=== PATIENT | female | born 1935 | race Caucasian/White ===

== ENCOUNTER 2020-07-04 12:52 | Outpatient (CLI) | payer MEDICARE, OTHER, SELFPAY ==
[2020-07-04] MEDS: iohexol 300 mg/mL 50 mL Btl PO (13:56)
--- NOTE | 2020-07-04 14:30 | CT_ITS ---
WS: [id number] CT scan of the chest With IV contrast, CT scan of the abdomen and pelvis with IV contrast and oral contrast. Additional two-dimensional coronal and sagittal reconstruction was performed. 07/04/2020 Clinical Data: MALIGNANT NEOPLASM OF UNSPECIFIED SITE, GASTROINTESTINAL HEMO Comparison: None. DLP: 1685.[address] scans at [facility] use at least one of these dose optimization techniques: automat ed exposure control; mA and/or kV adjustment per patient size (includes targeted exams where dose is matched to clinical indication); or iterative reconstruction. Findings: Chest: No nodules, masses or effusions are seen. The patient's had a right mastectomy. The heart size is at the upper limits of normal with no pericardial effusion. No pneumonia or pneumot horax is seen. There are coronary artery calcifications. The pulmonary arterial system and thoracic aorta demonstrate no dilatations. The thoracic aorta shows calcification in the wall. There is a small hiatal hernia. There is no axillary or significant mediastinal adenopathy. The bones of the thorax show only moderat e osteoarthritis of the thoracic vertebral bodies. Abdomen/pelvis: . The liver, gallbladder, spleen, adrenal glands and pancreas are normal. The right kidney show excellent contrast excretion with no masses or hydronephrosis. There is a sma ll right renal cortical cyst. The left kidney is atrophic but still functions. No left renal masses o r hydronephrosis is seen. The abdominal aorta is normal in size with calcification in the wall. No appendicitis or diverticulitis is seen. Oral contrast is in the stomach and small bowel and there is no bowel dilatation. There is fecal material throughout the colon. No abscess, adenopathy, ascites , mass, obstruction or free air is seen. The bladder is unremarkable. The uterus has scattered calcifications within. No inguinal hernia is se en. There is moderate osteoarthritis of the lumbar vertebral bodies with a 0.4 cm subluxation of L4 on L5 and degenerative disc disease at L5-S1. CT/CT chest abd pel w con* Impression: 1. Negative for acute cardiopulmonary disease. 2. Negative for acute intra-abdominal or pelvic abnormalities. 3. Cardiomegaly and coronary artery calcification. 4. Small left kidney.
[2020-07-04] MEDS: iodixanol 320 mg/mL 100mL Btl IV (14:44)
== END 2020-07-04 12:53 | disposition home or self-care (01) ==
PROVIDERS: PCP Family Medicine; Visit Provider Family Medicine
DX: C50.919 Malignant neoplasm of unspecified site of unspecified female breast (principal); D64.9 Anemia, unspecified; K92.2 Gastrointestinal hemorrhage, unspecified; I51.7 Cardiomegaly; I25.10 Atherosclerotic heart disease of native coronary artery without angina pectoris
CPT/HCPCS: 71260; 74177; Q9967

== ENCOUNTER → 2020-07-21 13:13 | Day surgery (SDC) | payer MEDICARE, OTHER, SELFPAY ==
[2020-07-21 13:30] VITALS: BP 160/67; PULSE 59; RESP 16; TEMP 37.3; O2SAT 99
[2020-07-21 13:31] VITALS: BMI 23.7
[2020-07-21 13:51] LABS: Hematocrit 30.1 % (37.0-47.0); Hemoglobin 8.9 g/dL (11.5-15.3)
[2020-07-21] MEDS: ferric carboxy (IVPB) 750 MG in sodium chloride 0.9% (100 ml) 100 ML 345 MG IV (14:15)
[2020-07-21 14:58] VITALS: BP 192/66; PULSE 63; RESP 18; TEMP 36.6; O2SAT 100
== END ==
PROVIDERS: Internal Medicine Cardiovascular Disease; PCP Family Medicine; Visit Provider Family Medicine
DX: Z78.9 Other specified health status (principal); D50.9 Iron deficiency anemia, unspecified; D64.9 Anemia, unspecified; C18.9 Malignant neoplasm of colon, unspecified
CPT/HCPCS: 85014; 85018; 96365; J1439

== ENCOUNTER → 2020-07-28 13:43 | Day surgery (SDC) | payer MEDICARE, OTHER, SELFPAY ==
[2020-07-28 14:16] LABS: Hematocrit 32.2 % (37.0-47.0); Hemoglobin 9.6 g/dL (11.5-15.3)
[2020-07-28] MEDS: ferric carboxy (IVPB) 750 MG in sodium chloride 0.9% (100 ml) 100 ML 345 MG IV (14:29)
[2020-07-28 14:35] VITALS: BP 160/67; PULSE 61; RESP 18; TEMP 36.7; O2SAT 98
== END ==
PROVIDERS: PCP Family Medicine; Visit Provider Family Medicine
DX: D50.9 Iron deficiency anemia, unspecified (principal); C18.9 Malignant neoplasm of colon, unspecified
CPT/HCPCS: 85014; 85018; 96365; J1439

== ENCOUNTER 2020-08-12 14:43 | Inpatient (IN) | payer MEDICARE, OTHER, SELFPAY ==
[2020-08-12] VITALS (17 sets, daily range): BP systolic 114–189; BP diastolic 57–94; PULSE 54–77; RESP 16–21; TEMP 36.6–37.4; O2SAT 92–96; BMI 23.0
--- NOTE | 2020-08-12 14:56 | ECG_ITS ---
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: : 1935 Requested By: Danny Jones Order Number: [id number] Reading MD: SEVERO LEVIN Measurements Intervals [place] Rate: 64 P: 62 FL: 211 QRS: -38 QRSD: 158 T: 117 QT: 468 QTc: 486 Interpretive Statements SINUS RHYTHM WITH FIRST DEGREE AV BLOCK LEFT AXIS DEVIATION [QRS AXIS < -30] LEFT BUNDLE BRANCH BLOCK [120+ ms QRS DURATION, 80+ ms Q/S IN V1/V2, 85+ ms R IN I/aVL/V5/V6] Compared to ECG 12/10/2018 09:21:00 First degree AV block now present Left-axis deviation now present Left bundle-branch block now present Atrial fibrillation no longer present Myocardial infarct finding no longer present T-wave abnormality no longer present Possible ischemia no longer present Electronically Signed On 08-12-2020 19:18:34 CDT by SEVERO LEVIN [id number]
--- NOTE | 2020-08-12 14:56 | XRR_ITS ---
PROCEDURE INFORMATION: Exam: XR Chest Exam date and time: 08/12/2020 2:58 PM Age: 85 years old Clinical indication: Cough and dyspnea; Additional info: Dyspnea/cough TECHNIQUE: Imaging protocol: XR of the chest. Views: 1 view. COMPARISON: CT chest abd pel w con* 07/04/2020 2:40 PM FINDINGS: Lungs: Hyperinflation. No CHF or focal consolidation. Pleural spaces: Unremarkable. No pleural effusion. No pneumothorax. Heart/Mediastinum: Unremarkable. No cardiomegaly. Bones/joints: No acute findings. XR/XR chest 1V portable [id number] IMPRESSION: No acute findings.
--- NOTE | 2020-08-12 15:09 | W.ED.CHESTPA ---
HPI - Chest Pain General: Chief Complaint: Chest Pain Stated Complaint: SOB Time Seen by Provider: 08/12/20 14:45 History of Present Illness: HPI narrative: 85-year-old female with a known history of coronary disease and atrial fibrillation. She presents to the emergency room with complaints of increasing shortness of breath decreasing exercise tolerance she states she has had this for several days but it got particularly noticeable and worse since yesterday. She has a accompanying chest heaviness/discomfort with it as well. She recently has been transitioning come from carvedilol to amiodarone by mouth under the supervision of her occasional babysitter. Additionally she recently had a colonoscopy and an EGD. On a colonoscopy there is a large polyp removed there planning to rebiopsy this area. It was evidently found to be cancerous but because of her overall medical condition resection has not been pursued at this point. Prior to the colonoscopy she was on Xarelto but that was stopped. She also had previously been on digoxin that was stopped as well we have been monitoring her hemoglobin. It actually been increasing in 4 to was [id number] it was 9 6. She is not had any bright red blood per rectum. Her son is a physician and noted that she had increased crackles and there is a concern of congestive heart failure. She had a coronary angiogram done approximately a year ago in [place] there were some complications it was dissected and they had to do a procedure to bypass the damaged vessel. Per the son previous echocardiogram showed an EF of 35%. MD complaint: chest heaviness and chest discomfort Pertinent past history: coronary artery disease and other (Atrial fibrillation) Onset (ago): day(s) (1) Timing of current episode: episodic Onset: during exertion Pain radiation: none Severity: mild Quality: heaviness Relieving factors: rest Exacerbating factors: exertion Context: recent surgery and new medications Associated symptoms: Reports dyspnea, leg edema and nausea; Deny abdominal pain, diaphoresis, fever(s), palpitations, sense of impending doom, syncope or vomiting Treatment prior to arrival: none Review of Systems Const: Denies: fever(s) or diaphoresis ENMT: Denies: throat pain, ear or mastoid pain, nasal discharge or nasal congestion Card: Denies: palpitations or syncope Resp: Reports: dyspnea GI: Reports: nausea; Denies: abdominal pain or vomiting : Denies: flank pain, difficulty voiding, dysuria, urinary frequency or urinary urgency Skin/Breast: Denies: rash or pruritus PFSH ED PFSH: Medical History (Updated 08/14/20 @ 11:17 by Danny Bennett DO) Atrial flutter Breast cancer CAD (coronary artery disease) Dissection of coronary artery HTN (hypertension) Hyperlipidemia Ischemic cardiomyopathy Surgical History (Updated 08/12/20 @ 17:46 by Nicolas Murphy MD) H/O mastectomy Hx of colonoscopy with polypectomy S/P right coronary artery (RCA) stent placement Status post insertion of drug-eluting stent into left anterior descending (LAD) artery for coronary artery disease Family History Mother Alzheimer disease Father Stroke Atrial fibrillation Other CAD (coronary artery disease) Hyperlipidemia Hypertension Social History Smoking and tobacco status: never smoked Alcohol intake: never Physical Exam Const: COMMON NORMALS: no acute distress GENERAL APPEARANCE: cooperative and comfortable ORIENTATION/CONSCIOUSNESS: Yes awake, Yes oriented to person, Yes oriented to place and Yes oriented to time HENMT: COMMON NORMALS: normocephalic, atraumatic and hearing grossly normal bilaterally HEAD & SCALP: normocephalic and atraumatic Resp: AUSCULTATION: crackles Cardio: COMMON NORMALS: No murmurs present (Cardio) RATE: bradycardic RHYTHM: abnormal rhythm irregularly irregular GI: COMMON NORMALS: Soft to palpation and No hepatosplenomegaly present AUSCULTATION: Yes normoactive bowel sounds PALPATION: Yes Soft to palpation, No Tenderness to palpation present (GI), No Guarding due to palpation present (GI) and Yes No hepatosplenomegaly present Extremity: COMMON NORMALS: normal to inspection, capillary refill normal, no clubbing, cyanosis or edema, no calf tenderness and no pedal edema Neuro: SENSORIUM/ORIENTATION: Yes oriented to person, Yes oriented to place and Yes oriented to time Skin: COMMON NORMALS: no rashes or lesions noted GENERAL SKIN EXAM: no rashes or lesions noted Course Vital Signs: Vital signs: Vital Signs Temperature 98.3 F 08/14/20 10:45 Pulse Rate 66 08/14/20 10:45 Respiratory Rate 19 H 08/14/20 10:45 Blood Pressure 136/69 04/26/21 10:45 Pulse Oximetry 96 08/14/20 10:45 MDM - Chest Pain MDM Narrative: Medical decision making narrative: Admit. She has a new left bundle branch block CPK is not significantly elevated does appear she is in congestive heart failure discussed with her sons, one of whom is a physician on staff here as well as with Dr. Marcum. Orders are written echo is been ordered. Lab Data: Labs: Lab Results 08/12/20 08/12/20 08/12/20 Range/Units 15:02 15:02 15:02 WBC 11.7 H (4.0-10.0) 10^3/ uL RBC 4.67 (4.1-5.3) 10^6/u L Hgb 13.0 (11.5-15.3) g/dL Hct 41.6 (37.0-47.0) % MCV 89.1 (81-99) fL MCH 27.8 L (28.0-34.0) pg MCHC 31.3 (30.0-36.0) g/dL RDW 23.2 H (12.1-15.1) % Plt Count 225 (130-400) 10^3/c mm MPV 9.7 (7.4-10.4) fL Neut % (Auto) 80.3 % Lymph % (Auto) 9.7 % [place] % (Auto) 8.9 % Eos % (Auto) 0.4 % Baso % (Auto) 0.4 % Neut # (Auto) 9.39 H (1.8-7.7) 10^3/u L Lymph # (Auto) 1.1 (0.8-4.8) 10^3/u L [place] # (Auto) 1.0 H (0.2-0.9) 10^3/u L Eos # (Auto) 0.1 (0.0-0.8) 10^3/u L Baso # (Auto) 0.1 (0.0-0.1) 10^3/u L Nucleated RBC % (a uto) 0 % Nucleated RBCs # 0.0 /100WBC Sodium 132 L (136-145) mmol/L Potassium 3.6 (3.5-5.1) mmol/L Chloride 94 L (98-107) mmol/L Carbon Dioxide 26 (22-29) mmol/L Anion Gap 15.6 (5-19) BUN 10 (8-23) mg/dL Creatinine 0.8 (0.5-0.9) mg/dL GFR Calculation Not Reportable Glucose 115 (65-115) mg/dL Calculated Osmolal ity 274 L (285-295) mOsm/k g Calcium 8.6 (8.5-10.5) mg/dL Magnesium 1.9 (1.7-2.3) mg/dL Total Bilirubin 1.1 (0.15-1.2) mg/dL AST 13 (0-32) U/L ALT 13 (0-33) U/L Alkaline Phosphata se 117 H (35-105) IU/L Creatine Kinase (26-192) U/L Troponin T Baselin e 41 H (0-10) ng/L NT-Pro-B Natriuret Pep 3124 H (0-450) pg/mL Total Protein 6.2 L (6.6-8.7) g/dL Albumin 4.2 (3.5-5.2) g/dL Globulin 2.0 (1.3-4.6) g/dL Folate (4.8-37.3) ng/mL TSH 3.43 (0.27-4.20) uIU/ mL Urine Color (Yellow) Urine Appearance (CLEAR) Urine pH (5-7) Ur Specific Gravit y (1.005-1.030) Urine Protein (Negative) Urine Glucose (UA) (Normal) Urine Ketones (Negative) Urine Blood (Negative) Urine Nitrate (Negative) Urine Bilirubin (Negative) Urine Urobilinogen (Negative) mg/dL Ur Leukocyte Meenu ase (Negative) Urine RBC (0-2) /hpf Urine WBC (0-5) /hpf Ur Squamous Epith Cells (0-5) /hpf Amorphous Sediment Urine Bacteria (NONE) /hpf Digoxin (0.6-1.2) ng/mL 08/12/20 08/12/20 08/12/20 Range/Units 15:02 15:02 15:02 WBC (4.0-10.0) 10^3/ uL RBC (4.1-5.3) 10^6/u L Hgb (11.5-15.3) g/dL Hct (37.0-47.0) % MCV (81-99) fL MCH (28.0-34.0) pg MCHC (30.0-36.0) g/dL RDW (12.1-15.1) % Plt Count (130-400) 10^3/c mm MPV (7.4-10.4) fL Neut % (Auto) % Lymph % (Auto) % [place] % (Auto) % Eos % (Auto) % Baso % (Auto) % Neut # (Auto) (1.8-7.7) 10^3/u L Lymph # (Auto) (0.8-4.8) 10^3/u L [place] # (Auto) (0.2-0.9) 10^3/u L Eos # (Auto) (0.0-0.8) 10^3/u L Baso # (Auto) (0.0-0.1) 10^3/u L Nucleated RBC % (a uto) % Nucleated RBCs # /100WBC Sodium (136-145) mmol/L Potassium (3.5-5.1) mmol/L Chloride (98-107) mmol/L Carbon Dioxide (22-29) mmol/L Anion Gap (5-19) BUN (8-23) mg/dL Creatinine (0.5-0.9) mg/dL GFR Calculation Glucose (65-115) mg/dL Calculated Osmolal ity (285-295) mOsm/k g Calcium (8.5-10.5) mg/dL Magnesium (1.7-2.3) mg/dL Total Bilirubin (0.15-1.2) mg/dL AST (0-32) U/L ALT (0-33) U/L Alkaline Phosphata se (35-105) IU/L Creatine Kinase 31 (26-192) U/L Troponin T Baselin e (0-10) ng/L NT-Pro-B Natriuret Pep (0-450) pg/mL Total Protein (6.6-8.7) g/dL Albumin (3.5-5.2) g/dL Globulin (1.3-4.6) g/dL Folate 12.2 (4.8-37.3) ng/mL TSH (0.27-4.20) uIU/ mL Urine Color (Yellow) Urine Appearance (CLEAR) Urine pH (5-7) Ur Specific Gravit y (1.005-1.030) Urine Protein (Negative) Urine Glucose (UA) (Normal) Urine Ketones (Negative) Urine Blood (Negative) Urine Nitrate (Negative) Urine Bilirubin (Negative) Urine Urobilinogen (Negative) mg/dL Ur Leukocyte Meenu ase (Negative) Urine RBC (0-2) /hpf Urine WBC (0-5) /hpf Ur Squamous Epith Cells (0-5) /hpf Amorphous Sediment Urine Bacteria (NONE) /hpf Digoxin 0.4 L (0.6-1.2) ng/mL 08/12/20 Range/Units 15:41 WBC (4.0-10.0) 10^3/ uL RBC (4.1-5.3) 10^6/u L Hgb (11.5-15.3) g/dL Hct (37.0-47.0) % MCV (81-99) fL MCH (28.0-34.0) pg MCHC (30.0-36.0) g/dL RDW (12.1-15.1) % Plt Count (130-400) 10^3/c mm MPV (7.4-10.4) fL Neut % (Auto) % Lymph % (Auto) % [place] % (Auto) % Eos % (Auto) % Baso % (Auto) % Neut # (Auto) (1.8-7.7) 10^3/u L Lymph # (Auto) (0.8-4.8) 10^3/u L [place] # (Auto) (0.2-0.9) 10^3/u L Eos # (Auto) (0.0-0.8) 10^3/u L Baso # (Auto) (0.0-0.1) 10^3/u L Nucleated RBC % (a uto) % Nucleated RBCs # /100WBC Sodium (136-145) mmol/L Potassium (3.5-5.1) mmol/L Chloride (98-107) mmol/L Carbon Dioxide (22-29) mmol/L Anion Gap (5-19) BUN (8-23) mg/dL Creatinine (0.5-0.9) mg/dL GFR Calculation Glucose (65-115) mg/dL Calculated Osmolal ity (285-295) mOsm/k g Calcium (8.5-10.5) mg/dL Magnesium (1.7-2.3) mg/dL Total Bilirubin (0.15-1.2) mg/dL AST (0-32) U/L ALT (0-33) U/L Alkaline Phosphata se (35-105) IU/L Creatine Kinase (26-192) U/L Troponin T Baselin e (0-10) ng/L NT-Pro-B Natriuret Pep (0-450) pg/mL Total Protein (6.6-8.7) g/dL Albumin (3.5-5.2) g/dL Globulin (1.3-4.6) g/dL Folate (4.8-37.3) ng/mL TSH (0.27-4.20) uIU/ mL Urine Color Yellow (Yellow) Urine Appearance Sl hazy (CLEAR) Urine pH 6.5 (5-7) Ur Specific Gravit y 1.010 (1.005-1.030) Urine Protein Neg (Negative) Urine Glucose (UA) Norm (Normal) Urine Ketones Negative (Negative) Urine Blood 2+ H (Negative) Urine Nitrate Negative (Negative) Urine Bilirubin Neg (Negative) Urine Urobilinogen Norm (Negative) mg/dL Ur Leukocyte Meenu ase 1+ H (Negative) Urine RBC 5-10 H (0-2) /hpf Urine WBC 10-15 H (0-5) /hpf Ur Squamous Epith Cells 0-4 H (0-5) /hpf Amorphous Sediment Not Reportable Urine Bacteria Trace (NONE) /hpf Digoxin (0.6-1.2) ng/mL Discharge Plan Discharge Patient Disposition: Admitted As Inpatient Admit Provider: Nicolas Murphy Clinical Impression: CHF (congestive heart failure), CAD (coronary artery disease), Atrial flutter, Ischemic cardiomyopathy, HTN (hypertension), Anemia Condition: Stable Discharge Diet: Cardiac Discharge Activity: Resume usual activity Coding Level of Care Code 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
[2020-08-12] MEDS: FUROsemide 10 mg/mL SDV 10mL 60 MG IVP (15:10)
[2020-08-12] MEDS: nitroglycerin 1 gm/inch oint Pkt 1 INCH TOPICAL (15:13)
[2020-08-12 15:28] LABS: Basophils # 0.1 10^3/uL (0.0-0.1); Basophils % 0.4 %; Eosinophils # 0.1 10^3/uL (0.0-0.8); Eosinophils % 0.4 %; Hematocrit 41.6 % (37.0-47.0); Lymphocytes # 1.1 10^3/uL (0.8-4.8); Lymphocytes % 9.7 %; Mean Corpuscular HGB Conc 31.3 g/dL (30.0-36.0); Mean Corpuscular Hemoglobin 27.8 pg (28.0-34.0); Mean Corpuscular Volume 89.1 fL (81-99); Mean Platelet Volume 9.7 fL (7.4-10.4); Monocytes % 8.9 %; Neutrophils # 9.39 10^3/uL (1.8-7.7); Neutrophils % 80.3 %; Nucleated Red Blood Cells % 0 %; Platelet Count 225 10^3/cmm (130-400); Red Blood Count 4.67 10^6/uL (4.1-5.3); Red Cell Distribution Width 23.2 % (12.1-15.1); White Blood Count 11.7 10^3/uL (4.0-10.0)
[2020-08-12 15:50] LABS: Troponin(5th) Baseline 41 ng/L (0-10)
[2020-08-12 16:01] LABS: Alanine Aminotransferase 13 U/L (0-33); Albumin Level 4.2 g/dL (3.5-5.2); Alkaline Phosphatase 117 IU/L (35-105); Anion Gap 15.6 (5-19); Aspartate Amino Transferase 13 U/L (0-32); Blood Urea Nitrogen 10 mg/dL (8-23); Calcium 8.6 mg/dL (8.5-10.5); Carbon Dioxide 26 mmol/L (22-29); Chloride 94 mmol/L (98-107); Glucose 115 mg/dL (65-115); Magnesium 1.9 mg/dL (1.7-2.3); NT Pro B Type Natriuretic Pept 3124 pg/mL (0-450); Osmolality Calculated 274 mOsm/kg (285-295); Potassium 3.6 mmol/L (3.5-5.1); Sodium 132 mmol/L (136-145); Thyroid Stimulating Hormone 3.43 uIU/mL (0.27-4.20); Total Bilirubin 1.1 mg/dL (0.15-1.2); Total Protein 6.2 g/dL (6.6-8.7)
[2020-08-12 16:06] LABS: Urine Appearance SL Hazy (CLEAR); Urine Color Yellow (Yellow); pH Urine 6.5 (5-7)
[2020-08-12 16:07] LABS: Add Urine Microscopic? YES; Bilirubin Urine Neg (Negative); Blood Urine 2+ (Negative); Glucose Urine UA Norm (Normal); Ketones Urine Negative (Negative); Leukocyte Esterase Urine 1+ (Negative); Nitrate Urine Negative (Negative); Protein Urine Neg (Negative); Urobilinogen Urine Norm (Negative)
[2020-08-12 16:08] LABS: Bacteria Urine TRACE /hpf; Squamous Epithelial Cell Urine 0-4 /hpf (0-5)
[2020-08-12 16:09] LABS: Add Urine Culture? Yes
[2020-08-12 16:20] LABS: Digoxin 0.4 ng/mL (0.6-1.2)
[2020-08-12 16:25] LABS: Creatine Phosphokinase 31 U/L (26-192)
--- NOTE | 2020-08-12 16:56 | ECG_ITS ---
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1935 Requested By: Danny Jones Order Number: [id number] Reading MD: SEVERO LEVIN Measurements Intervals [place] Rate: 66 P: 68 MT: 199 QRS: -45 QRSD: 172 T: 111 QT: 475 QTc: 501 Interpretive Statements SINUS RHYTHM LEFT AXIS DEVIATION [QRS AXIS < -30] LEFT BUNDLE BRANCH BLOCK [120+ ms QRS DURATION, 80+ ms Q/S IN V1/V2, 85+ ms R IN I/aVL/V5/V6] Compared to ECG 08/12/2020 14:52:27 First degree AV block no longer present Electronically Signed On 08-12-2020 19:19:27 CDT by SEVERO LEVIN [id number]
--- NOTE | 2020-08-12 17:36 | P.HP_ITS ---
Providers/Chief Complaint Admitting Physician: Nicolas Murphy MD Primary Care Provider: Betty Abreu MD Chief Complaint: SOB History of Present Illness Nika Abreu is a 85 year old female with past medical history of hypertension, hyperlipidemia, atrial fibrillation, CAD post PCI to LCx, LAD dissection, breast cancer postmastectomy, recent diagnosis of mucinous joi ocarcinoma of intestine, congestive heart failure who was brought into the ER today after feeling generalized weakness getting worse for 3 months along with worsening shortness of breath for last 2 weeks getting worse for last 4 days more so since last night. Shortness of breath that is worse on exertion unusual which has been getting worse gradually and occasionally even after lying down occasionally. Patient also states that for last few weeks she has been having burning sensation in the epigastric area going up to retrosternal area on exertion and on eating and drinking and taking pills. Patient had endoscopy at [place] last month which was reported normal. Patient also been having atrial fibrillation with rapid ventricular response on and off recently for which she has been transitioned over from carvedilol to amiodarone. Patient was recently started on amiodarone loading with 400 mg twice daily for 7 days which was shortened as patient regained normal sinus rhythm and developed bradycardia for which she was transitioned over to 200 mg twice daily with plan to further change to 200 mg daily. Carvedilol has also been weaned off from 25 mg twice daily to 6.25 mg twice daily. Of note, patient was also diagnosed of mucinous adenocarcinoma of intestine while work-up of anemia to recent colonoscopy. Patient most likely is being worked up for possible hemicolectomy at [place]. Patient denies any nausea, vomiting, headache, dizziness, abdominal pain, cough, fever, sick contacts, swelling in legs more than usual recently. Blood work in the ER showed white count of 11.7, hemoglobin of 13 which is most recently 9.6 on July 28, sodium of 132, chloride of 94, creatinine of 0.8, magnesium of 1.9, AST/ALT of 13/13, alkaline phosphatase of 117 with baseline troponin of 41 and delta of 1.45 in 2 hours, proBNP of 3124, TSH of 3.43. Urinalysis negative for any signs of UTI, digoxin of 0.4. EKG showing normal sinus rhythm with left bundle branch block which is new as well. Review of Systems General: Reports: 10 or more systems reviewed and unremarkable except in HPI and below Const: Denies: fever(s), chills, body aches, change in appetite, change in weight, malaise, night sweats, diaphoresis, change in sleep pattern, daytime sleepiness or snoring Eyes: Denies: change in vision, blurry vision, photophobia, eye discomfort or eye discharge ENMT: Denies: throat pain, enlarged tonsils, hoarseness, mouth pain, oral sores, dry mouth, tinnitus, nasal congestion or post nasal drip Card: Denies: chest pain, palpitations, irregular heart rhythm, edema, swelling of feet/ankles, lightheadedness, syncope, pre-syncope, dyspnea on exertion, orthopnea, leg pain with exertion or acrocyanosis Resp: Denies: dyspnea, productive cough, non-productive cough, wheezing, stridor, pain on inspiration, change in phlegm color, hemoptysis or chest congestion GI: Denies: abdominal pain, nausea, vomiting, hematemesis, coffee ground emesis, dysphagia, heartburn, diarrhea, constipation, bloating, GI cramping, change in bowel habits, pain on defecation, hematochezia or melena : Denies: flank pain, dysuria, urinary frequency, urinary urgency, urinary hesitancy, nocturia or hematuria Musc: Denies: neck pain, back pain, extremity pain, joint pain, joint swelling, joint redness, joint stiffness or limited range of motion Neuro: Denies: headache(s), numbness in extremities, weakness in extremities, sensory changes, lack of coordination, difficulty walking, frequent falls, diz ziness, vertigo, confusion, Slurred speech present, difficulty communicating thoughts or seizure-like activity Psych: Denies: anxiety, depression, mood swings, panic attacks, hopelessness or irritability Endo: Denies: polyuria, polydipsia, tired all the time, cold intolerance, excessive sweating, flushing or heat intolerance Kole/Lymph: Denies: easy bruising or easy bleeding All/Imm: Denies: tongue swelling, facial swelling or acute wheezing Medications/Allergies Home Medications Medication Instructions Recorded Confirmed Last Taken Type amiodarone See Rx Instructions .ROUTE .COMPLEX 08/12/20 08/12/20 08/12/20 08:00 History aspirin [Aspir-81] 162 mg PO DAILY@08/12/20 08/12/20 08/12/20 08:00 History atorvastatin 20 mg PO DAILY@08/12/20 08/12/20 08/11/20 History carvedilol 6.25 mg PO BID@,08/12/20 08/12/20 08/12/20 08:00 History cyanocobalamin (vitamin B-12) 1,000 mcg PO DAILY 08/12/20 08/12/20 Unknown History [Vitamin B-12] losartan-hydrochlorothiazide 0.5 tab PO BID@,08/12/20 08/12/20 08/12/20 08:00 History pantoprazole [Protonix] 40 mg PO DAILY@08/12/20 08/12/20 08/12/20 History Allergies Allergy/AdvReac Type Severity Reaction Status Date / Time Penicillins Allergy Unknown Verified 08/12/20 16:13 PFSH Acute PFSH: Medical History (Updated 08/12/20 @ 22:34 by Nicolas Murphy MD) Atrial flutter Breast cancer CAD (coronary artery disease) Dissection of coronary artery HTN (hypertension) Hyperlipidemia Surgical History (Updated 08/12/20 @ 17:46 by Nicolas Murphy MD) H/O mastectomy Hx of colonoscopy with polypectomy S/P right coronary artery (RCA) stent placement Status post insertion of drug-eluting stent into left anterior descending (LAD) artery for coronary artery disease Family History Mother Alzheimer disease Father Stroke Atrial fibrillation Other CAD (coronary artery disease) Hyperlipidemia Hypertension Social History Smoking and tobacco status: never smoked Alcohol intake: never Vitals/I&O/Wt Last Vital Signs Temp 99.4 F 08/12/20 14:48 Pulse 64 08/12/20 16:20 Resp 16 08/12/20 15:01 BP 174/91 08/12/20 16:20 Pulse Ox 94 08/12/20 16:20 Weight last 48 hrs Weight 60.781 kg Physical Exam Narrative: EXAM NARRATIVE: General: No acute distress, AO x3 HEENT: PERRLA, pupils bilaterally equal and reactive Chest: Normal vesicular breath sounds, no added sounds, equal good air entry bilaterally CVS: S1-S2 regular, no murmurs, no tachycardia, no gallops, no rubs Abdomen: Soft, nontender, no organomegaly, bowel sounds present Neuro: No focal deficits, no facial deformity, AO x3, power 5/5 in all limbs Data : 08/13/20 04:58 08/13/20 04:58 A&P Assessment and plan (1) SOB (shortness of breath): Status: Acute (2) CHF (congestive heart failure): Status: Acute (3) Atrial flutter: Status: Acute Qualifiers: Atrial flutter type: unspecified Qualified Code(s): I48.92 - Unspecified atrial flutter (4) CAD (coronary artery disease): Status: Acute Qualifiers: Associated angina: without angina Coronary Disease-Associated Artery/Lesion type: [place] artery [place] vs. transplanted heart: [place] heart Qualified Code(s): I25.10 - Atherosclerotic heart disease of [place] coronary artery without angina pectoris (5) Anemia: Status: Acute (6) Hyperlipidemia: Status: Acute Qualifiers: Hyperlipidemia type: mixed hyperlipidemia Qualified Code(s): E78.2 - Mixed hyperlipidemia (7) HTN (hypertension): Status: Acute Additional A&P Information 85-year-old female with past medical history of CAD, history of PCI to RCA and history of LAD dissection, congestive heart failure with last known EF of from 35% 2 years ago, atrial fibrillation, anemia presented to the ER today with symptoms suggestive of acute exacerbation of congestive heart failure and possib le angina. Shortness of breath: Most likely because of exacerbation of congestive heart failure. Infective source including pneumonia less likely. No consolidation seen on chest x-ray, no history of fever, no leukocytosis. Patient had relief in some of her symptoms after receiving IV Lasix in the ER and diuresing around 400 cc of urine. proBNP elevated. Start patient on Lasix 40 mg IV daily. Echocardiogram to rule out pericardial effusion, EF valvular abnormalities. Daily weights. Strict input output charting. Chances of pneumonia are low but clinically resolved. For now we will hold off on antibiotics. Check urine culture, sputum culture, urine Legionella. Because of history of CAD and some atypical symptoms cannot rule out angina. Cycle troponins. Continue with home dose of aspirin, statins. Check HbA1c, lipid panel. If troponin cycle remained negative and once patient is more euvolemic most likely will plan to do Lexiscan stress test. With ongoing amiodarone loading we will have to monitor QTC. EKG in a.m. Hypertension: Goal blood pressure less than 140/90 mmHg. For now monitor blood pressures. Continue home dose of losartan 50 mg twice daily, carvedilol 6.25 mg twice daily. If needed can add long-acting nitrates. Anemia: Hemoglobin recently 9.6. 13 today most likely an aberrancy. Check iron panel, ferritin, vitamin B12, folate levels. Continue home dose of vitamin B12 for now. Stool for occult blood especially with recent history of mucinous adenocarcinoma found on polypectomy. Continue home dose of Protonix. Hyponatremia: Sodium 132 right now. Most likely from congestive heart failure. We will continue to monitor. Continue diuretic therapy for now. CODE STATUS: Discussed with patient and son at bedside. For now patient would like to be full code but would not want to have prolonged life support/mechanical ventilation if she is not to have meaningful lifestyle. Protonix for PUD prophylaxis Cardiac diet . Covid negative. SCD for DVT prophylaxis. For now hold off on Lovenox Attestations Medical Necessity Statement*: Patient require admission for more than 2 midnights for management of congestive heart failure in setting of history of CAD and atrial fibrillation. Time Spent in Patient Care: Greater than 35 minutes (>than 50% of time spent in counselling and/or direct pt care on unit) . Coding Level of Care Code Acute [employer] for [facility] Fwd Diagnoses SOB (shortness of breath) R06.02 CHF (congestive heart failure) I50.9 Atrial flutter I48.92 Atrial flutter type: unspecified CAD (coronary artery disease) I25.10 Associated angina: without angina Coronary Disease-Associated Artery/Lesion type: [place] artery [place] vs. transplanted heart: [place] heart Anemia D64.9 Hyperlipidemia E78.2 Hyperlipidemia type: mixed hyperlipidemia HTN (hypertension) I10
--- NOTE | 2020-08-12 17:59 | PC.NURSE ---
total of 1350 ml of urine produced
--- NOTE | 2020-08-12 18:00 | PC.NURSE ---
Received pt from ER Pt is alert, awake, oriented. Denies any chest pain or discomfort. Son at bedside. Call light provided to pt.
[2020-08-12] MEDS: enoxaparin 40 mg/0.4 mL Syringe SUBCUT (18:30)
[2020-08-12] MEDS: potassium chloride ER 20 mEq Tablet 40 MEQ PO (18:30)
[2020-08-12] MEDS: amiodarone 200 mg Tablet PO (18:30)
[2020-08-12 18:35] LABS: Troponin 5 2HR 42.45 ng/L (0-10); Troponin 5 2HR Delta 1.45 ABS# (0-10)
[2020-08-12] MEDS: carvedilol 6.25 mg Tablet PO (20:29)
[2020-08-12] MEDS: losartan 50 mg Tablet PO (20:29)
[2020-08-12] MEDS: atorvastatin 40 mg Tablet 20 MG PO (20:29)
--- NOTE | 2020-08-12 20:56 | ECG_ITS ---
[facility] Test Date: 2020-08-12 Pat Name: Nika Abreu Department: Room: 105 Gender: Female Production Intern: : 1935 Requested By: Danny Jones Order Number: [id number] Reading MD: SEVERO LEVIN Measurements Intervals [place] Rate: 60 P: 70 MI: 212 QRS: 20 QRSD: 95 T: 46 QT: 470 QTc: 470 Interpretive Statements SINUS RHYTHM WITH FIRST DEGREE AV BLOCK ST DEVIATION AND MODERATE T-WAVE ABNORMALITY, CONSIDER ANTERIOR ISCHEMIA [-0.1+ mV T WAVE IN V3/V4] Compared to ECG 08/12/2020 17:14:16 First degree AV block now present T-wave abnormality now present Possible ischemia now present Left-axis deviation no longer present Left bundle-branch block no longer present Electronically Signed On 08-13-2020 21:17:05 CDT by SEVERO LEVIN [id number]
[2020-08-12 21:04] LABS: Potassium, Radom Urine 25 mmol/L; Urine Random Chloride 129 mmol/L; Urine Random Sodium 124 mmol/L
[2020-08-12 21:25] LABS: Folate Level 12.2 ng/mL (4.8-37.3)
[2020-08-12 21:25] LABS: Procalcitonin 0.05 ng/mL (0-0.5); Vitamin B12 444 pg/mL (232-1245)
[2020-08-12 21:37] LABS: Iron 26 ug/dL (37-145); Percent Saturation 9.5 % (20-50); Phosphorus 1.2 mg/dL (2.5-4.5); Total Iron Binding Capacity 273 mcg/dl; Unsaturated Iron Binding 247 ug/dL (112-347)
[2020-08-13] VITALS (12 sets, daily range): BP systolic 130–142; BP diastolic 58–67; PULSE 52–74; RESP 14–23; TEMP 36.7–36.9; O2SAT 95–97
[2020-08-13 00:10] LABS: Troponin 5 6HR 44.75 ng/L (0-10); Troponin 5 6HR Delta 3.75 ng/L (0-12)
[2020-08-13 06:16] LABS: Basophils # 0.1 10^3/uL (0.0-0.1); Basophils % 0.7 %; Eosinophils # 0.1 10^3/uL (0.0-0.8); Hematocrit 36.2 % (37.0-47.0); Hemoglobin 11.2 g/dL (11.5-15.3); Lymphocytes # 1.7 10^3/uL (0.8-4.8); Lymphocytes % 23.8 %; Mean Corpuscular HGB Conc 30.9 g/dL (30.0-36.0); Mean Corpuscular Hemoglobin 27.3 pg (28.0-34.0); Mean Corpuscular Volume 88.3 fL (81-99); Mean Platelet Volume 9.9 fL (7.4-10.4); Monocytes # 0.7 10^3/uL (0.2-0.9); Monocytes % 10.3 %; Neutrophils # 4.38 10^3/uL (1.8-7.7); Neutrophils % 62.8 %; Nucleated Red Blood Cells % 0 %; Platelet Count 185 10^3/cmm (130-400); Red Cell Distribution Width 23.2 % (12.1-15.1)
[2020-08-13 06:46] LABS: Alanine Aminotransferase 9 U/L (0-33); Albumin Level 3.3 g/dL (3.5-5.2); Alkaline Phosphatase 91 IU/L (35-105); Anion Gap 12.6 (5-19); Aspartate Amino Transferase 10 U/L (0-32); Blood Urea Nitrogen 11 mg/dL (8-23); Calcium 7.8 mg/dL (8.5-10.5); Carbon Dioxide 28 mmol/L (22-29); Chloride 97 mmol/L (98-107); Chol HDL Ratio 1.75 mg/dL (0.0-4.40); Cholesterol 105 mg/dL (0-200); Ferritin 640 ng/mL (15-150); Globulin 2.3 g/dL (1.3-4.6); Glucose 86 mg/dL (65-115); HDL Cholesterol 60 mg/dL (60-100); LDL Cholesterol Calculated 33 mg/dL (50-129); Magnesium 1.7 mg/dL (1.7-2.3); Osmolality Calculated 277 mOsm/kg (285-295); Phosphorus 2.5 mg/dL (2.5-4.5); Potassium 3.6 mmol/L (3.5-5.1); Sodium 134 mmol/L (136-145); Total Bilirubin 1.1 mg/dL (0.15-1.2); Total Protein 5.6 g/dL (6.6-8.7); Triglycerides 59 mg/dL (0-150); VLDL Cholestrol Calculation 12 mg/dL (0-30)
[2020-08-13 06:48] LABS: Estmated Average Glucose 80; Hemoglobin A1C 4.4 % (4.0-6.0)
--- NOTE | 2020-08-13 08:23 | ECG_ITS ---
[facility] Test Date: 2020-08-13 Pat Name: Nika Abreu Department: Room: 105 Gender: Female Eligibility Consultant: : 1935 Requested By: Nicolas Murphy Order Number: [id number] Reading MD: SEVERO LEVIN Measurements Intervals [place] Rate: 53 P: 68 NV: 215 QRS: -9 QRSD: 113 T: 90 QT: 455 QTc: 430 Interpretive Statements SINUS BRADYCARDIA WITH FIRST DEGREE AV BLOCK ANTERIOR MYOCARDIAL INFARCTION [40+ ms Q WAVE AND/OR ST/T ABNORMALITY IN V3/V4], PROBABLY RECENT INFERIOR MYOCARDIAL INFARCTION [40+ ms Q WAVE AND/OR ST/T ABNORMALITY IN II/aVF], OF INDETERMINATE AGE ACUTE TX Compared to ECG 08/12/2020 22:08:17 Myocardial infarct finding now present Sinus rhythm no longer present T-wave abnormality no longer present Possible ischemia no longer present Electronically Signed On 08-13-2020 21:16:52 CDT by SEVERO LEVIN [id number]
--- NOTE | 2020-08-13 08:59 | PC.NURSE ---
Verbal order from Dr. Murphy to not adminster AM medications at this time, as physician is going to make adjustments. After changes have been made, ok to administer.
--- NOTE | 2020-08-13 09:46 | P.PN_ITS ---
Subjective Subjective: Interval history: On examination today morning patient sitting in bed playing Scrabble. Family at bedside. Jovial mood. She states she had a restful night. States she is feeling a lot better today. States her energy levels are good and she does not have the scratchiness in her throat which she has been having for last few days. She states she is able to get air in her lungs today. 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 tach. Patient remained asymptomatic and was unaware of of the event. Vitals/I&O/Wt Last Vital Signs Temp 98.4 F 08/13/20 07:50 Pulse 74 08/13/20 09:35 Resp 23 H 08/13/20 07:50 BP 140/67 08/13/20 07:50 Pulse Ox 96 08/13/20 09:35 08/12/20 08/13/20 08/13/20 22:59 06:59 14:59 Intake Total 106.6667 / 106.6667 120 / 120 Output Total 800 / 800 300 / 1100 Balance -800 / -800 -193.3333 / -993.3333 120 / 120 Weight last 48 hrs Weight 63.231 kg Weight 60.781 kg Physical Exam Narrative: EXAM NARRATIVE: General: No acute distress, AO x3 HEENT: PERRLA, pupils bilaterally equal and reactive Chest: Normal vesicular breath sounds, no added sounds, equal good air entry bilaterally CVS: S1-S2 regular, pansystolic murmur at the apex 2/6 going up to the anterior axilla, no tachycardia, no gallops, no rubs Abdomen: Soft, nontender, no organomegaly, bowel sounds present Neuro: No focal deficits, no facial deformity, AO x3, power 5/5 in all limbs Data : 08/13/20 04:58 08/13/20 04:58 Micro: Microbiology 08/12/20 19:33 Legionella Urinary Antigen - Final Urethra A&P Assessment and plan (1) SOB (shortness of breath): Status: Acute (2) CHF (congestive heart failure): Echocardiogram done on August 13, 2020. EF of 40%, mid to distal anterior apical akinesis, grade 2 diastolic dysfunction, moderate MR. Status: Acute (3) Atrial flutter: Status: Acute Qualifiers: Atrial flutter type: unspecified Qualified Code(s): I48.92 - Unspecified atrial flutter (4) CAD (coronary artery disease): Status: Acute Qualifiers: Associated angina: without angina Coronary Disease-Associated Artery/Lesion type: [place] artery [place] vs. transplanted heart: [place] heart Qualified Code(s): I25.10 - Atherosclerotic heart disease of [place] coronary artery without angina pectoris (5) NSVT (nonsustained ventricular tachycardia): Status: Acute (6) Anemia: Status: Acute (7) Hyperlipidemia: Status: Acute Qualifiers: Hyperlipidemia type: mixed hyperlipidemia Qualified Code(s): E78.2 - Mixed hyperlipidemia (8) HTN (hypertension): Status: Acute (9) Ischemic cardiomyopathy: Status: Acute Additional A&P Information 85-year-old female with past medical history of CAD, history of PCI to RCA and history of LAD dissection, congestive heart failure with last known EF of from 35% 2 years ago, atrial fibrillation, anemia presented to the ER today with symptoms suggestive of acute exacerbation of congestive heart failure and poss ible angina. Shortness of breath: Most likely because of exacerbation of congestive heart failure. Infective source including pneumonia less likely. No consolidation seen on chest x-ray, no history of fever, no leukocytosis. Around 600 cc negative in last 12 hours since admission. Switch to oral Lasix. Start patient on Lasix 40 mg oral daily. Daily weights, strict input output charting. Ambulate in room and monitor symptoms. Echocardiogram results appreciated with a EF of 40%, mid to distal anterior apical akinesis, grade 2 diastolic dysfunction, moderate MR. Continue to hold off on antibiotics as pneumonia less likely. Nonsustained V. tach: Can be secondary to old scar from cardiac ischemia versus mildly prolonged QTC while getting amiodarone load. Monitor QTC with EKG. Change amiodarone to 200 mg daily. Continue with Coreg 6.25 mg twice daily. Hypertension: Goal blood pressure less than 140/90 mmHg. Continue with home dose of losartan 50 mg twice a day, carvedilol 6.25 mg twice a day. Add Imdur 15 mg daily. CAD: Continue with aspirin at 81 mg daily, statins. Beta-ermias and long-acting nitrate as above. Atrial fibrillation: Sinus rhythm at present. Continue with amiodarone 200 mg daily for now. Continue with Coreg. Monitor for bradycardia. Patient hemoglobin stable. Start patient on Xarelto 15 mg daily as per the creatinine clearance of 42. Anemia: Hemoglobin recently 9.6. 13 today most likely an aberrancy. Continue home dose of vitamin B12 for now. Stool for occult blood especially with recent history of mucinous adenocarcinoma found on polypectomy. Continue home dose of Protonix. Hyponatremia: Improving. 134 today. Most likely from congestive heart failure. We will continue to monitor. Continue diuretic therapy for now. CODE STATUS: Discussed with patient and son at bedside. For now patient would like to be full code but would not want to have prolonged life support/mechanical ventilation if she is not to have meaningful lifestyle. P rotonix for PUD prophylaxis Cardiac diet SCD for DVT prophylaxis. Attestations Medical Necessity Statement*: Requires further hospitalization for management of congestive heart failure, nonsustained V. tach, atrial fibrillation on amiodarone load. Time Spent in Patient Care: Greater than 35 minutes (>than 50% of time spent in counselling and/or direct pt care on unit) . Coding Level of Care Code Acute [employer] for g Fwd Diagnoses SOB (shortness of breath) R06.02 CHF (congestive heart failure) I50.9 Atrial flutter I48.92 Atrial flutter type: unspecified CAD (coronary artery disease) I25.10 Associated angina: without angina Coronary Disease-Associated Artery/Lesion type: [place] artery [place] vs. transplanted heart: [place] heart NSVT (nonsustained ventricular tachycardia) I47.2 Anemia D64.9 Hyperlipidemia E78.2 Hyperlipidemia type: mixed hyperlipidemia HTN (hypertension) I10 Ischemic cardiomyopathy I25.5
[2020-08-13] MEDS: carvedilol 6.25 mg Tablet PO ×2 (09:52→19:39)
[2020-08-13] MEDS: losartan 50 mg Tablet PO ×2 (09:52→17:25)
[2020-08-13] MEDS: cyanocobalamin 1,000 mcg Tablet 1000 MCG PO (09:52)
[2020-08-13] MEDS: FUROsemide 40 mg Tablet PO (09:53)
[2020-08-13] MEDS: amiodarone 200 mg Tablet PO (09:53)
[2020-08-13] MEDS: aspirin 81 mg EC Tablet PO (09:53)
[2020-08-13] MEDS: pantoprazole DR 40 mg Tablet PO (09:53)
[2020-08-13] MEDS: magnesium sulfate premix 2 GM/50 ML PIGGYBACK IV (09:55)
--- NOTE | 2020-08-13 12:01 | PC.CHAP ---
Pastoral Care Encounter/Spiritual Assessment Type of Contact [] Declined merchandise pickup/receiving associate visit [] Patient/Family/Request visit [] Outpatient visit [] Follow-up visit [] Physician referral [] Code/Alert [XX] Routine visit [] Staff referral [] Actively dying [] Patient sleeping [] Family support [] [] Out of room [] Palliative care [] [] Receiving care in room [] Pre-surgical visit [] Trauma [] Long length of stay [] ICU visit [] Other: Relational/Emotional Strength [XX] Patient feels connected with others/family/visitors/staff [] Distress [] Loneliness/isolation [] Abandonment Spirituality of Patient [XX] Person of [place] [] Attends Oriental Orthodox of their [place] [XX] Believes in Prayer [] Reads Bible or Adventism materials [] There are Spiritual issues to be addressed Scaffolder Interventions [XX] Prayer [XX] Active listening [XX] Non-anxious presence [XX] Spiritual/emotional support [] Crisis/trauma care [] Spiritual counseling [] Bereavement support [] Provided bereavement packet [] Provided Bible/devotional materials [] Provided toy/stuffed animal, coloring book to patient or family member [] Provided Communion [] Anointing/[place] [] Salvation [XX] Completed spiritual assessment [] Other: Impact on Illness or Injury [] Angry [] Fearful [] Anxious [] Often cries [] Exhaustion [] Unable to work [] Unable to attend hinduism [] Unable to walk/stand [] Unable to read [] Unable to drive [] Unable to eat/drink [] Unable to sleep [] Unable to be with family [] Patient intubated [XX] Other: she recognizes that she may have to make adjustments in her life in order to maintain independent living Summary: Pt is in good spirits and has an attitude of gratitude, but is also facing some adjustments in her independence. She knows this is necessary and will adjust, but yet, the adjustments indicate the entry into a new phase of life which brings with it some loss/sadness. Time spent with patient: 30 mins
[2020-08-13] MEDS: rivaroxaban 10 mg Tablet 15 MG PO (17:24)
--- NOTE | 2020-08-13 17:36 | USCV_ITS ---
Nika Abreu Age: 85 Gender: F : 1935 Exam Date: 08/13/2020 06:28 Ordering Phys: Danny Bennett DO Technologist: Madeleine Vergara Exam Location: [facility] [place] Indication: CHF, H/o EF 35% BP: 138 / 63 HR: 50 Rhythm: Sinus Technical Quality: Adequate MEASUREMENTS (Male / Female) Normal Values 2D ECHO LV Diastolic Diameter PLAX 4.7 cm 4.2 - 5.9 / 3.9 - 5.3 cm LV Systolic Diameter PLAX 2.8 cm LV Chamber Size 4.6 cm IVS Diastolic Thickness 1.3 cm 0.6 - 1.0 / 0.6 - 0.9 cm IVS Systolic Thickness 1.8 cm LVPW Diastolic Thickness 1.2 cm 0.6 - 1.0 / 0.6 - 0.9 cm LVPW Systolic Thickness 1.5 cm RV Chamber Size 2.2 cm LVOT Diameter 1.8 cm LA Diameter 4.1 cm LA Width 3.8 cm LA Height 6.2 cm RA Width 2.4 cm RA Height 5.1 cm Aorta at Sinotubular Diameter 2.3 cm M-MODE LV Diastolic Diameter MM 5.0 cm 4.2 - 5.9 / 3.9 - 5.3 cm LV Systolic Diameter MM 3.6 cm LV Ejection Fraction MM Teich 54.8 % IVS Diastolic Thickness MM 1.1 cm 0.6 - 1.0 / 0.6 - 0.9 cm IVS Systolic Thickness MM 1.9 cm LVPW Diastolic Thickness MM 1.6 cm 0.6 - 1.0 / 0.6 - 0.9 cm LVPW Systolic Thickness MM 2.0 cm Aortic Annulus Diameter 2.7 cm LA Ao Ratio MM 1.6 MV E Point Septal Separation 0.7 cm DOPPLER AV Peak Velocity 159.0 cm/s LVOT Peak Velocity 124.0 cm/s AV Area Cont Eq vti 2.1 cm squared AV Area Cont Eq pk 2.1 cm squared MV Peak Velocity 127.0 cm/s MV Area PHT 2.7 cm squared Mitral E to A Ratio 1.9 MV E' Velocity 66.5 cm/s Mitral E to MV E' Ratio 30.4 Mitral E to LV E' Lateral Ratio 25.0 Mitral E to LV E' Septal Ratio 38.7 TR Peak Velocity 293.9 cm/s TR Peak Gradient 34.5 mmHg TR Mean Velocity 220.9 cm/s TR Mean Gradient 20.6 mmHg TR Velocity Time Integral 112.3 cm TV Peak E Velocity 49.0 cm/s Right Atrial Pressure 3.0 mmHg Pulmonary Artery Systolic Pressu 37.5 mmHg PV Peak Velocity 65.0 cm/s RV Acceleration Time 0.1 s RV Ejection Time 0.4 s RV AcT/ET 0.2 FINDINGS Left Ventricle Normal left ventricular cavity size. Moderately decreased left ventricular systolic function. Left ventricular ejection fraction is estimated at 40 %. There appeared to be Mid to distal anterior apical akinesis suggestive of ischemic heart disease.Grade II/IV diastolic dysfunction, moderately elevated filling pressures. Right Ventricle The right ventricle is normal in size and function. Right Atrium The right atrium is normal in size. Left Atrium Moderately increased left atrial size. Mitral Valve Mildly thickened mitral valve. No mitral valve stenosis. Moderate mitral valve regurgitation. Aortic Valve Structurally normal aortic valve without significant sclerosis or stenosis. There is no aortic regurgitation. Tricuspid Valve Structurally normal tricuspid valve without significant stenosis or regurgitation. Pulmonary artery systolic pressure is normal. Pulmonic Valve Mild pulmonary valve regurgitation. Pericardium Normal pericardium without effusion. Aorta Normal ascending aorta dimension. CONCLUSIONS 1-Normal left ventricular cavity size. Moderately decreased left ventricular systolic function. Left ventricular ejection fraction is estimated at 40 %. There appeared to be Mid to distal anterior apical akinesis suggestive of ischemic heart disease.Grade II/IV diastolic dysfunction, moderately elevated filling pressures. 2-No significant valve abnormalities. 3-There is no pericardial effusion. 4-Pulmonary artery systolic pressure is within normal limits. 5-Right atrial pressure is around 5 mm of mercury. 6-No significant change since the prior echocardiogram study of 12/10/2018. Kevin Allen MD (Electronically Signed) Final Date: 13 August 2020 14:48 S
[2020-08-13] MEDS: atorvastatin 40 mg Tablet 20 MG PO (19:39)
[2020-08-14] VITALS: BP 130/57; PULSE 54; RESP 14; TEMP 36.6; O2SAT 93
[2020-08-14 04:00] VITALS: BP 160/65; PULSE 60; RESP 14; TEMP 36.8; O2SAT 96
[2020-08-14 05:05] LABS: Alanine Aminotransferase 11 U/L (0-33); Albumin Level 3.4 g/dL (3.5-5.2); Alkaline Phosphatase 91 IU/L (35-105); Anion Gap 10.5 (5-19); Aspartate Amino Transferase 11 U/L (0-32); Blood Urea Nitrogen 13 mg/dL (8-23); Calcium 8.2 mg/dL (8.5-10.5); Carbon Dioxide 29 mmol/L (22-29); Chloride 97 mmol/L (98-107); Globulin 2.3 g/dL (1.3-4.6); Glucose 90 mg/dL (65-115); Magnesium 2.2 mg/dL (1.7-2.3); Osmolality Calculated 276 mOsm/kg (285-295); Potassium 3.5 mmol/L (3.5-5.1); Sodium 133 mmol/L (136-145); Total Bilirubin 0.8 mg/dL (0.15-1.2); Total Protein 5.7 g/dL (6.6-8.7)
[2020-08-14 06:00] VITALS: PULSE 60; BMI 23.2
[2020-08-14 08:00] VITALS: BP 136/69; PULSE 66; RESP 19; TEMP 36.8; O2SAT 96
[2020-08-14 08:16] VITALS: BP 136/69
[2020-08-14] MEDS: isosorbide mononitrate ER 30 mg Tablet 15 MG PO (08:16)
[2020-08-14] MEDS: pantoprazole DR 40 mg Tablet PO (08:16)
[2020-08-14] MEDS: cyanocobalamin 1,000 mcg Tablet 1000 MCG PO (08:16)
[2020-08-14] MEDS: amiodarone 200 mg Tablet PO (08:16)
[2020-08-14] MEDS: aspirin 81 mg EC Tablet PO (08:16)
[2020-08-14] MEDS: losartan 50 mg Tablet PO (08:16)
[2020-08-14] MEDS: FUROsemide 40 mg Tablet PO (08:16)
[2020-08-14] MEDS: carvedilol 6.25 mg Tablet PO (08:17)
--- NOTE | 2020-08-14 08:34 | ECG_ITS ---
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: : 1935 Requested By: Nicolas Murphy Order Number: [id number] Reading MD: SEVERO LEVIN Measurements Intervals [place] Rate: 54 P: 72 AL: 222 QRS: -15 QRSD: 109 T: 75 QT: 417 QTc: 399 Interpretive Statements SINUS BRADYCARDIA WITH FIRST DEGREE AV BLOCK POSSIBLE ANTERIOR MYOCARDIAL INFARCTION [30 ms Q WAVE IN V3/V4, OR R < 0.2 mV IN V4], OF INDETERMINATE AGE INFERIOR MYOCARDIAL INFARCTION [40+ ms Q WAVE AND/OR ST/T ABNORMALITY IN II/aVF], PROBABLY OLD Compared to ECG 08/13/2020 08:53:40 No significant changes Electronically Signed On 08-14-2020 21:30:06 CDT by SEVERO LEVIN [id number]
[2020-08-14] MEDS: potassium chloride ER 20 mEq Tablet 40 MEQ PO (08:46)
--- NOTE | 2020-08-14 09:06 | P.DS_ITS ---
Discharge Providers Date of Admission: 08/12/20 16:36 Date of Discharge: August 14, 2020 Attending Provider at Admission: Nicolas Murphy MD Attending Provider at Discharge: Nicolas Murphy MD Primary Care Provider: Betty Abreu MD Diagnoses at Discharge Discharge Diagnosis (1) SOB (shortness of breath): Status: Acute (2) CHF (congestive heart failure): Status: Acute (3) Atrial flutter: Status: Acute Qualifiers: Atrial flutter type: unspecified Qualified Code(s): I48.92 - Unspecified atrial flutter (4) CAD (coronary artery disease): Status: Acute Qualifiers: Associated angina: without angina Coronary Disease-Associated Artery/Lesion type: [place] artery [place] vs. transplanted heart: [place] heart Qualified Code(s): I25.10 - Atherosclerotic heart disease of [place] coronary artery without angina pectoris (5) NSVT (nonsustained ventricular tachycardia): Status: Acute (6) Anemia: Status: Acute (7) Hyperlipidemia: Status: Acute Qualifiers: Hyperlipidemia type: mixed hyperlipidemia Qualified Code(s): E78.2 - Mixed hyperlipidemia (8) HTN (hypertension): Status: Acute (9) Ischemic cardiomyopathy: Status: Acute Reason for Visit Reason for Visit: SOB Hospital Course Hospital Course Nika Abreu is a 85 year old female with past medical history of hypertension, hyperlipidemia, atrial fibrillation, CAD post PCI to LCx, LAD dissection, breast cancer postmastectomy, recent diagnosis of mucinous adenocarcinoma of intestine, congestive heart failure who was brought into the ER today after feeling generalized weakness getting worse for 3 months along with worsening shortness of breath for last 2 weeks getting worse for last 4 days more so since last night. Shortness of breath that is worse on exertion unusual which has been getting worse gradually and occasionally even after lying down occasionally. Patient also states that for last few weeks she has been having burning sensation in the epigastric area going up to retrosternal area on exertion and on eating and drinking and taking pills. Patient had endoscopy at [facility] last month which was reported normal. Patient also been having atrial fibrillation with rapid ventricular response on and off recently for which she has been transitioned over from carvedilol to amiodarone. Patient was recently started on amiodarone loading with 400 mg twice daily for 7 days which was shortened as patient regained normal sinus rhythm and developed bradycardia for which she was transitioned over to 200 mg twice daily with plan to further change to 200 mg daily. Carvedilol has also been weaned off from 25 mg twice daily to 6.25 mg twice daily. Of note, patient was also diagnosed of mucinous adenocarcinoma of intestine while work-up of anemia to recent colonoscopy. Patient most likely is being worked up for possible hemicolectomy at [facility]. Patient denies any nausea, vomiting, headache, dizziness, abdominal pain, cough, fever, sick contacts, swelling in legs more than usual recently. Blood work in the ER showed white count of 11.7, hemoglobin of 13 which is most recently 9.6 on July 28, sodium of 132, chloride of 94, creatinine of 0.8, magnesium of 1.9, AST/ALT of 13/13, alkaline phosphatase of 117 with baseline troponin of 41 and delta of 1.45 in 2 hours, proBNP of 3124, TSH of 3.43. Urinalysis negative for any signs of UTI, digoxin of 0.4. EKG showing normal sinus rhythm with left bundle branch block which is new as well. She is going to the hospital for management of symptoms concerning for angina and congestive heart failure. She was started on diuretics to which she responded well. Post diuresis her symptoms alleviated within 24 hours. During hospitalization she was found to have multiple VPCs and one episode of 18 beats nonsustained V. tach. On review of EKGs it was seen patient to have sinus bradycardia with mild prolonged QTC. As patient is being transition of drug loading with amiodarone the dose of amiodarone was decreased to 200 mg once a day, while carvedilol was continued at the same dose. Magnesium was kept around 2.5 while potassium is to be kept around 4. For her symptoms of angina poss ibility of stress test was discussed with the family but decision was to treat medically for now. During hospitalization patient was found to have borderline elevated blood pressures for which long-acting nitrate with Imdur was added. Her hemoglobin was found to be around 11 which is more than her current baseline of around 9 so she was restarted on Xarelto for anticoagulation. She has been discharged in hemodynamically stable condition with advised to take amiodarone 200 mg once a day, carvedilol 6.25 mg twice daily, Lasix which is the new medication 40 mg once a day along with potassium. She is to recheck her BMP and CBC in 1 week. As patient had episode of nonsustained V. tach and multiple VPCs event monitor was placed for the patient with advised to follow-up with cardiology within next 1 week. Patient's care plan was discussed in detail with patient and her family at bedside and they were all agreeable. Physical Exam Narrative: EXAM NARRATIVE: General: No acute distress, AO x3 HEENT: PERRLA, pupils bilaterally equal and reactive Chest: Normal vesicular breath sounds, no added sounds, equal good air entry bilaterally CVS: S1-S2 regular, pansystolic murmur at the apex 2/6 going up to the anterior axilla, no tachycardia, no gallops, no rubs Abdomen: Soft, nontender, no organomegaly, bowel sounds present Neuro: No focal deficits, no facial deformity, AO x3, power 5/5 in all limbs Discharge Data Data Completed and Pending: Completed Studies During Hospitalization Category Date Time Status XR chest 1V [place] ble [id number] Stat Exams 08/12/20 14:56 Completed CV echo complete* [id number] Routine Ultrasound 08/13/20 17:36 Completed Pending at discharge Category Date Time Status Immunochemical Fe bee OCB Routine Lab 08/12/20 22:46 Uncollected Phosphorus Routin e Lab 08/14/20 03:06 Received Sputum Culture an d Gram Stain Stat Lab 08/12/20 17:44 Uncollected Urine Culture Sta t Lab 08/12/20 15:41 Results Labs from last 24 hours 08/14/20 08/14/20 03:06 03:06 Sodium 133 L Potassium 3.5 Chloride 97 L Carbon Dioxide 29 Anion Gap 10.5 BUN 13 Creatinine 1.0 H GFR Calculation Not Reportable Glucose 90 Calculated Osmolal ity 276 L Calcium 8.2 L Phosphorus Pending Magnesium 2.2 Total Bilirubin 0.8 AST 11 ALT 11 Alkaline Phosphata se 91 Total Protein 5.7 L Albumin 3.4 L Globulin 2.3 Addt'l Data from Hospital Stay: Laboratory Results WBC 7.0 10^3/uL (4.0- 10.0) 08/13/20 04:58 RBC 4.10 10^6/uL (4.1 -5.3) 08/13/20 04:58 Hgb 11.2 g/dL (11.5-1 5.3) L 08/13/20 04:58 Hct 36.2 % (37.0-47.0 ) L 08/13/20 04:58 MCV 88.3 fL (81-99) 08/13/20 04:58 MCH 27.3 pg (28.0-34. 0) L 08/13/20 04:58 MCHC 30.9 g/dL (30.0-3 6.0) 08/13/20 04:58 RDW 23.2 % (12.1-15.1 ) H 08/13/20 04:58 Plt Count 185 10^3/cmm (130 -400) 08/13/20 04:58 MPV 9.9 fL (7.4-10.4) 08/13/20 04:58 Neut % (Auto) 62.8 % 08/13/20 04:58 Lymph % (Auto) 23.8 % 08/13/20 04:58 [place] % (Auto) 10.3 % 08/13/20 04:58 Eos % (Auto) 2.0 % 08/13/20 04:58 Baso % (Auto) 0.7 % 08/13/20 04:58 Neut # (Auto) 4.38 10^3/uL (1.8 -7.7) 08/13/20 04:58 Lymph # (Auto) 1.7 10^3/uL (0.8- 4.8) 08/13/20 04:58 [place]ascade # (Auto) 0.7 10^3/uL (0.2- 0.9) 08/13/20 04:58 Eos # (Auto) 0.1 10^3/uL (0.0- 0.8) 08/13/20 04:58 Baso # (Auto) 0.1 10^3/uL (0.0- 0.1) 08/13/20 04:58 Nucleated RBC % (a uto) 0 % 08/13/20 04:58 Nucleated RBCs # 0.0 /100WBC 08/13/20 04:58 Sodium 133 mmol/L (136-1 45) L 08/14/20 03:06 Potassium 3.5 mmol/L (3.5-5 .1) 08/14/20 03:06 Chloride 97 mmol/L (98-107 ) L 08/14/20 03:06 Carbon Dioxide 29 mmol/L (22-29) 08/14/20 03:06 Anion Gap 10.5 (5-19) 08/14/20 03:06 BUN 13 mg/dL (8-23) 08/14/20 03:06 Creatinine 1.0 mg/dL (0.5-0. 9) H 08/14/20 03:06 GFR Calculation Not Reportable 08/14/20 03:06 Glucose 90 mg/dL (65-115) 08/14/20 03:06 Estimat Average Gl ucose 80 08/13/20 04:58 Hemoglobin A1c 4.4 % (4.0-6.0) 08/13/20 04:58 Calculated Osmolal ity 276 mOsm/kg (285- 295) L 08/14/20 03:06 Calcium 8.2 mg/dL (8.5-10 .5) L 08/14/20 03:06 Phosphorus 1.5 mg/dL (2.5-4. 5) L 08/14/20 03:06 Magnesium 2.2 mg/dL (1.7-2. 3) 08/14/20 03:06 Iron 26 ug/dL (37-145) L 08/12/20 17:42 TIBC 273 mcg/dl 08/12/20 17:42 % Saturation 9.5 % (20-50) L 08/12/20 17:42 Unsat Iron Binding 247 ug/dL (112-34 7) 08/12/20 17:42 Ferritin 640 ng/mL (15-150 ) H 08/13/20 04:58 Total Bilirubin 0.8 mg/dL (0.15-1 .2) 08/14/20 03:06 AST 11 U/L (0-32) 08/14/20 03:06 ALT 11 U/L (0-33) 08/14/20 03:06 Alkaline Phosphata se 91 IU/L (35-105) 08/14/20 03:06 Creatine Kinase 31 U/L (26-192) 08/12/20 15:02 Troponin T Baselin e 41 ng/L (0-10) H 08/12/20 15:02 Troponin T 120 Min jeet 42.45 ng/L (0-10) H 08/12/20 17:42 Delta Troponin T 1.45 ABS# (0-10) 08/12/20 17:42 Troponin T Hi Sens 6Hr 44.75 ng/L (0-10) H 08/12/20 22:48 Troponin T Hi Sens 6Hr Delta 3.75 ng/L (0-12) 08/12/20 22:48 NT-Pro-B Natriuret Pep 3124 pg/mL (0-450 ) H 08/12/20 15:02 Total Protein 5.7 g/dL (6.6-8.7 ) L 08/14/20 03:06 Albumin 3.4 g/dL (3.5-5.2 ) L 08/14/20 03:06 Globulin 2.3 g/dL (1.3-4.6 ) 08/14/20 03:06 Triglycerides 59 mg/dL (0-150) 08/13/20 04:58 Cholesterol 105 mg/dL (0-200) 08/13/20 04:58 LDL Cholesterol, C alc 33 mg/dL (50-129) L 08/13/20 04:58 Total VLDL Cholest kb 12 mg/dL (0-30) 08/13/20 04:58 HDL Cholesterol 60 mg/dL (60-100) 08/13/20 04:58 Cholesterol/HDL Ra tanvir 1.75 mg/dL (0.0-4 .40) 08/13/20 04:58 Vitamin B12 444 pg/mL (232-12 45) 08/12/20 17:42 Folate 12.2 ng/mL (4.8-3 7.3) 08/12/20 15:02 Procalcitonin 0.05 ng/mL (0-0.5 ) 08/12/20 17:42 TSH 3.43 uIU/mL (0.27 -4.20) 08/12/20 15:02 Urine Color Yellow (Yellow) 08/12/20 15:41 Urine Appearance Sl hazy (CLEAR) 08/12/20 15:41 Urine pH 6.5 (5-7) 08/12/20 15:41 Ur Specific Gravit y 1.010 (1.005-1.0 30) 08/12/20 15:41 Urine Protein Neg (Negative) 08/12/20 15:41 Urine Glucose (UA) Norm (Normal) 08/12/20 15:41 Urine Ketones Negative (Negati ve) 08/12/20 15:41 Urine Blood 2+ (Negative) H 08/12/20 15:41 Urine Nitrate Negative (Negati ve) 08/12/20 15:41 Urine Bilirubin Neg (Negative) 08/12/20 15:41 Urine Urobilinogen Norm mg/dL (Negat brit) 08/12/20 15:41 Ur Leukocyte Meenu ase 1+ (Negative) H 08/12/20 15:41 Urine RBC 5-10 /hpf (0-2) H 08/12/20 15:41 Urine WBC 10-15 /hpf (0-5) H 08/12/20 15:41 Ur Squamous Epith Cells 0-4 /hpf (0-5) H 08/12/20 15:41 Amorphous Sediment Not Reportable 08/12/20 15:41 Urine Bacteria Trace /hpf (NONE) 08/12/20 15:41 Ur Random Sodium 124 mmol/L 08/12/20 19:33 Ur Random Potassiu m 25 mmol/L 08/12/20 19:33 Ur Random Chloride 129 mmol/L 08/12/20 19:33 Digoxin 0.4 ng/mL (0.6-1. 2) L 08/12/20 15:02 Impressions Chest X-Ray 08/12/20 14:56 IMPRESSION: No acute findings. ECHO: CONCLUSIONS 1-Normal left ventricular cavity size. Moderately decreased left ventricular systolic function. Left ventricular ejection fraction is estimated at 40 %. There appeared to be Mid to distal anterior apical akinesis suggestive of ischemic heart disease.Grade II/IV diastolic dysfunction, moderately elevated filling pressures. 2-No significant valve abnormalities. 3-There is no pericardial effusion. 4-Pulmonary artery systolic pressure is within normal limits. 5-Right atrial pressure is around 5 mm of mercury. 6-No significant change since the prior echocardiogram study of 12/10/2018. Kevin Allen MD (Electronically Signed) Final Date: 13 August 2020 14:48 Vitals: Last Vital Signs Temp 98.3 F 08/14/20 08:00 Pulse 66 08/14/20 08:00 Resp 19 H 08/14/20 08:00 BP 136/69 08/14/20 08:16 Pulse Ox 96 08/14/20 08:00 Discharge Plan Discharge Patient Disposition: Home Condition: Stable Prescriptions: New losartan 50 mg Tablet 50 mg PO BID Qty: 60 RF: 0 furosemide 40 mg Tablet 40 mg PO DAILY@0800 Qty: 30 RF: 0 atorvastatin 40 mg Tablet 20 mg PO DAILY@20 Qty: 30 RF: 0 carvedilol 6.25 mg Tablet 6.25 mg PO BID@08,20 Qty: 60 RF: 0 Pacerone 200 mg Tablet 200 mg PO DAILY Qty: 30 RF: 0 isosorbide mononitrate 30 mg Tablet Extended Release 24 Hr 15 mg PO DAILY Qty: 30 RF: 0 Vitamin B-12 1,000 mcg Tablet 1,000 mcg PO DAILY Qty: 30 RF: 0 aspirin 81 mg Tablet,Delayed Release (Dr/Ec) 81 mg PO DAILY@08 Qty: 30 RF: 0 pantoprazole 40 mg Tablet,Delayed Release (Dr/Ec) 40 mg PO DAILY@08 Qty: 30 RF: 0 Xarelto 10 mg Tablet 15 mg PO 1730 Qty: 45 RF: 0 potassium chloride 20 mEq tablet extended release 20 meq PO DAILY Qty: 30 RF: 0 Discontinued carvedilol 6.25 mg Tablet 6.25 mg PO BID@08,20 RF: 0 amiodarone 200 mg Tablet See Rx Instructions .ROUTE .COMPLEX RF: 0 cyanocobalamin (vitamin B-12) [Vitamin B-12] 1,000 mcg Tablet 1,000 mcg PO DAILY RF: 0 aspirin [Aspir-81] 81 mg Tablet,Delayed Release (Dr/Ec) 162 mg PO DAILY@08 RF: 0 pantoprazole [Protonix] 40 mg Tablet,Delayed Release (Dr/Ec) 40 mg PO DAILY@08 RF: 0 atorvastatin 20 mg tablet 20 mg PO DAILY@20 RF: 0 losartan-hydrochlorothiazide 100-12.5 mg tablet 0.5 tab PO BID@08,20 RF: 0 Discharge Orders: Discharge Order (Routine); Ordered 08/14/20 Ordered By: Nicolas Murphy Other Ambulatory Orders: [place] cardiac event monitor (Routine) Timeframe: 1 Day Facility: [facility] - Location: Cardiac Diagnostic Laboratory Ordered By: Nicolas Murphy Referrals: Betty Abreu MD [Primary Care Provider] - 7-10 days (Please follow-up with Betty Abreu on August 21 at 10:30A.M. If you have any questions or need to reschedule. Please call ) Sylvia Pacheco MD [Physician] - 7-10 days (Please keep you appointment with Dr. Pacheco at the [facility] on FridayAugust 23 at 8:45a.m. If you have any questions or need to reschedule. Please call ) Discharge Diet: Cardiac Discharge Activity: Resume usual activity Patient Instructions: Furosemide (By mouth), Potassium Chloride (By mouth), Aspirin (By mouth), Amiodarone (By mouth), Losartan (By mouth), Isosorbide Mononitrate (By mouth), Atorvastatin (By mouth), Carvedilol (By mouth), Pantoprazole (By mouth), Rivaroxaban (By mouth), Coronary Artery Disease (DC), Hypertension (DC), Anemia (DC), Hyperlipidemia (DC), CHF Stoplight Activity Restrictions/Additional Instructions: Please follow-up with your primary care provider within next 7 days for repeat CBC and BMP along with magnesium. Plan to keep potassium around 4 and magnesium around 2.5. Event monitor has been set up for you. Please follow-up with cardiology within next 1 week. Discharge Attestations Time Spent in Discharge Care*: greater than 30 min Specific Discharge Activities: educating patient, educating and/or supporting family/caregiver, discussing with pcp/other providers, discussing with community case manager/social workers/dc planners, documenting/other paperwork and evaluating patient/reviewing data Status at Discharge: Cognitive status at discharge: cognitively intact , Behavioral status at discharge: cooperative , Functional status at discharge: independent ambulation Overall status at discharge: patient is back to base line Quality Metrics Clinical Quality Measures During this hospital stay, did patient experience: None Coding Level of Care Code Acute Chg FW DC note Diagnoses SOB (shortness of breath) R06.02 CHF (congestive heart failure) I50.9 Atrial flutter I48.92 Atrial flutter type: unspecified CAD (coronary artery disease) I25.10 Associated angina: without angina Coronary Disease-Associated Artery/Lesion type: [place] artery [place] vs. transplanted heart: [place] heart NSVT (nonsustained ventricular tachycardia) I47.2 Anemia D64.9 Hyperlipidemia E78.2 Hyperlipidemia type: mixed hyperlipidemia HTN (hypertension) I10 Ischemic cardiomyopathy I25.5
[2020-08-14 09:15] LABS: Phosphorus 1.5 mg/dL (2.5-4.5)
[2020-08-14 10:45] VITALS: BP 136/69; PULSE 66; RESP 19; TEMP 36.8; O2SAT 96
== END 2020-08-14 12:07 | disposition home or self-care (01) | DRG 292 ==
LOC: ER 15:20 → CSU 17:22
PROVIDERS: Admitting Provider Student in an Organized Health Care Education/Training Program; Emergency Provider Family Medicine; PCP Family Medicine; Visit Provider Student in an Organized Health Care Education/Training Program
DX: I11.0 Hypertensive heart disease with heart failure (principal); I47.2 Ventricular tachycardia; E87.1 Hypo-osmolality and hyponatremia; I50.33 Acute on chronic diastolic (congestive) heart failure; E78.2 Mixed hyperlipidemia; C26.0 Malignant neoplasm of intestinal tract, part unspecified; I48.91 Unspecified atrial fibrillation; I25.10 Atherosclerotic heart disease of native coronary artery without angina pectoris; Z95.5 Presence of coronary angioplasty implant and graft; Z85.3 Personal history of malignant neoplasm of breast; Z90.10 Acquired absence of unspecified breast and nipple; I44.7 Left bundle-branch block, unspecified; D64.9 Anemia, unspecified; I34.0 Nonrheumatic mitral (valve) insufficiency; I25.5 Ischemic cardiomyopathy; Z79.82 Long term (current) use of aspirin
CPT/HCPCS: 36415; 71045; 80053; 80061; 80162; 81001; 82436; 82550; 82607; 82728; 82746; 83036; 83540; 83550; 83735; 83880; 84100; 84133; 84145; 84300; 84443; 84484; 85025; 87086; 87449; 93005; 93306; 96372; 96374; 99285; J1650; J1940; J3475

== ENCOUNTER 2021-03-23 10:57 | Inpatient (IN) | payer MEDICARE, OTHER, SELFPAY ==
[2021-03-23] VITALS (10 sets, daily range): BP systolic 125–136; BP diastolic 61–82; PULSE 56–63; RESP 16–18; TEMP 36.8; O2SAT 95–100; BMI 22.3
--- NOTE | 2021-03-23 11:51 | ECG_ITS ---
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 Measurements Intervals [place] Rate: 55 P: 71 CO: 220 QRS: -44 QRSD: 159 T: 87 QT: 501 QTc: 482 Interpretive Statements SINUS BRADYCARDIA WITH FIRST DEGREE AV BLOCK LEFT AXIS DEVIATION [QRS AXIS < -30] INTRAVENTRICULAR CONDUCTION DELAY [130+ ms QRS DURATION] Compared to ECG 03/23/2021 17:20:39 First degree AV block now present Left-axis deviation now present Myocardial infarct finding no longer present Electronically Signed On 03-25-2021 13:18:57 NEIGHBORHOOD AIDE by Blake Griffin M.D. [id number]
--- NOTE | 2021-03-23 11:52 | PM.HP ---
Providers/Chief Complaint Admitting Physician: Nicolas Murphy MD Primary Care Provider: Betty Abreu MD Chief Complaint: ACUTE PULMONARY EDEMA History of Present Illness Nika Abreu is a very pleasant 86 year old female with past medical history of hypertension, hyperlipidemia, atrial fibrillation, CAD post PCI to LCx, LAD?dissection not amenable to PCI on medical management, breast cancer postmastectomy, systolic and diastolic congestive heart failure who was transferred today from [facility]. As per the history patient was at her baseline health till today morning when she woke up. 30 minutes after waking up patient started experiencing mild difficulty in breathing along with palpitations and tachypnea. She checked her saturations at home which showed oxygen saturation in high 80s and heart rate in high 90s to low 100s. Patient denies any other symptoms including chest pain, dizziness, nausea, vomiting. She denies any other symptoms of dysuria, diarrhea. She states she might have missed her medications last night. She also states usually her body weight is running around 133 pounds daily except today when it was 134.5 pounds on her home body weight scale. As per patient her medications have remained mostly stable other than decreasing dose of carvedilol around 2 months ago. At [facility] patient was given 80 mg of IV Lasix, 5 mg of IV Lopressor and sublingual nitrate. Patient had a urine output of around 1 L at outside hospital. Examination today patient is comfortable sitting in bed, denying any active symptoms on 2 L oxygen supplementation saturating 98 to 99% with heart rate of 50 to 60 bpm, normal sinus rhythm. Review of Systems General: Reports: 10 or more systems reviewed and unremarkable except in HPI and below Const: Denies: fever(s), chills, body aches, change in appetite, change in weight, malaise, night sweats, diaphoresis, change in sleep pattern, daytime sleepiness or snoring Eyes: Denies: change in vision, blurry vision, photophobia, eye discomfort or eye discharge ENMT: Denies: throat pain, enlarged tonsils, hoarseness, mouth pain, oral sores, dry mouth, tinnitus, nasal congestion or post nasal drip Card: Denies: chest pain, palpitations, irregular heart rhythm, edema, swelling of feet/ankles, lightheadedness, syncope, pre-syncope, dyspnea on exertion, orthopnea, leg pain with exertion or acrocyanosis Resp: Denies: dyspnea, productive cough, non-productive cough, wheezing, stridor, pain on inspiration, change in phlegm color, hemoptysis or chest congestion GI: Denies: abdominal pain, nausea, vomiting, hematemesis, coffee ground emesis, dysphagia, heartburn, diarrhea, constipation, bloating, GI cramping, change in bowel habits, pain on defecation, hematochezia or melena : Denies: flank pain, dysuria, urinary frequency, urinary urgency, urinary hesitancy, nocturia or hematuria Musc: Denies: neck pain, back pain, extremity pain, joint pain, joint swelling, joint redness, joint stiffness or limited range of motion Neuro: Denies: headache(s), numbness in extremities, weakness in extremities, sensory changes, lack of coordination, difficulty walking, frequent falls, dizziness, vertigo, confusion, Slurred speech present, difficulty communicating thoughts or seizure-like activity Psych: Denies: anxiety, depression, mood swings, panic attacks, hopelessness or irritability Endo: Denies: polyuria, polydipsia, tired all the time, cold intolerance, excessive sweating, flushing or heat intolerance Kole/Lymph: Denies: easy bruising or easy bleeding All/Imm: Denies: tongue swelling, facial swelling or acute wheezing Medications/Allergies Home Medications Medication Instructions Recorded Confirmed Last Taken Type amiodarone [Pacerone] 200 mg PO DAILY #30 tab 08/14/20 03/23/21 03/23/21 06:00 Rx aspirin 81 mg PO DAILY@08 #30 tab 08/14/20 03/23/21 03/23/21 06:00 Rx cyanocobalamin (vitamin B-12) 1,000 mcg PO DAILY #30 tab 08/14/20 03/23/21 Unknown Rx [Vitamin B-12] furosemide 40 mg PO DAILY@0800 #30 tab 08/14/20 03/23/21 Unknown Rx potassium chloride 20 meq PO DAILY #30 tab 08/14/20 03/23/21 Unknown Rx isosorbide mononitrate 30 mg 30 mg PO BID tab 10/25/20 03/23/21 Unknown History tablet,extended release 24 hr nitroglycerin 0.4 mg sublingual 0.4 mg SUBLINGUAL Q5M PRN #30 tab 10/25/20 03/23/21 Unknown Rx tablet pantoprazole 20 mg tablet,delayed 20 mg PO DAILY 10/25/20 03/23/21 Unknown History release ranolazine 500 mg tablet,extended 500 mg PO BID #180 tab 10/25/20 03/23/21 Unknown Rx release,12 hr rivaroxaban 15 mg tablet 15 mg PO DAILY 10/25/20 03/23/21 Unknown History spironolactone 25 mg tablet 12.5 mg PO DAILY #90 tab 10/25/20 03/23/21 Unknown Rx albuterol sulfate 2 puff INHALATION QID PRN 03/23/21 03/23/21 Unknown History atorvastatin 20 mg PO DAILY 03/23/21 03/23/21 03/23/21 06:00 History carvedilol 3.125 mg PO BID@08,20 MDD see 03/23/21 03/23/21 Unknown History pharmacy comment docusate sodium 100 mg PO DAILY PRN 03/23/21 03/23/21 Unknown History famotidine 20 mg PO BID 03/23/21 03/23/21 Unknown History losartan 25 mg PO BID MDD see pharmacy 03/23/21 03/23/21 Unknown History comment Allergies Allergy/AdvReac Type Severity Reaction Status Date / Time Penicillins Allergy Unknown Verified 10/25/20 10:38 PFSH Acute PFSH: Medical History (Updated 03/23/21 @ 13:18 by Nicolas Murphy MD) Anemia Atrial flutter Breast cancer CAD (coronary artery disease) Dissection of coronary artery HTN (hypertension) Hyperlipidemia Ischemic cardiomyopathy NSVT (nonsustained ventricular tachycardia) Surgical History H/O mastectomy Hx of colonoscopy with polypectomy S/P right coronary artery (RCA) stent placement Status post insertion of drug-eluting stent into left anterior descending (LAD) artery for coronary artery disease Family History Mother Alzheimer disease Father Stroke Atrial fibrillation Other CAD (coronary artery disease) Hyperlipidemia Hypertension Social History Smoking and tobacco status: never smoked Alcohol intake: never Physical Exam Narrative: EXAM NARRATIVE: General: No acute distress, AO x3 HEENT: PERRLA, pupils bilaterally equal and reactive Chest: Normal vesicular breath sounds, no added sounds, equal good air entry bilaterally CVS: S1-S2 regular, no murmurs, no tachycardia, no gallops, no rubs Abdomen: Soft, nontender, no organomegaly, bowel sounds present Neuro: No focal deficits, no facial deformity, AO x3, power 5/5 in all limbs Data Other data: lab work done at OSH Hb- 13.6 WBC- 8.3 Plt-300 INR-1.2 BUN-17 Creat-1.1 Na-137 K-3.8 Bili-0.7 Mag-2.0 trop- 0.053 Lac-1.6 A&P Assessment and plan (1) Hypoxia: Status: Acute (2) Pulmonary edema: Status: Acute (3) Atrial flutter: Status: Acute Qualifiers: Atrial flutter type: unspecified Qualified Code(s): I48.92 - Unspecified atrial flutter (4) CHF (congestive heart failure): Status: Acute (5) Ischemic cardiomyopathy: Status: Acute Additional A&P Information Symptoms today morning most likely secondary to acute pulmonary edema most likely secondary to paroxysmal A. fib but cannot rule out mild hypertensive urgency versus non-STEMI. Currently euvolemic Outside blood work appreciated. Check troponin cycle. Wean off oxygen supplementation keeping saturation over 92%. Stop Xarelto, start on full dose Lovenox. Continue other home medications including aspirin, statin, beta-ermias with carvedilol 3.125 mg twice daily, isosorbide dinitrate 30 twice daily, ranolazine 500 mg twice daily. Paroxysmal atrial fibrillation: Currently in sinus rhythm. Continue to monitor. Telemetry. Takes Xarelto at home. Currently on full dose Lovenox. Congestive heart failure: History of ischemic cardiomyopathy: Last echocardiogram in July showed an EF of 40% with grade 2 diastolic dysfunction. Mixed diastolic and systolic congestive heart failure. Lasix as needed. Currently euvolemic. Check proBNP. Outside chest x-ray appreciated. Hypertension: Goal blood pressure less than 140/90 mmHg. Blood pressure mildly elevated currently. For now continue with home dose of losartan, Coreg, Imdur. Will uptitrate medications as per blood pressure charting. Cardiac diet. Protonix for PUD prophylaxis. Full dose Lovenox will help with DVT prophylaxis. Attestations Medical Necessity Statement*: Admission for more than 2 midnights for management of acute pulmonary edema in setting of history of systolic and diastolic congestive heart failure, possible non-ST elevation ND, paroxysmal A. fib Time Spent in Patient Care: Greater than 35 minutes (>than 50% of time spent in counselling and/or direct pt care on unit). Coding Level of Care Code Acute Head Turning Machine Operator for Kolby Alvarez Diagnoses Hypoxia R09.02 Pulmonary edema J81.1 Atrial flutter I48.92 Atrial flutter type: unspecified CHF (congestive heart failure) I50.9 Ischemic cardiomyopathy I25.5
[2021-03-23 13:06] LABS: NT Pro B Type Natriuretic Pept 2706 pg/mL (0-450)
[2021-03-23 13:08] LABS: Troponin(5th) Baseline 114 ng/L (0-10)
[2021-03-23 13:36] LABS: Add Urine Microscopic? NO; Charge for UA Resulting for Rev
[2021-03-23 13:45] LABS: Bilirubin Urine Neg (Negative); Blood Urine Neg (Negative); Glucose Urine UA Norm (Normal); Ketones Urine Negative (Negative); Leukocyte Esterase Urine Negative (Negative); Nitrate Urine Negative (Negative); Protein Urine Neg (Negative); Specific Gravity, Urine 1.015 (1.005-1.030); Urine Appearance Clear (CLEAR); Urine Color Colorless (Yellow); Urobilinogen Urine Norm (Negative); pH Urine 7 (5-7)
--- NOTE | 2021-03-23 13:51 | ECG_ITS ---
[facility] Test Date: 2021-03-23 Pat Name: Nika Abreu Department: Room: 105 Gender: Female Evaluation Engineer: : 1935 Requested By: Nicolas Murphy Order Number: [id number] Jackie MD: Blake Griffin M.D. Measurements Intervals [place] Rate: 62 P: 74 W[place]: 223 QRS: -48 QRSD: 171 T: 87 QT: 506 QTc: 516 Interpretive Statements SINUS RHYTHM WITH FIRST DEGREE AV BLOCK LEFT AXIS DEVIATION [QRS AXIS < -30] POSSIBLE RIGHT VENTRICULAR CONDUCTION DELAY [RSR (QR) IN V1/V2] LEFT BUNDLE BRANCH BLOCK [120+ ms QRS DURATION, 80+ ms Q/S IN V1/V2, 85+ ms R IN I/aVL/V5/V6] Compared to ECG 08/14/2020 08:51:41 Left-axis deviation now present Left bundle-branch block now present Sinus bradycardia no longer present Myocardial infarct finding no longer present Electronically Signed On 03-26-2021 17:32:04 STAFF NURSE by Blake Griffin M.D. [id number]
[2021-03-23] MEDS: pantoprazole DR 40 mg Tablet PO (15:02)
[2021-03-23] MEDS: potassium chloride ER 20 mEq Tablet PO (15:40)
--- NOTE | 2021-03-23 17:51 | ECG_ITS ---
[facility] Test Date: 2021-03-23 Pat Name: Nika Abreu Department: Room: 105 Gender: Female Simulation Analyst: : 1935 Requested By: Nicolas Murphy Order Number: [id number] Jackie MD: Blake Griffin M.D. Measurements Intervals [place] Rate: 59 P: 61 IN: 202 QRS: -47 QRSD: 174 T: 109 QT: 497 QTc: 494 Interpretive Statements SINUS BRADYCARDIA INTRAVENTRICULAR CONDUCTION DELAY [130+ ms QRS DURATION] INFERIOR MYOCARDIAL INFARCTION , OF INDETERMINATE AGE [40+ ms Q WAVE AND/OR ST/T ABNORMALITY IN II/aVF] Compared to ECG 03/23/2021 13:11:37 Intraventricular conduction delay now present Myocardial infarct finding now present Sinus rhythm no longer present First degree AV block no longer present Left-axis deviation no longer present Left bundle-branch block no longer present Electronically Signed On 03-26-2021 17:31:20 PHYSICIAN RELATIONS MANAGER by Blake Griffin M.D. [id number]
[2021-03-23 19:00] LABS: Troponin 5 6HR 94.81 ng/L (0-10)
[2021-03-23] MEDS: losartan 50 mg Tablet 25 MG PO (19:51)
[2021-03-23] MEDS: rivaroxaban 10 mg Tablet 15 MG PO (19:52)
[2021-03-23] MEDS: isosorbide mononitrate ER 30 mg Tablet PO (19:53)
--- NOTE | 2021-03-23 20:11 | PC.NURSE ---
pt direct admitted into room 105 via ems,from [facility].report received.pt is alert and oriented x 4.sr on monitor.o2 on at 2l nc.no respiratory distress noted.o2 sats 97-99%.pt recieved 80 mg lasix iv push at [facility] er...voided approx 1000cc yarn dyer. bp stable.oriented to room environment.instructed to notify staff for any sob...or for any concerns at all.pt verb understanding of instructions.
--- NOTE | 2021-03-23 20:27 | PC.NURSE ---
able to wean o2 to off.no c/o sob.no kimbrough noted
[2021-03-23] MEDS: carvedilol 3.125 mg Tablet PO (20:56)
[2021-03-24 00:04] VITALS: BP 119/58; PULSE 52; O2SAT 97
[2021-03-24 03:18] VITALS: BP 145/62; PULSE 51; RESP 16; TEMP 36.6; O2SAT 96
[2021-03-24 04:57] LABS: Basophils # 0.1 10^3/uL (0.0-0.1); Basophils % 0.9 %; Eosinophils # 0.3 10^3/uL (0.0-0.8); Eosinophils % 5.7 %; Hematocrit 36.6 % (37.0-47.0); Hemoglobin 11.7 g/dL (11.5-15.3); Lymphocytes # 1.7 10^3/uL (0.8-4.8); Lymphocytes % 31.9 %; Mean Corpuscular Hemoglobin 30.9 pg (28.0-34.0); Mean Corpuscular Volume 96.6 fl (81-99); Mean Platelet Volume 9.7 fL (7.4-10.4); Monocytes # 0.5 10^3/uL (0.2-0.9); Monocytes % 9.2 %; Neutrophils # 2.82 10^3/uL (1.8-7.7); Neutrophils % 52.1 %; Nucleated Red Blood Cells % 0 %; Platelet Count 225 10^3/cmm (130-400); Red Blood Count 3.79 10^6/uL (4.1-5.3); Red Cell Distribution Width 13.9 % (12.1-15.1); White Blood Count 5.4 10^3/uL (4.0-10.0)
[2021-03-24 05:15] VITALS: PULSE 56
[2021-03-24 05:21] LABS: Alanine Aminotransferase 13 U/L (0-33); Albumin Level 3.3 g/dL (3.5-5.2); Alkaline Phosphatase 97 IU/L (35-105); Aspartate Amino Transferase 17 U/L (0-32); Blood Urea Nitrogen 19 mg/dL (8-23); Calcium 8.6 mg/dL (8.5-10.5); Carbon Dioxide 28 mmol/L (22-29); Chloride 101 mmol/L (98-107); Globulin 2.2 g/dL (1.3-4.6); Glucose 98 mg/dL (65-115); Osmolality Calculated 290 mOsm/kg (285-295); Phosphorus 3.5 mg/dL (2.5-4.5); Sodium 139 mmol/L (136-145); Total Bilirubin 0.5 mg/dL (0.15-1.2); Total Protein 5.5 g/dL (6.6-8.7)
--- NOTE | 2021-03-24 05:41 | PC.NURSE ---
SHIFT SUMMARY Has had a good night and rested well. Pleasant. Denies pain or discomfort. Denies SOB and reports an occ dry cough. Up to BSC with assist. Some generalized weakness. Monitor showing SB with HR in 50's.
[2021-03-24 06:01] LABS: Anion Gap 13.7 (5-19); Potassium 3.7 mmol/L (3.5-5.1)
[2021-03-24 07:58] VITALS: BP 134/65; PULSE 58; RESP 17; TEMP 37; O2SAT 96
[2021-03-24] MEDS: rivaroxaban 10 mg Tablet 15 MG PO (08:19)
[2021-03-24] MEDS: pantoprazole DR 40 mg Tablet PO (08:19)
[2021-03-24] MEDS: atorvastatin 40 mg Tablet 20 MG PO (08:19)
[2021-03-24 08:20] VITALS: BP 134/65
[2021-03-24] MEDS: isosorbide mononitrate ER 30 mg Tablet PO (08:20)
[2021-03-24] MEDS: carvedilol 3.125 mg Tablet PO (08:20)
[2021-03-24] MEDS: cyanocobalamin 1,000 mcg Tablet 1000 MCG PO (08:20)
[2021-03-24] MEDS: amiodarone 200 mg Tablet PO (08:20)
[2021-03-24] MEDS: potassium chloride ER 20 mEq Tablet PO (08:20)
[2021-03-24] MEDS: aspirin 81 mg EC Tablet PO (08:20)
[2021-03-24] MEDS: losartan 50 mg Tablet 25 MG PO (08:20)
--- NOTE | 2021-03-24 10:24 | P.DS_ITS ---
Discharge Providers Date of Admission: 03/23/21 10:57 Date of Discharge: March 24, 2021 Attending Provider at Admission: Nicolas Murphy MD Attending Provider at Discharge: Nicolas Murphy MD Primary Care Provider: Betty Abreu MD Diagnoses at Discharge Discharge Diagnosis (1) Hypoxia: Status: Acute (2) Pulmonary edema: Status: Acute (3) Atrial flutter: Status: Acute Qualifiers: Atrial flutter type: unspecified Qualified Code(s): I48.92 - Unspecified atrial flutter (4) CHF (congestive heart failure): Status: Acute (5) Ischemic cardiomyopathy: Status: Acute Reason for Visit Reason for Visit: ACUTE PULMONARY EDEMA Hospital Course Hospital Course Nika Abreu is a very pleasant 86 year old female with past medical history of hypertension, hyperlipidemia, atrial fibrillation, CAD post PCI to LCx, LAD?dissection not amenable to PCI on medical management, breast cancer postmastectomy, systolic and diastolic congestive heart failure who was transferred today from [facility]. As per the history patient was at her baseline health till today morning when she woke up. 30 minutes after waking up patient started experiencing mild difficulty in breathing along with palpitations and tachypnea. She checked her saturations at home which showed oxygen saturation in high 80s and heart rate in high 90s to low 100s. Patient denies any other symptoms including chest pain, dizziness, nausea, vomiting. She denies any other symptoms of dysuria, diarrhea. She states she might have missed her medications last night. She also states usually her body weight is running around 133 pounds daily except today when it was 134.5 pounds on her home body weight scale. As per patient her medications have remained mostly stable other than decreasing dose of carvedilol around 2 months ago. At [facility] patient was given 80 mg of IV Lasix, 5 mg of IV Lopressor and sublingual nitrate. Patient had a urine output of around 1 L at outside hospital. Examination today patient is comfortable sitting in bed, denying any active symptoms on 2 L oxygen supplementation saturating 98 to 99% with heart rate of 50 to 60 bpm, normal sinus rhythm. Patient was admitted to the hospital. During hospitalization her heart rate her blood pressure remained stable. Her oxygen supplementation was weaned down. She has remained on room air for more than 12 hours. Hospitalization was otherwise unremarkable. She has been discharged in hemodynamically stable condition with advice to continue taking her medications as before and monitoring her blood pressure twice daily. She is also advised to increase her dose of Imdur to 45 mg every morning 40 mg every afternoon if her systolic blood pressures are more than 150 mmHg. She is advised to continue taking low-salt cardiac diet. To monitor her body weight daily Physical Exam Narrative: EXAM NARRATIVE: General: No acute distress, AO x3 HEENT: PERRLA, pupils bilaterally equal and reactive Chest: Normal vesicular breath sounds, no added sounds, equal good air entry bilaterally CVS: S1-S2 regular, no murmurs, no tachycardia, no gallops, no rubs Abdomen: Soft, nontender, no organomegaly, bowel sounds present Neuro: No focal deficits, no facial deformity, AO x3, power 5/5 in all limbs Discharge Data Data Completed and Pending: Labs from last 24 hours 03/24/21 03/24/21 03/23/21 04:27 04:27 18:32 WBC 5.4 RBC 3.79 L Hgb 11.7 Hct 36.6 L MCV 96.6 MCH 30.9 MCHC 32.0 RDW 13.9 Plt Count 225 MPV 9.7 Neut % (Auto) 52.1 Lymph % (Auto) 31.9 [place] % (Auto) 9.2 Eos % (Auto) 5.7 Baso % (Auto) 0.9 Neut # (Auto) 2.82 Lymph # (Auto) 1.7 [place] # (Auto) 0.5 Eos # (Auto) 0.3 Baso # (Auto) 0.1 Nucleated RBC % (a uto) 0 Nucleated RBCs # 0.0 Sodium 139 Potassium 3.7 Chloride 101 Carbon Dioxide 28 Anion Gap 13.7 BUN 19 Creatinine 1.1 H GFR Calculation Not Reportable Glucose 98 Calculated Osmolal ity 290 Calcium 8.6 Phosphorus 3.5 Magnesium 2.0 Total Bilirubin 0.5 AST 17 ALT 13 Alkaline Phosphata se 97 Troponin T Baselin e Troponin T Hi Sens 6Hr 94.81 H Troponin T Hi Sens 6Hr Delta -19.19 L NT-Pro-B Natriuret Pep Total Protein 5.5 L Albumin 3.3 L Globulin 2.2 Urine Color Urine Appearance Urine pH Ur Specific Gravit y Urine Protein Urine Glucose (UA) Urine Ketones Urine Blood Urine Nitrate Urine Bilirubin Urine Urobilinogen Ur Leukocyte Meenu ase 03/23/21 03/23/21 03/23/21 13:00 12:23 12:23 WBC RBC Hgb Hct MCV MCH MCHC RDW Plt Count MPV Neut % (Auto) Lymph % (Auto) [place] % (Auto) Eos % (Auto) Baso % (Auto) Neut # (Auto) Lymph # (Auto) [place] # (Auto) Eos # (Auto) Baso # (Auto) Nucleated RBC % (a uto) Nucleated RBCs # Sodium Potassium Chloride Carbon Dioxide Anion Gap BUN Creatinine GFR Calculation Glucose Calculated Osmolal ity Calcium Phosphorus Magnesium Total Bilirubin AST ALT Alkaline Phosphata se Troponin T Baselin e 114 H* Troponin T Hi Sens 6Hr Troponin T Hi Sens 6Hr Delta NT-Pro-B Natriuret Pep 2706 H Total Protein Albumin Globulin Urine Color Colorless Urine Appearance Clear Urine pH 7 Ur Specific Gravit y 1.015 Urine Protein Neg Urine Glucose (UA) Norm Urine Ketones Negative Urine Blood Neg Urine Nitrate Negative Urine Bilirubin Neg Urine Urobilinogen Norm Ur Leukocyte Meenu ase Negative Addt'l Data from Hospital Stay: Laboratory Results WBC 5.4 10^3/uL (4.0- 10.0) 03/24/21 04:27 RBC 3.79 10^6/uL (4.1 -5.3) L 03/24/21 04:27 Hgb 11.7 g/dL (11.5-1 5.3) 03/24/21 04:27 Hct 36.6 % (37.0-47.0 ) L 03/24/21 04:27 MCV 96.6 fl (81-99) 03/24/21 04:27 MCH 30.9 pg (28.0-34. 0) 03/24/21 04:27 MCHC 32.0 g/dL (30.0-3 6.0) 03/24/21 04:27 RDW 13.9 % (12.1-15.1 ) 03/24/21 04:27 Plt Count 225 10^3/cmm (130 -400) 03/24/21 04:27 MPV 9.7 fL (7.4-10.4) 03/24/21 04:27 Neut % (Auto) 52.1 % 03/24/21 04:27 Lymph % (Auto) 31.9 % 03/24/21 04:27 [place] % (Auto) 9.2 % 03/24/21 04:27 Eos % (Auto) 5.7 % 03/24/21 04:27 Baso % (Auto) 0.9 % 03/24/21 04:27 Neut # (Auto) 2.82 10^3/uL (1.8 -7.7) 03/24/21 04:27 Lymph # (Auto) 1.7 10^3/uL (0.8- 4.8) 03/24/21 04:27 [place] # (Auto) 0.5 10^3/uL (0.2- 0.9) 03/24/21 04:27 Eos # (Auto) 0.3 10^3/uL (0.0- 0.8) 03/24/21 04:27 Baso # (Auto) 0.1 10^3/uL (0.0- 0.1) 03/24/21 04:27 Nucleated RBC % (a uto) 0 % 03/24/21 04:27 Nucleated RBCs # 0.0 /100WBC 03/24/21 04:27 Sodium 139 mmol/L (136-1 45) 03/24/21 04:27 Potassium 3.7 mmol/L (3.5-5 .1) 03/24/21 04:27 Chloride 101 mmol/L (98-10 7) 03/24/21 04:27 Carbon Dioxide 28 mmol/L (22-29) 03/24/21 04:27 Anion Gap 13.7 (5-19) 03/24/21 04:27 BUN 19 mg/dL (8-23) 03/24/21 04:27 Creatinine 1.1 mg/dL (0.5-0. 9) H 03/24/21 04:27 GFR Calculation Not Reportable 03/24/21 04:27 Glucose 98 mg/dL (65-115) 03/24/21 04:27 Calculated Osmolal ity 290 mOsm/kg (285- 295) 03/24/21 04:27 Calcium 8.6 mg/dL (8.5-10 .5) 03/24/21 04:27 Phosphorus 3.5 mg/dL (2.5-4. 5) 03/24/21 04:27 Magnesium 2.0 mg/dL (1.7-2. 3) 03/24/21 04:27 Total Bilirubin 0.5 mg/dL (0.15-1 .2) 03/24/21 04:27 AST 17 U/L (0-32) 03/24/21 04:27 ALT 13 U/L (0-33) 03/24/21 04:27 Alkaline Phosphata se 97 IU/L (35-105) 03/24/21 04:27 Troponin T Baselin e 114 ng/L (0-10) H* 03/23/21 12:23 Troponin T Hi Sens 6Hr 94.81 ng/L (0-10) H 03/23/21 18:32 Troponin T Hi Sens 6Hr Delta -19.19 ng/L (0-12 ) L 03/23/21 18:32 NT-Pro-B Natriuret Pep 2706 pg/mL (0-450 ) H 03/23/21 12:23 Total Protein 5.5 g/dL (6.6-8.7 ) L 03/24/21 04:27 Albumin 3.3 g/dL (3.5-5.2 ) L 03/24/21 04:27 Globulin 2.2 g/dL (1.3-4.6 ) 03/24/21 04:27 Urine Color Colorless (Yello w) 03/23/21 13:00 Urine Appearance Clear (CLEAR) 03/23/21 13:00 Urine pH 7 (5-7) 03/23/21 13:00 Ur Specific Gravit y 1.015 (1.005-1.0 30) 03/23/21 13:00 Urine Protein Neg (Negative) 03/23/21 13:00 Urine Glucose (UA) Norm (Normal) 03/23/21 13:00 Urine Ketones Negative (Negati ve) 03/23/21 13:00 Urine Blood Neg (Negative) 03/23/21 13:00 Urine Nitrate Negative (Negati ve) 03/23/21 13:00 Urine Bilirubin Neg (Negative) 03/23/21 13:00 Urine Urobilinogen Norm mg/dL (Negat brit) 03/23/21 13:00 Ur Leukocyte Meenu ase Negative (Negati ve) 03/23/21 13:00 Vitals: Last Vital Signs Temp 98.6 F 03/24/21 07:58 Pulse 58 L 03/24/21 07:58 Resp 17 03/24/21 07:58 BP 134/65 03/24/21 08:20 Pulse Ox 96 03/24/21 07:58 Discharge Plan Discharge Patient Disposition: Home Condition: Stable Prescriptions: Continued isosorbide mononitrate 30 mg tablet extended release 24 hr 30 mg PO BID RF: 0 pantoprazole 20 mg tablet,delayed release (DR/EC) 20 mg PO DAILY RF: 0 Xarelto 15 mg tablet 15 mg PO DAILY RF: 0 nitroglycerin 0.4 mg tablet, sublingual 0.4 mg sublingual Q5M PRN (Reason: chest pain) Qty: 30 RF: 6 furosemide 40 mg Tablet 40 mg PO DAILY@0800 Qty: 30 RF: 0 amiodarone [Pacerone] 200 mg Tablet 200 mg PO DAILY Qty: 30 RF: 0 cyanocobalamin (vitamin B-12) [Vitamin B-12] 1,000 mcg Tablet 1,000 mcg PO DAILY Qty: 30 RF: 0 aspirin 81 mg Tablet,Delayed Release (Dr/Ec) 81 mg PO DAILY@08 Qty: 30 RF: 0 potassium chloride 20 mEq tablet extended release 20 meq PO DAILY Qty: 30 RF: 0 docusate sodium 100 mg Capsule 100 mg PO DAILY PRN (Reason: Constipation) RF: 0 albuterol sulfate 90 mcg/actuation Hfa Aerosol Inhaler 2 puff INHALATION QID PRN (Reason: Shortness Of Breath) RF: 0 losartan 50 mg tablet 25 mg PO BID MDD see pharmacy comment RF: 0 carvedilol 6.25 mg tablet 3.125 mg PO BID@08,20 MDD see pharmacy comment RF: 0 atorvastatin 40 mg tablet 20 mg PO DAILY RF: 0 Discontinued ranolazine 500 mg tablet extended release 12 hr 500 mg PO BID Qty: 180 RF: 2 famotidine 20 mg Tablet 20 mg PO BID RF: 0 Discharge Orders: Discharge Order (Routine); Ordered 03/24/21 Ordered By: Nicolas Murphy Referrals: Betty Abreu MD [Primary Care Provider] - 4-7 days Discharge Diet: Cardiac and Low Salt Discharge Activity: Resume usual activity and Increase activity as tolerated Patient Instructions: Opioid Safety Activity Restrictions/Additional Instructions: Please continue taking your medications as before. Please monitor your blood pressure twice daily and maintain a blood pressure diary. Goal blood pressure 120 to 140 mmHg systolic. If blood pressures are going higher than 150 can increase the dose of Imdur to 45 mg every morning, 30 mg every afternoon. Please follow-up with a primary care provider within next 3 to 4 days. Discharge Attestations Time Spent in Discharge Care*: greater than 30 min Specific Discharge Activities: educating patient, educating and/or supporting family/caregiver, discussing with casework manager/social workers/dc planners, documenting/other paperwork and evaluating patient/reviewing data Status at Discharge: Cognitive status at discharge: cognitively intact , Behavioral status at discharge: cooperative , Functional status at discharge: independent ambulation Overall status at discharge: patient is back to baseline Quality Metrics Clinical Quality Measures During this hospital stay, did patient experience: None Coding Level of Care Code Acute [facility] DC note Diagnoses Hypoxia R09.02 Pulmonary edema J81.1 Atrial flutter I48.92 Atrial flutter type: unspecified CHF (congestive heart failure) I50.9 Ischemic cardiomyopathy I25.5
[2021-03-24 10:37] VITALS: BP 134/65; PULSE 60; RESP 16; O2SAT 98
--- NOTE | 2021-03-24 11:36 | PC.NURSE ---
Discharge instructions provided to patient and family member. Patient has no questions or concerns. VS stable upon departure.
== END 2021-03-24 11:37 | disposition home or self-care (01) | DRG 309 ==
PROVIDERS: Admitting Provider Student in an Organized Health Care Education/Training Program; PCP Family Medicine; Visit Provider Student in an Organized Health Care Education/Training Program
DX: I48.0 Paroxysmal atrial fibrillation (principal); I50.42 Chronic combined systolic (congestive) and diastolic (congestive) heart failure; I11.0 Hypertensive heart disease with heart failure; I48.92 Unspecified atrial flutter; E78.5 Hyperlipidemia, unspecified; I25.10 Atherosclerotic heart disease of native coronary artery without angina pectoris; I25.5 Ischemic cardiomyopathy; R09.02 Hypoxemia; Z95.5 Presence of coronary angioplasty implant and graft; Z85.3 Personal history of malignant neoplasm of breast; Z90.10 Acquired absence of unspecified breast and nipple; Z79.82 Long term (current) use of aspirin; Z79.01 Long term (current) use of anticoagulants
CPT/HCPCS: 36415; 80053; 81003; 83735; 83880; 84100; 84484; 85025; 93005; 94664

== ENCOUNTER 2021-04-30 09:35 | Inpatient (IN) | payer MEDICARE, OTHER, SELFPAY ==
[2021-04-30] VITALS (25 sets, daily range): BP systolic 105–144; BP diastolic 49–101; PULSE 51–67; RESP 8–26; TEMP 36.8; O2SAT 96–100
--- NOTE | 2021-04-30 10:49 | USCV_ITS ---
Nika Abreu Age: 86 Gender: F : 1935 Exam Date: 04/30/2021 11:37 Ordering Phys: Nicolas Murphy MD Technologist: BARBARA Exam Location: [facility] [place] Indication: History of cardiac stenting, beginning in 2015. Evaluate for possible CHF. BP: 163 / 82 HR: 86 Rhythm: Sinus Technical Quality: Adequate MEASUREMENTS (Male / Female) Normal Values 2D ECHO LV Diastolic Diameter PLAX 4.8 cm 4.2 - 5.9 / 3.9 - 5.3 cm LV Systolic Diameter PLAX 3.5 cm IVS Diastolic Thickness 1.3 cm 0.6 - 1.0 / 0.6 - 0.9 cm IVS Systolic Thickness 1.4 cm LVPW Diastolic Thickness 1.1 cm 0.6 - 1.0 / 0.6 - 0.9 cm LVPW Systolic Thickness 1.7 cm LVOT Diameter 1.8 cm LV Ejection Fraction 2D Teich 51.5 % LV Ejection Fraction MOD 2C 60.7 % LV Ejection Fraction 2C AL 61.4 % LA Diameter 3.7 cm LA Width 3.2 cm LA Height 6.0 cm RA Width 2.7 cm RA Height 5.0 cm Aorta at Sinotubular Diameter 2.6 cm M-MODE Aortic Annulus Diameter 2.8 cm LA Ao Ratio MM 1.3 MV E Point Septal Separation 0.7 cm DOPPLER AV Peak Velocity 151.0 cm/s LVOT Peak Velocity 72.0 cm/s AV Area Cont Eq vti 1.2 cm squared AV Area Cont Eq pk 1.2 cm squared MV Peak Velocity 109.0 cm/s MV Area PHT 2.4 cm squared Mitral E to A Ratio 1.4 MV E' Velocity 48.5 cm/s Mitral E to MV E' Ratio 15.2 Mitral E to LV E' Lateral Ratio 13.4 Mitral E to LV E' Septal Ratio 17.6 TR Peak Velocity 269.8 cm/s TR Peak Gradient 29.1 mmHg TV Peak E Velocity 28.0 cm/s Right Atrial Pressure 5.0 mmHg Pulmonary Artery Systolic Pressu 34.1 mmHg PV Peak Velocity 100.0 cm/s FINDINGS Left Ventricle Normal left ventricular size. LV systolic function is mildly reduced with EF of 40-45%. Apical akinesis and apical anterior wall akinesis is seen. Grade 2 diastolic dysfunction Right Ventricle The right ventricle is normal in size and function. Right Atrium The right atrium is normal in size. Left Atrium The left atrium is enlarged Mitral Valve Mitral valve is thickened. No significant mitral regurgitation. There is atleast moderate mitral regurgitation. Aortic Valve Structurally normal aortic valve without significant sclerosis or stenosis. There is no aortic regurgitation. Tricuspid Valve Structurally normal tricuspid valve without significant stenosis. Mild tricuspid regurgitation. RVSP is 35-40mmHg. This is consistent with mild pulmonary hypertension Pulmonic Valve Grossly normal . Has mild pulmonic regurgitation Pericardium Normal pericardium without effusion. Aorta Normal ascending aorta dimension. CONCLUSIONS LV systolic function is mildly reduced with EF of 40-45% Grade 2 diastolic dysfunction Left atrial enlargement Atleast moderate mitral regurgitation. Recommend THOR to further assess the severity/etiology of the mitral regurgitation Mild tricuspid regurgitation. Mild pulmonary hypertension Mild pulmonic regurgitation Compared to prior echocardiogram from 08/13/2020, no significant changes are seen Blake Griffin MD (Electronically Signed) Final Date: 30 April 2021 13:56 S
--- NOTE | 2021-04-30 10:49 | CT_ITS ---
WS: [id number] CT CHEST TECHNIQUE: Noncontrast CT of the chest with coronal and sagittal reformatted images. CLINICAL INFORMATION: sob, chf, ??pna COMPARISON: CT chest abdomen pelvis July 04, 2020 DLP: 377.[address] scans at [facility] use at least one of these dose optimization techniques: automated e xposure control; mA and/or kV adjustment per patient size (includes targeted exams where dose is matc hed to clinical indication); or iterative reconstruction. FINDINGS: Diffuse hazy groundglass infiltrates in the perihilar regions and both upper lobes suspicious for vir al pneumonia specifically, COVID 19 Pneumonia. Some of this may be due to pulmonary edema. Small bila teral pleural effusions. Aortic calcification. Coronary calcification. No mediastinal or hilar lympha denopathy. Adrenal glands are normal. Vascular calcification. No axillary lymphadenopathy. Mild thoracic curve. CT/CT chest wo con [id number] IMPRESSION: 1. Diffuse hazy bilateral groundglass infiltrates more prominent in the perihi lar regions and upper lobe suspicious for viral pneumonia. Recommend correlatio n for Covid 19 pneumonia. Some of this may be due to pulmonary edema. 2. Small bilateral pleural effusions. 3. No focal consolidation. 4. Normal caliber thoracic aorta. Aortic coronary calcification. 5. No other acute findings.
--- NOTE | 2021-04-30 10:53 | PM.HP ---
Providers/Chief Complaint Admitting Physician: Nicolas Murphy MD Primary Care Provider: Betty Abreu MD Chief Complaint: DA History of Present Illness Nika Abreu is a very pleasant 86 year old female well-known to me from before with past medical history of hypertension, hyperlipidemia, atrial fibrillation, CAD post PCI to LCx, LAD?dissection not amenable to PCI on medical management, breast cancer postmastectomy, systolic and diastolic congestive heart failure who was transferred today from [facility]. As per patient she was at her baseline health till yesterday. She had a good day yesterday. Today morning when she woke up she felt central chest pressure along with difficulty in breathing which did not settle in an hour so she called the EMS. As per the patient she started having irritative cough since today morning. Denies any myalgia, fever, cough, headache, diarrhea, dizziness till today morning. Did have palpitations at home today morning along with the episode of difficulty in breathing. Also states her blood pressure today morning was high. Also states for last few days she has been having occasional episodes of epistaxis for which she has been taking her Xarelto on and off. She states her body weight at home has mostly remained stable. It was 134.5 few days ago and yesterday it was 133 pounds. States she really had a good day yesterday without having any symptoms. Has been vaccinated for COVID-19. Documented blood pressure at outside hospital 210 mmHg. While she was waiting for the EMS she took her oral home medications and to nebulizations of albuterol. On presentation to the ER at [facility] she was found to be mildly hypoxic so she was put on oxygen. Currently she is on oxygen mask 5 L saturating 99%. Blood work at outside hospital shows a creatinine of 1.5, potassium of 3.3, sodium of 140, hemoglobin of 16, no leukocytosis, negative COVID-19 antigen with chest x-ray reported as bilateral pulmonary infiltrates of pulmonary edema versus possible pneumonia. Review of Systems General: Reports: 10 or more systems reviewed and unremarkable except in HPI and below Const: Denies: fever(s), chills, body aches, change in appetite, change in weight, malaise, night sweats, diaphoresis, change in sleep pattern, daytime sleepiness or snoring Eyes: Denies: change in vision, blurry vision, photophobia, eye discomfort or eye discharge ENMT: Denies: throat pain, enlarged tonsils, hoarseness, mouth pain, oral sores, dry mouth, tinnitus, nasal congestion or post nasal drip Card: Denies: chest pain, palpitations, irregular heart rhythm, edema, swelling of feet/ankles, lightheadedness, syncope, pre-syncope, dyspnea on exertion, orthopnea, leg pain with exertion or acrocyanosis Resp: Denies: dyspnea, productive cough, non-productive cough, wheezing, stridor, pain on inspiration, change in phlegm color, hemoptysis or chest congestion GI: Denies: abdominal pain, nausea, vomiting, hematemesis, coffee ground emesis, dysphagia, heartburn, diarrhea, constipation, bloating, GI cramping, change in bowel habits, pain on defecation, hematochezia or melena : Denies: flank pain, dysuria, urinary frequency, urinary urgency, urinary hesitancy, nocturia or hematuria Musc: Denies: neck pain, back pain, extremity pain, joint pain, joint swelling, joint redness, joint stiffness or limited range of motion Neuro: Denies: headache(s), numbness in extremities, weakness in extremities, sensory changes, lack of coordination, difficulty walking, frequent falls, dizziness, vertigo, confusion, Slurred speech present, difficulty communicating thoughts or seizure-like activity Psych: Denies: anxiety, depression, mood swings, panic attacks, hopelessness or irritability Endo: Denies: polyuria, polydipsia, tired all the time, cold intolerance, excessive sweating, flushing or heat intolerance Kole/Lymph: Denies: easy bruising or easy bleeding All/Imm: Denies: tongue swelling, facial swelling or acute wheezing Medications/Allergies Home Medications Medication Instructions Recorded Confirmed Last Taken Type amiodarone [Pacerone] 200 mg PO DAILY #30 tab 08/14/20 03/23/21 03/23/21 06:00 Rx aspirin 81 mg PO DAILY@08 #30 tab 08/14/20 03/23/21 03/23/21 06:00 Rx cyanocobalamin (vitamin B-12) 1,000 mcg PO DAILY #30 tab 08/14/20 03/23/21 Unknown Rx [Vitamin B-12] furosemide 40 mg PO DAILY@0800 #30 tab 08/14/20 03/23/21 03/23/21 06:00 Rx potassium chloride 20 meq PO DAILY #30 tab 08/14/20 03/23/21 Unknown Rx isosorbide mononitrate 30 mg 30 mg PO BID tab 10/25/20 03/23/21 Unknown History tablet,extended release 24 hr nitroglycerin 0.4 mg sublingual 0.4 mg SUBLINGUAL Q5M PRN #30 tab 10/25/20 03/23/21 Unknown Rx tablet pantoprazole 20 mg tablet,delayed 20 mg PO DAILY 10/25/20 03/23/21 Unknown History release rivaroxaban 15 mg tablet 15 mg PO DAILY 10/25/20 03/23/21 Unknown History albuterol sulfate 2 puff INHALATION QID PRN 03/23/21 03/23/21 Unknown History atorvastatin 20 mg PO DAILY 03/23/21 03/23/21 03/23/21 06:00 History carvedilol 3.125 mg PO BID@08,20 MDD see 03/23/21 03/23/21 03/23/21 06:00 History pharmacy comment docusate sodium 100 mg PO DAILY PRN 03/23/21 03/23/21 Unknown History losartan 25 mg PO BID MDD see pharmacy 03/23/21 03/23/21 Unknown History comment Allergies Allergy/AdvReac Type Severity Reaction Status Date / Time Penicillins Allergy Unknown Verified 10/25/20 10:38 PFSH Acute PFSH: Medical History (Updated 04/30/21 @ 10:55 by Nicolas Murphy MD) Anemia Atrial flutter Breast cancer CAD (coronary artery disease) CHF (congestive heart failure) Dissection of coronary artery HTN (hypertension) Hyperlipidemia Ischemic cardiomyopathy NSVT (nonsustained ventricular tachycardia) Surgical History H/O mastectomy Hx of colonoscopy with polypectomy S/P right coronary artery (RCA) stent placement Status post insertion of drug-eluting stent into left anterior descending (LAD) artery for coronary artery disease Family History Mother Alzheimer disease Father Stroke Atrial fibrillation Other CAD (coronary artery disease) Hyperlipidemia Hypertension Social History Smoking and tobacco status: never smoked Alcohol intake: never Vitals/I&O/Wt Weight last 48 hrs Weight 62.505 kg Physical Exam Narrative: EXAM NARRATIVE: General: No acute distress, AO x3, on oxygen mask, slight dried blood present in left nares HEENT: PERRLA, pupils bilaterally equal and reactive Chest: Normal vesicular breath sounds, no added sounds, equal good air entry bilaterally CVS: S1-S2 regular, bradycardia no gallops, no rubs, pansystolic murmur present at apex Abdomen: Soft, nontender, no organomegaly, bowel sounds present Neuro: No focal deficits, no facial deformity, AO x3, power 5/5 in all limbs A&P Assessment and plan (1) Pulmonary edema: Status: Acute (2) Uncontrolled hypertension: Status: Acute (3) Ischemic cardiomyopathy: Status: Acute (4) CAD (coronary artery disease): Status: Acute Qualifiers: Coronary Disease-Associated Artery/Lesion type: three affiliated artery [place] vs. transplanted heart: three affiliated heart Associated angina: without angina Qualified Code(s): I25.10 - Atherosclerotic heart disease of three affiliated coronary artery without angina pectoris (5) LORRAINE (acute kidney injury): Status: Acute Additional A&P Information Symptoms today morning most likely secondary to acute pulmonary edema from possible paroxysmal A. fib along with hypertensive urgency with history of uncontrolled hypertension. Currently looks euvolemic. Outside blood work appreciated. Wean of oxygen keeping saturation over 92%. Humidified oxygen. Lanolin cream. Hypoxia: Most likely second to congestive heart failure. We will have to rule out underlying possible pneumonia though unlikely. CT chest without contrast. Check flu swab, COVID-19 PCR. DuoNebs every 6 hours. Flonase twice daily. Congestive heart failure: History of ischemic cardiomyopathy: Mixed congestive and diastolic heart failure. Last echocardiogram from August 09 shows an EF 40% with grade 2 diastolic dysfunction. Repeat echocardiogram. Already received 140 mg of oral Lasix today. Hold off on any further Lasix. Monitor input output. Fluid restriction up to 1500 cc. Repeat BMP in afternoon to monitor potassium. Will consult cardiology for further recommendations and possible medical adjustment. Uncontrolled hypertension: For now continue home dose of losartan 50 mg twice daily, Coreg 3.125 twice daily, Imdur 45 twice daily. Add amlodipine 10 mg daily. Goal blood pressure less than 140/90 mmHg. Will uptitrate medications accordingly. Atrial fibrillation: Currently sinus. Mildly bradycardic. Telemetry. Continue with home dose of Coreg and amiodarone 200 mg daily. If needed can go down on dose of amiodarone to 100 mg daily. CAD: Post PCI to LCx, LAD(history of dissection not amenable to PCI on medical management). Will consult cardiology for possible further medical management. For now continue with home dose of Imdur, aspirin, statin. Will repeat troponin with BMP in afternoon. Acute kidney injury: Most likely overdiuresis. Unlikely CRS. Urine lites, urinalysis, urine eosinophil, urine creatinine. Will continue to monitor. Full code. Cardiac diet. Protonix for daily prophylaxis. Xarelto will help with DVT prophylaxis. Attestations Medical Necessity Statement*: Admission for more than 2 midnights for management of acute pulmonary edema in setting of mixed congestive heart failure, paroxysmal A. fib, uncontrolled hypertension Time Spent in Patient Care: Greater than 35 minutes (>than 50% of time spent in counselling and/or direct pt care on unit). Coding Level of Care Code Acute Housekeeping Associate for Kolby Alvarez Diagnoses Pulmonary edema J81.1 Uncontrolled hypertension I10 Ischemic cardiomyopathy I25.5 CAD (coronary artery disease) I25.10 Coronary Disease-Associated Artery/Lesion type: three affiliated artery [place] vs. transplanted heart: three affiliated heart Associated angina: without angina LORRAINE (acute kidney injury) N17.9
[2021-04-30] MEDS: amlodipine 10 mg Tablet PO (12:30)
[2021-04-30] MEDS: benzonatate 100 mg Capsule PO (12:30)
[2021-04-30] MEDS: potassium chloride ER 20 mEq Tablet 40 MEQ PO (12:30)
[2021-04-30] MEDS: pantoprazole DR 40 mg Tablet PO (12:30)
[2021-04-30] MEDS: lanolin oint 7 gm 1 APPLIC TOPICAL (12:35)
[2021-04-30 13:11] LABS: Phosphorus 3.6 mg/dL (2.5-4.5)
[2021-04-30 14:42] LABS: Adenovirus Not Detected (NOT DETECT); Chlamydia Pneumoniae Not Detected (NOT DETECT); Coronavirus 229E,HKU1,NL63,OC4 Not Detected (NOT DETECT); Human Metapneumovirus Not Detected (NOT DETECT); Human Rhinovirus/Enterovirus Not Detected (NOT DETECT); Influenza A Not Detected (NOT DETECT); Influenza A H1 Not Detected (NOT DETECT); Influenza A H1-2009 Not Detected (NOT DETECT); Influenza A H3 Not Detected (NOT DETECT); Influenza B Not Detected (NOT DETECT); Mycoplasma Pneumoniae Not Detected (NOT DETECT); Parainfluenza Virus Type 1 Not Detected (NOT DETECT); Parainfluenza Virus Type 2 Not Detected (NOT DETECT); Parainfluenza Virus Type 3 Not Detected (NOT DETECT); Parainfluenza Virus Type 4 Not Detected (NOT DETECT); Respiratory Syncytial Virus A Not Detected (NOT DETECT); Respiratory Syncytial Virus B Not Detected (NOT DETECT); SARS-COV-2 Not Detected (NOT DETECT)
[2021-04-30 14:47] LABS: Influenza A Not Detected (NOT DETECT); Influenza A H1 Not Detected (NOT DETECT); Influenza A H1-2009 Not Detected (NOT DETECT); Influenza A H3 Not Detected (NOT DETECT); Influenza B Not Detected (NOT DETECT); Results from Genmark
[2021-04-30] MEDS: ipratropium-albuterol 3 mL Neb INHALATION ×2 (14:56→20:36)
[2021-04-30 15:42] LABS: Add Urine Microscopic? NO; Charge for UA Resulting for Rev
[2021-04-30 15:46] LABS: D Dimer 0.33 ug/mIFEU (0-0.59)
[2021-04-30 15:55] LABS: Bilirubin Urine Neg (Negative); Blood Urine Neg (Negative); Glucose Urine UA Norm (Normal); Ketones Urine Negative (Negative); Leukocyte Esterase Urine Negative (Negative); Nitrate Urine Negative (Negative); Protein Urine Neg (Negative); Urine Appearance Clear (CLEAR); Urine Color Straw (Yellow); Urobilinogen Urine Norm (Negative); pH Urine 6.5 (5-7)
[2021-04-30 15:57] LABS: Troponin T (5th) Once 91 ng/L (0-10)
[2021-04-30 16:11] LABS: Urine Creatinine 21 mg/dL (28-217)
[2021-04-30 16:22] LABS: Procalcitonin 0.09 ng/mL (0-0.5)
[2021-04-30 16:30] LABS: Eosinophil Urine No Eosinophils Seen; Urine Eosinophil Count 0 (0-0)
--- NOTE | 2021-04-30 18:05 | PM.CONSULT ---
Providers/Reason For Consult Consulting Physician/Specialty*: Blake Griffin MD/Cardiology Reason for Consult*: Congestive heart failure Requesting Physician: Dr Murphy Attending Physician: Nicolas Murphy MD Primary Care Provider: Betty Abreu MD History of Present Illness History of Present Illness Nika Abreu is a 86 year old female with past medical history of hypertension, hyperlipidemia, atrial fibrillation, CAD status post PCI to left circumflex artery and attempted to LAD PCI that resulted in dissection that was left for medical therapy, rest consult postmastectomy, systolic and diastolic congestive heart failure with known EF of 45%. She has been transferred from [facility] for symptoms of congestive heart failure. According to patient she was feeling well till yesterday however started having shortness of breath early childhood associate today. This was associated with cough. Her baseline weight is 133 pounds and was 134.5 pounds recently. At outside hospital her blood pressure was more than 200 mmHg systolic. Creatinine was 1.5 without leukocytosis. Chest x-ray showed bilateral pulmonary infiltrates and NT proBNP was elevated. She is getting diuresis. At time of my evaluation she is on 1 L oxygen and saturating well. Her cough and shortness of breath have improved. COVID PCR is negative. Denies chest pain. Echocardiogram was performed that showed LV systolic function was mildly reduced with EF of 40 to 45%. She has at least moderate mitral regurgitation. Review of Systems General: Reports: 10 or more systems reviewed and unremarkable except in HPI and below Meds/Allergies Home Medications and Allergies Home Medications Medication Instructions Recorded Confirmed Last Taken Type amiodarone [Pacerone] 200 mg PO DAILY #30 tab 08/14/20 04/30/21 04/30/21 05:30 Rx aspirin 81 mg PO DAILY@08 #30 tab 08/14/20 04/30/21 04/30/21 05:30 Rx cyanocobalamin (vitamin B-12) 1,000 mcg PO DAILY #30 tab 08/14/20 04/30/21 04/30/21 05:30 Rx [Vitamin B-12] furosemide 40 mg PO DAILY@0800 #30 tab 08/14/20 04/30/21 04/30/21 05:30 Rx isosorbide mononitrate 30 mg 45 mg PO BID tab 10/25/20 04/30/21 04/30/21 05:30 History tablet,extended release 24 hr nitroglycerin 0.4 mg sublingual 0.4 mg SUBLINGUAL Q5M PRN #30 tab 10/25/20 04/30/21 Unknown Rx tablet rivaroxaban 15 mg tablet 15 mg PO DAILY 10/25/20 04/30/21 04/30/21 05:30 History albuterol sulfate 2 puff INHALATION QID PRN 03/23/21 04/30/21 04/30/21 05:30 History atorvastatin 20 mg PO DAILY 03/23/21 04/30/21 04/30/21 05:30 History losartan 50 mg PO BID MDD see pharmacy 03/23/21 04/30/21 04/30/21 05:30 History comment carvedilol 3.125 mg PO BID 04/30/21 04/30/21 04/30/21 05:30 History famotidine 20 mg PO DAILY 04/30/21 04/30/21 04/30/21 05:30 History potassium chloride 30 meq PO DAILY 04/30/21 04/30/21 04/30/21 05:30 History Allergies Allergy/AdvReac Type Severity Reaction Status Date / Time Penicillins Allergy Unknown Verified 10/25/20 10:38 Current Medications Current Medications Generic Name Dose Route Start Last Admin Trade Name Freq PRN Reason Stop Dose Admin Albuterol/Ipratropium 3 ml 04/30/21 15:00 04/30/21 14:56 Ipratropium-Albuterol 3 Ml Neb INHALATION 3 ml Q6H.RESPIRATORY IGOR Administration Amlodipine Besylate 10 mg 04/30/21 10:55 04/30/21 12:30 Amlodipine 10 Mg Tablet PO 10 mg DAILY IGOR Administration Benzonatate 100 mg 04/30/21 10:53 04/30/21 12:30 Benzonatate 100 Mg Capsule PO 100 mg TID PRN Administration COUGH Lanolin 1 applic 04/30/21 10:47 04/30/21 12:35 Lanolin Oint 7 Gm TOPICAL 1 applic PRN PRN Administration DRYNESS Pantoprazole Sodium 40 mg 04/30/21 10:50 04/30/21 12:[address] 40 Mg Tablet PO 40 mg DAILY IGOR Administration PFSH Acute PFSH: Medical History Anemia Atrial flutter Breast cancer CAD (coronary artery disease) CHF (congestive heart failure) Dissection of coronary artery HTN (hypertension) Hyperlipidemia Ischemic cardiomyopathy NSVT (nonsustained ventricular tachycardia) Surgical History H/O mastectomy Hx of colonoscopy with polypectomy S/P right coronary artery (RCA) stent placement Status post insertion of drug-eluting stent into left anterior descending (LAD) artery for coronary artery disease Family History Mother Alzheimer disease Father Stroke Atrial fibrillation Other CAD (coronary artery disease) Hyperlipidemia Hypertension Social History Smoking and tobacco status: never smoked Alcohol intake: never Vitals/I&O/Wt Last Vital Signs Pulse 59 L 04/30/21 15:00 Resp 14 04/30/21 14:56 Pulse Ox 99 04/30/21 14:56 04/30/21 04/30/21 04/30/21 06:59 14:59 22:59 Output Total 950 / 950 350 / 1300 Balance -950 / -950 -350 / -1300 Weight last 48 hrs Weight 137 lb 12.8 oz Physical Exam Narrative: EXAM NARRATIVE: GENERAL: Patient is alert, awake and oriented x3. [] NECK: No jugular vein distension. [] HEENT: No cyanosis. No icterus. No pallor. [] HEART: Regular S1 and S2. No murmur, rub or gallop. [] LUNGS: Mild crackles bilaterally [] ABDOMEN: Soft, nontender and nondistended. Positive bowel sounds. No guarding, rebound or tenderness. [] CENTRAL NERVOUS SYSTEM: Grossly nonfocal. [] EXTREMITIES: Lower extremities with 1+ edema bilaterally. Pulses palpable in the lower extremities, both dorsalis pedis and posterior tibial. [] Data Micro: Micro: Microbiology 04/30/21 13:38 Legionella Urinary Antigen - Final Urine,Clean Catch 04/30/21 13:38 Bacterial Antigens - Final Urine Kidney A&P Assessment and plan (1) LORRAINE (acute kidney injury): Status: Acute (2) Uncontrolled hypertension: Status: Acute (3) Ischemic cardiomyopathy: Status: Acute (4) HTN (hypertension): Status: Acute (5) CAD (coronary artery disease): Status: Acute Qualifiers: Coronary Disease-Associated Artery/Lesion type: [place] artery [place] vs. transplanted heart: [place] heart Associated angina: without angina Qualified Code(s): I25.10 - Atherosclerotic heart disease of [place] coronary artery without angina pectoris (6) Pulmonary edema: Status: Acute Patient has presented with acute pulmonary edema. Has been diuresing well and oxygen requirement is lower now. She does have LVEF of 40 to 45%, moderate mitral regurgitation and grade 2 diastolic dysfunction. We will discuss transesophageal echocardiogram to assess severity of mitral regurgitation, can be done as outpatient We will uptitrate Imdur to 60 mg twice daily. Add amlodipine 5 mg. Continue rest of the medications. Continue diuresis for now. Close I&O's. At time of discharge showed put her on twice daily dosing of Lasix. Low-sodium diet advised. Thank you for involving us with care of this patient. We will continue to follow. Please call with questions. Coding Level of Care Code Acute Warehouse Technician for Kolby Alvarez Diagnoses LORRAINE (acute kidney injury) N17.9 Uncontrolled hypertension I10 Ischemic cardiomyopathy I25.5 HTN (hypertension) I10 CAD (coronary artery disease) I25.10 Coronary Disease-Associated Artery/Lesion type: [place] artery [place] vs. transplanted heart: [place] heart Associated angina: without angina Pulmonary edema J81.1
[2021-04-30] MEDS: fluticasone nasal spray 16gm Btl 1 SPRAY NASAL (18:22)
[2021-04-30] MEDS: rivaroxaban 10 mg Tablet 15 MG PO (18:23)
--- NOTE | 2021-04-30 19:26 | PC.NURSE ---
Dr. Joshua notified of heart rate of 54. Ordered to give Coreg that is due now.
[2021-04-30] MEDS: carvedilol 3.125 mg Tablet PO (20:30)
[2021-05-01] VITALS (9 sets, daily range): BP systolic 127–156; BP diastolic 58–70; PULSE 53–69; RESP 10–21; O2SAT 99–100
[2021-05-01] MEDS: ipratropium-albuterol 3 mL Neb INHALATION ×2 (02:53→08:33)
[2021-05-01 03:34] LABS: Basophils % 0.5 %; Eosinophils # 0.1 10^3/uL (0.0-0.8); Eosinophils % 2.4 %; Hematocrit 37.3 % (37.0-47.0); Hemoglobin 11.9 g/dL (11.5-15.3); Lymphocytes # 1.5 10^3/uL (0.8-4.8); Lymphocytes % 27.5 %; Mean Corpuscular HGB Conc 31.9 g/dL (30.0-36.0); Mean Corpuscular Hemoglobin 30.7 pg (28.0-34.0); Mean Corpuscular Volume 96.1 fl (81-99); Mean Platelet Volume 9.5 fL (7.4-10.4); Monocytes # 0.5 10^3/uL (0.2-0.9); Monocytes % 9.6 %; Neutrophils # 3.31 10^3/uL (1.8-7.7); Neutrophils % 59.8 %; Nucleated Red Blood Cells % 0 %; Platelet Count 189 10^3/cmm (130-400); Red Blood Count 3.88 10^6/uL (4.1-5.3); Red Cell Distribution Width 14.3 % (12.1-15.1); White Blood Count 5.5 10^3/uL (4.0-10.0)
[2021-05-01 03:59] LABS: Alanine Aminotransferase 15 U/L (0-33); Albumin Level 3.5 g/dL (3.5-5.2); Alkaline Phosphatase 105 IU/L (35-105); Anion Gap 12.3 (5-19); Aspartate Amino Transferase 17 U/L (0-32); Blood Urea Nitrogen 17 mg/dL (8-23); Calcium 8.6 mg/dL (8.5-10.5); Carbon Dioxide 29 mmol/L (22-29); Chloride 103 mmol/L (98-107); Glucose 95 mg/dL (65-115); Osmolality Calculated 293 mOsm/kg (285-295); Potassium 3.3 mmol/L (3.5-5.1); Sodium 141 mmol/L (136-145); Total Bilirubin 0.5 mg/dL (0.15-1.2); Total Protein 5.5 g/dL (6.6-8.7)
[2021-05-01 05:04] LABS: NT Pro B Type Natriuretic Pept 4906 pg/mL (0-450)
[2021-05-01] MEDS: amiodarone 200 mg Tablet PO (08:38)
[2021-05-01] MEDS: losartan 50 mg Tablet PO (08:39)
[2021-05-01] MEDS: aspirin 81 mg EC Tablet PO (08:39)
[2021-05-01] MEDS: atorvastatin 40 mg Tablet 20 MG PO (08:41)
[2021-05-01] MEDS: pantoprazole DR 40 mg Tablet PO (08:41)
[2021-05-01] MEDS: cyanocobalamin 1,000 mcg Tablet 1000 MCG PO (08:41)
[2021-05-01] MEDS: isosorbide mononitrate ER 30 mg Tablet 60 MG PO (08:42)
[2021-05-01] MEDS: carvedilol 3.125 mg Tablet PO (08:45)
[2021-05-01] MEDS: fluticasone nasal spray 16gm Btl 1 SPRAY NASAL (08:45)
[2021-05-01] MEDS: potassium chloride ER 20 mEq Tablet 40 MEQ PO (10:15)
[2021-05-01] MEDS: FUROsemide 40 mg Tablet PO (10:15)
--- NOTE | 2021-05-01 11:54 | P.DS_ITS ---
Discharge Providers Date of Admission: 04/30/21 09:35 Date of Discharge: May 01, 2021 Attending Provider at Admission: Nicolas Murphy MD Attending Provider at Discharge: Nicolas Murphy MD Consults: Cardiology: Dr. Griffin Primary Care Provider: Betty Abreu MD Diagnoses at Discharge Discharge Diagnosis (1) LORRAINE (acute kidney injury): Status: Acute (2) Uncontrolled hypertension: Status: Acute (3) Ischemic cardiomyopathy: Status: Acute (4) HTN (hypertension): Status: Acute (5) CAD (coronary artery disease): Status: Acute Qualifiers: Coronary Disease-Associated Artery/Lesion type: [place] artery [place] vs. transplanted heart: [place] heart Associated angina: without angina Qualified Code(s): I25.10 - Atherosclerotic heart disease of [place] coronary artery without angina pectoris (6) Pulmonary edema: Status: Acute Reason for Visit Reason for Visit: [facility] Hospital Course Nika Abreu is a very pleasant 86 year old female well-known to me from before with past medical history of hypertension, hyperlipidemia, atrial fibrillation, CAD post PCI to LCx, LAD?dissection not amenable to PCI on medical management, breast cancer postmastectomy, systolic and diastolic congestive heart failure who was transferred today from [facility]. As per patient she was at her baseline health till yesterday. She had a good day yesterday. Today morning when she woke up she felt central chest pressure along with difficulty in breathing which did not settle in an hour so she called the EMS. As per the patient she started having irritative cough since today morning. Denies any myalgia, fever, cough, headache, diarrhea, dizziness till today morning. Did have palpitations at home today morning along with the episode of difficulty in breathing. Also states her blood pressure today stacey jane was high. Also states for last few days she has been having occasional episodes of epistaxis for which she has been taking her Xarelto on and off. She states her body weight at home has mostly remained stable. It was 134.5 few days ago and yesterday it was 133 pounds. States she really had a good day yesterday without having any symptoms. Has been vaccinated for COVID-19. Documented blood pressure at outside hospital 210 mmHg. While she was waiting for the EMS she took her oral home medications and to nebulizations of albuterol. On presentation to the ER at [facility] she was found to be mildly hypoxic so she was put on oxygen. Currently she is on oxygen mask 5 L saturating 99%. Blood work at outside hospital shows a creatinine of 1.5, potassium of 3.3, sodium of 140, hemoglobin of 16, no leukocytosis, negative COVID-19 antigen with chest x-ray reported as bilateral pulmonary infiltrates of pulmonary edema versus possible pneumonia. Patient is admitted to the hospital for further management of acute pulmonary edema most likely secondary to uncontrolled hypertension and possibly from paroxysmal A. fib. Repeat echocardiogram was done which was consistent with an EF of 40 to 45% with at least moderate MR, grade 2 diastolic dysfunction, mild TR with mild pulmonary hypertension with RVSP of 35 to 40 mmHg. During hospitalization she was found to have elevated blood pressures for which her antihypertensives were adjusted. Cardiology was consulted. On admission she was found to be in mild LORRAINE which was treated conservatively. By the next day her creatinine is down to 1. During hospitalization CODE STATUS was discussed in detail with the patient and she stated quality of life is more important to her and wished for DNR/DNI. She has been discharged in hemodynamically stable condition on following medical changes. Her dose of Imdur has been increased to 60 mg twice daily, Lasix has been changed to 40 mg in the morning and 20 mg in the evening, losartan has been continued at 50 mg twice daily. Amlodipine 5 mg has been added to medical regimen. Physical Exam Narrative: EXAM NARRATIVE: General: No acute distress, AO x3, on room air HEENT: PERRLA, pupils bilaterally equal and reactive Chest: Normal vesicular breath sounds, no added sounds, equal good air entry bilaterally CVS: S1-S2 regular, bradycardia no gallops, no rubs, pansystolic murmur present at apex Abdomen: Soft, nontender, no organomegaly, bowel sounds present Neuro: No focal deficits, no facial deformity, AO x3, power 5/5 in all limbs Discharge Data Data Completed and Pending: Completed Studies During Hospitalization Category Date Time Status CT chest wo con 7 [id number] Urgent Cat Scan 04/30/21 10:49 Completed CV. echo complete * [id number] Routine Ultrasound 04/30/21 10:49 Completed Labs from last 24 hours 05/01/21 05/01/21 05/01/21 03:18 03:18 03:18 WBC 5.5 RBC 3.88 L Hgb 11.9 Hct 37.3 MCV 96.1 MCH 30.7 MCHC 31.9 RDW 14.3 Plt Count 189 MPV 9.5 Neut % (Auto) 59.8 Lymph % (Auto) 27.5 [place] % (Auto) 9.6 Eos % (Auto) 2.4 Baso % (Auto) 0.5 Neut # (Auto) 3.31 Lymph # (Auto) 1.5 [place] # (Auto) 0.5 Eos # (Auto) 0.1 Baso # (Auto) 0.0 Nucleated RBC % (a uto) 0 Nucleated RBCs # 0.0 D-Dimer Sodium 141 Potassium 3.3 L Chloride 103 Carbon Dioxide 29 Anion Gap 12.3 BUN 17 Creatinine 1.0 H GFR Calculation Not Reportable Glucose 95 Calculated Osmolal ity 293 Calcium 8.6 Phosphorus Magnesium Total Bilirubin 0.5 AST 17 ALT 15 Alkaline Phosphata se 105 Troponin T Gen 5 n g/L NT-Pro-B Natriuret Pep 4906 H Total Protein 5.5 L Albumin 3.5 Globulin 2.0 Procalcitonin Urine Color Urine Appearance Urine pH Ur Specific Gravit y Urine Protein Urine Glucose (UA) Urine Ketones Urine Blood Urine Nitrate Urine Bilirubin Urine Urobilinogen Ur Leukocyte Meenu ase Ur Eosinophil Smea r Urine Eosinophils Urine Creatinine Nasal Influ A H1 2 009 PCR Coronavirus 229E ( PCR) Influenza A (H1) P CR Influenza A (H3) P CR Influenza Type A A g Influenza Type A ( PCR) Influenza Type B A g Influenza Type B ( PCR) SARS-CoV-2 (PCR) 04/30/21 04/30/21 04/30/21 15:05 15:05 14:51 WBC RBC Hgb Hct MCV MCH MCHC RDW Plt Count MPV Neut % (Auto) Lymph % (Auto) [place] % (Auto) Eos % (Auto) Baso % (Auto) Neut # (Auto) Lymph # (Auto) [place] # (Auto) Eos # (Auto) Baso # (Auto) Nucleated RBC % (a uto) Nucleated RBCs # D-Dimer 0.33 Sodium Potassium Chloride Carbon Dioxide Anion Gap BUN Creatinine GFR Calculation Glucose Calculated Osmolal ity Calcium Phosphorus Magnesium 2.0 Total Bilirubin AST ALT Alkaline Phosphata se Troponin T Gen 5 n g/L 91 H NT-Pro-B Natriuret Pep Total Protein Albumin Globulin Procalcitonin 0.09 Urine Color Urine Appearance Urine pH Ur Specific Gravit y Urine Protein Urine Glucose (UA) Urine Ketones Urine Blood Urine Nitrate Urine Bilirubin Urine Urobilinogen Ur Leukocyte Meenu ase Ur Eosinophil Smea r Urine Eosinophils Urine Creatinine Nasal Influ A H1 2 009 PCR Coronavirus 229E ( PCR) Influenza A (H1) P CR Influenza A (H3) P CR Influenza Type A A g Influenza Type A ( PCR) Influenza Type B A g Influenza Type B ( PCR) SARS-CoV-2 (PCR) 04/30/21 04/30/21 04/30/21 13:38 13:38 12:36 WBC RBC Hgb Hct MCV MCH MCHC RDW Plt Count MPV Neut % (Auto) Lymph % (Auto) [place] % (Auto) Eos % (Auto) Baso % (Auto) Neut # (Auto) Lymph # (Auto) [place] # (Auto) Eos # (Auto) Baso # (Auto) Nucleated RBC % (a uto) Nucleated RBCs # D-Dimer Sodium Potassium Chloride Carbon Dioxide Anion Gap BUN Creatinine GFR Calculation Glucose Calculated Osmolal ity Calcium Phosphorus Magnesium Total Bilirubin AST ALT Alkaline Phosphata se Troponin T Gen 5 n g/L NT-Pro-B Natriuret Pep Total Protein Albumin Globulin Procalcitonin Urine Color Straw Urine Appearance Clear Urine pH 6.5 Ur Specific Gravit y 1.010 Urine Protein Neg Urine Glucose (UA) Norm Urine Ketones Negative Urine Blood Neg Urine Nitrate Negative Urine Bilirubin Neg Urine Urobilinogen Norm Ur Leukocyte Meenu ase Negative Ur Eosinophil Smea r 0 Urine Eosinophils No eosinophils se en Urine Creatinine 21 L Nasal Influ A H1 2 009 PCR Not detected Coronavirus 229E ( PCR) Influenza A (H1) P CR Not detected Influenza A (H3) P CR Not detected Influenza Type A A g Influenza Type A ( PCR) Not detected Influenza Type B A g Influenza Type B ( PCR) Not detected SARS-CoV-2 (PCR) 04/30/21 04/30/21 04/30/21 12:36 12:36 11:03 WBC RBC Hgb Hct MCV MCH MCHC RDW Plt Count MPV Neut % (Auto) Lymph % (Auto) [place] % (Auto) Eos % (Auto) Baso % (Auto) Neut # (Auto) Lymph # (Auto) [place] # (Auto) Eos # (Auto) Baso # (Auto) Nucleated RBC % (a uto) Nucleated RBCs # D-Dimer Sodium Potassium Chloride Carbon Dioxide Anion Gap BUN Creatinine GFR Calculation Glucose Calculated Osmolal ity Calcium Phosphorus 3.6 Magnesium Total Bilirubin AST ALT Alkaline Phosphata se Troponin T Gen 5 n g/L NT-Pro-B Natriuret Pep Total Protein Albumin Globulin Procalcitonin Urine Color Urine Appearance Urine pH Ur Specific Gravit y Urine Protein Urine Glucose (UA) Urine Ketones Urine Blood Urine Nitrate Urine Bilirubin Urine Urobilinogen Ur Leukocyte Meenu ase Ur Eosinophil Smea r Urine Eosinophils Urine Creatinine Nasal Influ A H1 2 009 PCR Coronavirus 229E ( PCR) Not detected Influenza A (H1) P CR Influenza A (H3) P CR Influenza Type A A g Cancelled Influenza Type A ( PCR) Influenza Type B A g Cancelled Influenza Type B ( PCR) SARS-CoV-2 (PCR) Not detected Addt'l Data from Hospital Stay: Abnormal lab results 04/30/21 04/30/21 05/01/21 Range/Units 13:38 15:05 03:18 RBC 3.88 L (4.1-5.3) 10^6/u L Potassium (3.5-5.1) mmol/L Creatinine (0.5-0.9) mg/dL Troponin T Gen 5 n g/L 91 H (0-10) ng/L NT-Pro-B Natriuret Pep (0-450) pg/mL Total Protein (6.6-8.7) g/dL Urine Creatinine 21 L (28-217) mg/dL 05/01/21 05/01/21 Range/Units 03:18 03:18 RBC (4.1-5.3) 10^6/u L Potassium 3.3 L (3.5-5.1) mmol/L Creatinine 1.0 H (0.5-0.9) mg/dL Troponin T Gen 5 n g/L (0-10) ng/L NT-Pro-B Natriuret Pep 4906 H (0-450) pg/mL Total Protein 5.5 L (6.6-8.7) g/dL Urine Creatinine (28-217) mg/dL Radiology Impressions Chest CT 04/30/21 10:49 IMPRESSION: 1. Diffuse hazy bilateral groundglass infiltrates more prominent in the perihilar regions and upper lobe suspicious for viral pneumonia. Recommend correlation for Covid 19 pneumonia. Some of this may be due to pulmonary edema. 2. Small bilateral pleural effusions. 3. No focal consolidation. 4. Normal caliber thoracic aorta. Aortic coronary calcification. 5. No other acute findings. Laboratory Results Echocardiogram: CONCLUSIONS LV systolic function is mildly reduced with EF of 40-45% Grade 2 diastolic dysfunction Left atrial enlargement Atleast moderate mitral regurgitation. Recommend THOR to further assess the severity/etiology of the mitral regurgitation Mild tricuspid regurgitation. Mild pulmonary hypertension Mild pulmonic regurgitation Compared to prior echocardiogram from 08/13/2020, no significant changes are seen Vitals: Last Vital Signs Temp 98.2 F 04/30/21 20:00 Pulse 62 05/01/21 08:39 Resp 17 05/01/21 08:35 BP 156/67 05/01/21 08:39 Pulse Ox 100 05/01/21 08:39 Discharge Plan Discharge Patient Disposition: Home Condition: Stable Prescriptions: New isosorbide mononitrate 60 mg tablet extended release 24 hr 60 mg PO BID 90 Days Qty: 180 RF: 0 Lasix 20 mg tablet 20 mg PO QPM 90 Days Qty: 90 RF: 0 amlodipine 5 mg Tablet 5 mg PO DAILY 90 Days Qty: 90 RF: 0 Continued nitroglycerin 0.4 mg tablet, sublingual 0.4 mg sublingual Q5M PRN (Reason: chest pain) Qty: 30 RF: 6 furosemide 40 mg Tablet 40 mg PO DAILY@0800 Qty: 30 RF: 0 amiodarone [Pacerone] 200 mg Tablet 200 mg PO DAILY Qty: 30 RF: 0 cyanocobalamin (vitamin B-12) [Vitamin B-12] 1,000 mcg Tablet 1,000 mcg PO DAILY Qty: 30 RF: 0 aspirin 81 mg Tablet,Delayed Release (Dr/Ec) 81 mg PO DAILY@08 Qty: 30 RF: 0 albuterol sulfate 90 mcg/actuation Hfa Aerosol Inhaler 2 puff INHALATION QID PRN (Reason: Shortness Of Breath) RF: 0 atorvastatin 40 mg tablet 20 mg PO DAILY RF: 0 famotidine 20 mg Tablet 20 mg PO DAILY RF: 0 potassium chloride 20 mEq tablet extended release 30 meq PO DAILY RF: 0 losartan 50 mg tablet 50 mg PO BID MDD see pharmacy comment 90 Days Qty: 180 RF: 0 carvedilol 3.125 mg Tablet 3.125 mg PO BID 90 Days Qty: 180 RF: 0 Xarelto 15 mg tablet 15 mg PO DAILY 90 Days Qty: 90 RF: 0 Discontinued isosorbide mononitrate 30 mg tablet extended release 24 hr 45 mg PO BID RF: 0 Discharge Orders: Discharge Order (Routine); Ordered 05/01/21 Ordered By: Nicolas Murphy Discharge Diet: Cardiac Discharge Activity: Resume usual activity Patient Instructions: Opioid Safety Activity Restrictions/Additional Instructions: Dose of Imdur has been increased to 60 mg twice daily. Lasix has been changed to 40 mg in morning and 20 mg in the evening. Please monitor your blood pressure daily at home and maintain a blood pressure diary. Amlodipine 5 mg has been added daily for your blood pressure control. Please restrict fluid intake to less than 1500 cc a day. Salt intake to less than 2 g/day. Discharge Attestations Time Spent in Discharge Care*: greater than 30 min Specific Discharge Activities: educating patient, educating and/or supporting family/caregiver, discussing with onsite case manager/social workers/dc planners, documenting/other paperwork and evaluating patient/reviewing data Status at Discharge: Cognitive status at discharge: cognitively intact , Behavioral status at discharge: cooperative , Functional status at discharge: independent ambulation Overall status at discharge: patient is back to baseline Quality Metrics Clinical Quality Measures During this hospital stay, did patient experience: None Coding Level of Care Code Acute [facility] DC note Diagnoses LORRAINE (acute kidney injury) N17.9 Uncontrolled hypertension I10 Ischemic cardiomyopathy I25.5 HTN (hypertension) I10 CAD (coronary artery disease) I25.10 Coronary Disease-Associated Artery/Lesion type: [place] artery [place] vs. transplanted heart: [place] heart Associated angina: without angina Pulmonary edema J81.1
--- NOTE | 2021-05-01 14:45 | PC.NURSE ---
Discharge Note Patient discharged to Home via private vehicle accompanied by family. Discharge instructions reviewed with patient and/or support representative. Mobile pharmacy medications and/or prescriptions provided. Belongings/home medications returned.
== END 2021-05-01 14:45 | disposition home or self-care (01) | DRG 291 ==
PROVIDERS: Admitting Provider Student in an Organized Health Care Education/Training Program; PCP Family Medicine; Visit Provider Student in an Organized Health Care Education/Training Program
DX: I11.0 Hypertensive heart disease with heart failure (principal); J81.0 Acute pulmonary edema; N17.9 Acute kidney failure, unspecified; I50.42 Chronic combined systolic (congestive) and diastolic (congestive) heart failure; E78.5 Hyperlipidemia, unspecified; I48.0 Paroxysmal atrial fibrillation; Z79.01 Long term (current) use of anticoagulants; I25.10 Atherosclerotic heart disease of native coronary artery without angina pectoris; Z66 Do not resuscitate; I34.0 Nonrheumatic mitral (valve) insufficiency; I27.20 Pulmonary hypertension, unspecified; I37.1 Nonrheumatic pulmonary valve insufficiency; Z79.82 Long term (current) use of aspirin; I25.5 Ischemic cardiomyopathy
CPT/HCPCS: 36415; 71250; 80053; 81003; 82570; 83735; 83880; 84100; 84145; 84484; 85025; 85378; 85999; 86403; 87449; 87631; 87635; 93306; 94640; 94664

== ENCOUNTER → 2021-10-30 12:59 | Outpatient (BNVA) | payer MEDICARE, OTHER, SELFPAY | PROVIDERS: PCP Family Medicine; Visit Provider Nurse Practitioner Family | DX: I11.0 Hypertensive heart disease with heart failure (principal); I50.9 Heart failure, unspecified; I25.10 Atherosclerotic heart disease of native coronary artery without angina pectoris | CPT/HCPCS: 99214 ==

== ENCOUNTER 2022-02-07 11:29 | Emergency (ER) | payer MEDICARE, OTHER, SELFPAY ==
[2022-02-07 11:53] VITALS: BMI 22.6
[2022-02-07 11:56] VITALS: BP 173/75; PULSE 55; RESP 18; TEMP 36.7; O2SAT 98
--- NOTE | 2022-02-07 12:06 | ED_ITS ---
HPI - Female Genitourinary General: Chief complaint: Urogenital-Female Stated complaint: urinary pain Time Seen by Provider: 02/07/22 12:05 History of Present Illness: Ms. Abreu is an 87-year-old lady presenting to the emergency department due to hematuria. She reports recently completing a course of cefdinir for UTI which was diagnosed by dipstick with leuk esterase positive. She had a bowel movement and urination this morning when she noticed blood in the toilet bowl. She was not sure if this came from her stool or urine and so she later put on a pad and just urinated and it was pink/blood-tinged. Minimal associated abdominal pressure and discomfort though feels like overall the signs of urinary tract infection have improved/resolved. Denies signs systemic illness. No other specific changes in health, exacerbating, or alleviating factors identified. No frequent history of similar. Colonoscopy approximately 1.5 years ago with a positive pathology report on a polyp though apparently this was contained within the polyp. Onset (ago): hour(s) Urinary symptoms: Hematuria Exacerbating factors: none Relieving factors: none Associated symptoms: Reports no associated symptoms Review of Systems General: Reports: 10 or more systems reviewed and unremarkable except in HPI and below PFSH ED PFSH: Medical History Anemia Atrial flutter Breast cancer CAD (coronary artery disease) CHF (congestive heart failure) Dissection of coronary artery HTN (hypertension) Hyperlipidemia Ischemic cardiomyopathy Mitral regurgitation NSVT (nonsustained ventricular tachycardia) Surgical History H/O mastectomy Hx of colonoscopy with polypectomy S/P right coronary artery (RCA) stent placement Status post insertion of drug-eluting stent into left anterior descending (LAD) artery for coronary artery disease Family History Mother Alzheimer disease Father Stroke Atrial fibrillation Other CAD (coronary artery disease) Hyperlipidemia Hypertension Social History Smoking and tobacco status: never smoked Alcohol intake: never Physical Exam Const: COMMON NORMALS: alert GENERAL APPEARANCE: cooperative and well developed HENMT: COMMON NORMALS: normocephalic and atraumatic HEAD & SCALP: norm ocephalic and atraumatic Eye: COMMON NORMALS: conjunctivae normal CONJUNCTIVA: Yes conjunctivae normal SCLERA: sclerae normal Neck/C-Spine: COMMON NORMALS: supple GENERAL: Yes trachea midline Resp: COMMON NORMALS: clear to auscultation bilaterally EFFORT & INSPECTION: Yes able to speak in complete sentences AUSCULTATION: clear to auscultation bilaterally Cardio: COMMON NORMALS: regular rate and regular rhythm RATE: regular rate RHYTHM: regular rhythm GI: COMMON NORMALS: Soft to palpation PALPATION: Yes Soft to palpation and No Tenderness to palpation present (GI) : COMMON NORMALS: Yes no CVA tenderness BLADDER/KIDNEY EXAM: Yes no CVA tenderness Back/Pelvis: COMMON NORMALS: no CVA tenderness Extremity: GENERAL: Yes normal exam except as noted and No edema Neuro: COMMON NORMALS: moves all extremities SENSORIUM/ORIENTATION: Yes alert and No Orientation impaired Psych: COMMON NORMALS: mental status grossly normal and Normal thought process present THOUGHT PROCESS: Normal thought process present Course Vital Signs: Vital signs: Vital Signs Temperature 98.0 F 02/07/22 11:56 Pulse Rate 56 L 02/07/22 16:00 Respiratory Rate 18 02/07/22 11:56 Blood Pressure 155/75 02/07/22 16:00 Pulse Oximetry 99 02/07/22 16:00 Oxygen Delivery Me thod 02/07/22 15:30 MDM - Female Medical Decision Making 87-year-old lady presenting with abdominal symptoms and history of UTI. Vitally satisfactory and no evidence of acute surgical abdomen on abdominal exam. Laboratory studies notable for no leukocytosis, normal hemoglobin. Metabolic panel with minimal hypokalemia, replenishment ordered. Creatinine is near recent baseline. Hematuria on urinalysis without other evidence of infection. CT abdomen and pelvis with small amount of sludge in the gallbladder without evidence of cholecystitis. Attenuation of the liver is abnormal. No other villa pathology identified to explain symptoms. Upon reexamination of patient and clinical history there does not appear to be any evidence of biliary colic or gallbladder pathology on exam. Incidental findings were discussed. Patient satisfactory for outpatient management with further PCP follow-up and consideration of urology referral. Most likely cause of patient symptoms is unspecified abdominal pain, hypokalemia, abnormal CT imaging, hematuria. Plan to have patient hold anticoagulation for 3 days and have close repeat hematuria evaluation. Discussed risks of holding anticoagulation with patient. The results of ED evaluation were discussed with the patient including prescriptions and/or symptomatic cares (if applicable) including appropriate and responsible use, followup plan, and return precautions. The patient verbalized understanding and felt safe for discharge. Medical Records I reviewed the patient's medical records. Lab Data I reviewed the patient's lab results. : 02/07/22 13:07 02/07/22 13:07 Radiology Impressions Abdomen/Pelvis CT 02/07/22 13:19 IMPRESSION: 1. Small amount of sludge or tiny microcalculi in the gallbladder. No gallbladder wall thickening or pericholecystic fluid. 2. 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 No hydronephrosis in either kidney. No obstructing renal or ureteral calculi. 3. Bladder is normal in appearance. No bladder wall thickening. 4. Increased noncontrast liver attenuation nonspecific but can be seen with liver fibrosis, hemachromatosis, and amiodarone therapy. Recommend correlation with clinical history and liver function tests. 5. No free fluid in the abdomen or pelvis. 6. Dense vascular calcification. Laboratory Results WBC 7.6 10^3/uL (4.0-10.0) 02/07/22 13:07 RBC 3.77 10^6/uL (4.1-5.3) L 02/07/22 13:07 Hgb 11.9 g/dL (11.5-15.3) 02/07/22 13:07 Hct 37.3 % (37.0-47.0) 02/07/22 13:07 MCV 98.9 fl (81-99) 02/07/22 13:07 MCH 31.6 pg (28.0-34.0) 02/07/22 13:07 MCHC 31.9 g/dL (30.0-36.0) 02/07/22 13:07 RDW 13.6 % (12.1-15.1) 02/07/22 13:07 Plt Count 209 10^3/cmm (130-400) 02/07/22 13:07 MPV 9.3 fL (7.4-10.4) 02/07/22 13:07 Neut % (Auto) 70.3 % 02/07/22 13:07 Lymph % (Auto) 16.3 % 02/07/22 13:07 [place] % (Auto) 8.6 % 02/07/22 13:07 Eos % (Auto) 4.0 % 02/07/22 13:07 Baso % (Auto) 0.4 % 02/07/22 13:07 Neut # (Auto) 5.32 10^3/uL (1.8-7.7) 02/07/22 13:07 Lymph # (Auto) 1.2 10^3/uL (0.8-4.8) 02/07/22 13:07 [place] # (Auto) 0.7 10^3/uL (0.2-0.9) 02/07/22 13:07 Eos # (Auto) 0.3 10^3/uL (0.0-0.8) 02/07/22 13:07 Baso # (Auto) 0.0 10^3/uL (0.0-0.1) 02/07/22 13:07 Nucleated RBC % (auto) 0 % 02/07/22 13:07 Nucleated RBCs # 0.0 /100WBC 02/07/22 13:07 Sodium 138 mmol/L (136-145) 02/07/22 13:07 Potassium 3.4 mmol/L (3.5-5.1) L 02/07/22 13:07 Chloride 102 mmol/L (98-107) 02/07/22 13:07 Carbon Dioxide 26 mmol/L (22-29) 02/07/22 13:07 Anion Gap 13.4 (5-19) 02/07/22 13:07 BUN 17 mg/dL (8-23) 02/07/22 13:07 Creatinine 1.1 mg/dL (0.5-0.9) H 02/07/22 13:07 GFR Calculation Not Reportable 02/07/22 13:07 Glucose 93 mg/dL (65-115) 02/07/22 13:07 Calculated Osmolality 287 mOsm/kg (285-295) 02/07/22 13:07 Calcium 9.0 mg/dL (8.5-10.5) 02/07/22 13:07 Total Bilirubin 0.6 mg/dL (0.15-1.2) 02/07/22 13:27 Direct Bilirubin 0.20 mg/dL (0.00-0.30) 02/07/22 13:27 AST 22 U/L (0-32) 02/07/22 13:27 ALT 20 U/L (0-33) 02/07/22 13:27 Alkaline Phosphatase 108 U/L (35-105) H 02/07/22 13:27 Total Protein 6.1 g/dL (6.6-8.7) L 02/07/22 13:27 Albumin 3.7 g/dL (3.5-5.2) 02/07/22 13:27 Globulin 2.4 g/dL (1.3-4.6) 02/07/22 13:27 Urine Color Red (Yellow) 02/07/22 12:34 Urine Appearance Cloudy (CLEAR) A 02/07/22 12:34 Urine pH 7 (5-7) 02/07/22 12:34 Ur Specific [place] 1.015 (1.005-1.030) 02/07/22 12:34 Urine Protein 1+ (Negative) H 02/07/22 12:34 Urine Glucose (UA) Norm (Normal) 02/07/22 12:34 Urine Ketones Negative (Negative) 02/07/22 12:34 Urine Blood 3+ (Negative) H 02/07/22 12:34 Urine Nitrate Negative (Negative) 02/07/22 12:34 Urine Bilirubin Neg (Negative) 02/07/22 12:34 Urine Urobilinogen Norm mg/dL (Negative) 02/07/22 12:34 Ur Leukocyte Esterase 2+ (Negative) H 02/07/22 12:34 Urine RBC Too numerous to cnt /hpf (0-2) H 02/07/22 12:34 Urine WBC None /hpf (0-5) 02/07/22 12:34 Ur Squamous Epith Cells None /hpf (0-5) 02/07/22 12:34 Amorphous Sediment Not Reportable 02/07/22 12:34 Urine Bacteria None /hpf (NONE) 02/07/22 12:34 Discharge Plan Discharge Patient Disposition: Home Clinical Impression: Hematuria, Abdominal pain, Abnormal CT scan Condition: Stable Prescriptions: No Action amlodipine 5 mg tablet 2.5 mg PO DAILY furosemide 40 mg tablet 40 mg PO BID nitroglycerin 0.4 mg tablet, sublingual 0.4 mg sublingual Q5M PRN (Reason: chest pain) Qty: 30 6RF Rx Instructions: do not exceed 3 doses per episode isosorbide mononitrate 60 mg tablet extended release 24 hr 60 mg PO BID amiodarone [Pacerone] 200 mg Tablet 200 mg PO DAILY Qty: 30 0RF cyanocobalamin (vitamin B-12) [Vitamin B-12] 1,000 mcg Tablet 1,000 mcg PO DAILY Qty: 30 0RF aspirin 81 mg Tablet,Delayed Release (Dr/Ec) 81 mg PO DAILY@08 Qty: 30 0RF albuterol sulfate 90 mcg/actuation Hfa Aerosol Inhaler 2 puff INHALATION QID PRN (Reason: Shortness Of Breath) atorvastatin 40 mg tablet 20 mg PO QPM famotidine 20 mg Tablet 20 mg PO BID losartan 50 mg tablet 50 mg PO BID 90 Days Qty: 180 0RF carvedilol 3.125 mg Tablet 3.125 mg PO BID 90 Days Qty: 180 0RF potassium chloride 20 mEq tablet extended release 20 meq PO BID cefdinir 300 mg capsule 300 mg PO Q12H Xarelto 15 mg tablet 15 mg PO QPM Rx Instructions: must administer with evening meal Discharge Orders: Discharge ED (Routine); Ordered 02/07/22 Ordered By: Mani Go Referrals: Betty Abreu MD [Primary Care Provider] - Discharge Diet: Usual diet Discharge Activity: Increase activity as tolerated Patient Instructions: Hematuria (ED), Abdominal Pain (ED) Activity Restrictions/Additional Instructions: Thank you for visiting the emergency department. You were seen and evaluated for blood in urine. The exact cause of your symptoms is unclear. As discussed I recommend holding your anticoagulation for 3 days and have repeat urinalysis in the outpatient setting. If blood in urine persists you will need urology follow-up, this can be arranged by your primary care provider. Incidentally there is increased noncontrast liver attenuation nonspecific but can be seen with liver fibrosis, hemochromatosis, and amiodarone therapy. Radiology recommended correlation with liver function tests which are pending at this time. Please follow-up with your primary care provider. Return to the emergency department for worsening abdominal pain, shortness of breath, chest pain, racing heart, lightheadedness or fainting, or anything else that you are concerned about and feel needs emergency department evaluation. 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
[2022-02-07 12:57] LABS: Add Urine Microscopic? YES; Bilirubin Urine Neg (Negative); Blood Urine 3+ (Negative); Glucose Urine UA Norm (Normal); Ketones Urine Negative (Negative); Leukocyte Esterase Urine 2+ (Negative); Nitrate Urine Negative (Negative); Protein Urine 1+ (Negative); Specific Gravity, Urine 1.015 (1.005-1.030); Urine Appearance Cloudy (CLEAR); Urine Color Red (Yellow); Urobilinogen Urine Norm (Negative); pH Urine 7 (5-7)
[2022-02-07 13:10] LABS: Add Urine Culture? Yes; RBC Urine TOO NUMEROUS TO CNT /hpf (0-2)
--- NOTE | 2022-02-07 13:19 | CT_ITS ---
WS: [id number] CT ABDOMEN PELVIS TECHNIQUE: Noncontrast CT of the abdomen and pelvis with coronal and sagittal reformatted images. CLINICAL INFORMATION: hematuria COMPARISON: CT July 04, 2020 DLP: 372.[address] scans at [facility] use at least one of these dose optimization techniques: automated e xposure control; mA and/or kV adjustment per patient size (includes targeted exams where dose is matc hed to clinical indication); or iterative reconstruction. FINDINGS: Atrophic LEFT kidney. No obstructing renal or ureteral calculi. No hydronephrosis in either kidney. Bladder appears normal. No bladder wall thickening. No free fluid in the abdomen or pelvis. Increased noncontrast liver attenuation. Liver otherwise appears normal. Sludge or tiny calculi in th e gallbladder. Normal noncontrast spleen. Splenic artery calcification. Normal GE junction. Adrenal g lands are normal. Fatty atrophy of the pancreas. Densely calcified abdominal aorta. No aneurysm. Normal sigmoid colon. No evidence of small or large bowel obstruction. Slight anterolisthesis L4 on L 5. CT/CT kidney stone [id number] IMPRESSION: 1. Small amount of sludge or tiny microcalculi in the gallbladder. No gallblad [place] wall thickening or pericholecystic fluid. 2. 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 No hydronephrosis in eithe r kidney. No obstructing renal or ureteral calculi. 3. Bladder is normal in appearance. No bladder wall thickening. 4. Increased noncontrast liver attenuation nonspecific but can be seen with li praveen fibrosis, hemachromatosis, and amiodarone therapy. Recommend correlation wi clinical history and liver function tests. 5. No free fluid in the abdomen or pelvis. 6. Dense vascular calcification.
[2022-02-07 13:21] VITALS: BP 151/66; O2SAT 99
[2022-02-07 13:50] LABS: Basophils % 0.4 %; Eosinophils # 0.3 10^3/uL (0.0-0.8); Hematocrit 37.3 % (37.0-47.0); Hemoglobin 11.9 g/dL (11.5-15.3); Lymphocytes # 1.2 10^3/uL (0.8-4.8); Lymphocytes % 16.3 %; Mean Corpuscular HGB Conc 31.9 g/dL (30.0-36.0); Mean Corpuscular Hemoglobin 31.6 pg (28.0-34.0); Mean Corpuscular Volume 98.9 fl (81-99); Mean Platelet Volume 9.3 fL (7.4-10.4); Monocytes # 0.7 10^3/uL (0.2-0.9); Monocytes % 8.6 %; Neutrophils # 5.32 10^3/uL (1.8-7.7); Neutrophils % 70.3 %; Nucleated Red Blood Cells % 0 %; Platelet Count 209 10^3/cmm (130-400); Red Blood Count 3.77 10^6/uL (4.1-5.3); Red Cell Distribution Width 13.6 % (12.1-15.1); White Blood Count 7.6 10^3/uL (4.0-10.0)
[2022-02-07 14:18] LABS: Anion Gap 13.4 (5-19); Blood Urea Nitrogen 17 mg/dL (8-23); Carbon Dioxide 26 mmol/L (22-29); Chloride 102 mmol/L (98-107); Glucose 93 mg/dL (65-115); Osmolality Calculated 287 mOsm/kg (285-295); Potassium 3.4 mmol/L (3.5-5.1); Sodium 138 mmol/L (136-145)
[2022-02-07 14:30] VITALS: BP 170/85; PULSE 60; O2SAT 99
[2022-02-07] MEDS: potassium chloride ER 20 mEq Tablet PO (14:41)
[2022-02-07 15:30] VITALS: BP 155/75; O2SAT 98
[2022-02-07 15:53] LABS: Alanine Aminotransferase 20 U/L (0-33); Albumin Level 3.7 g/dL (3.5-5.2); Alkaline Phosphatase 108 U/L (35-105); Aspartate Amino Transferase 22 U/L (0-32); Globulin 2.4 g/dL (1.3-4.6); Total Bilirubin 0.6 mg/dL (0.15-1.2); Total Protein 6.1 g/dL (6.6-8.7)
[2022-02-07 16:00] VITALS: BP 155/75; PULSE 56; O2SAT 99
== END 2022-02-07 16:01 | disposition home or self-care (01) ==
PROVIDERS: Emergency Provider Emergency Medicine; PCP Family Medicine
DX: R31.9 Hematuria, unspecified (principal); R93.5 Abnormal findings on diagnostic imaging of other abdominal regions, including retroperitoneum; I25.10 Atherosclerotic heart disease of native coronary artery without angina pectoris; I11.0 Hypertensive heart disease with heart failure; I50.9 Heart failure, unspecified; E78.5 Hyperlipidemia, unspecified
CPT/HCPCS: 36415; 74176; 80048; 80076; 81001; 85025; 87077; 87086; 87186; 99284

== ENCOUNTER → 2022-05-03 10:30 | Outpatient (BNVA) | payer MEDICARE, OTHER, SELFPAY | PROVIDERS: PCP Family Medicine; Visit Provider Internal Medicine Cardiovascular Disease | DX: I25.10 Atherosclerotic heart disease of native coronary artery without angina pectoris (principal); I34.0 Nonrheumatic mitral (valve) insufficiency; I10 Essential (primary) hypertension; I50.9 Heart failure, unspecified; I25.5 Ischemic cardiomyopathy; I48.92 Unspecified atrial flutter; E78.2 Mixed hyperlipidemia | CPT/HCPCS: 36415; 80053; 80061; 83880; 85025; 99214 ==

== ENCOUNTER → 2023-02-03 13:24 | Outpatient (BNVA) | payer MEDICARE, OTHER, SELFPAY | PROVIDERS: PCP Family Medicine; Visit Provider Internal Medicine Cardiovascular Disease | DX: I25.5 Ischemic cardiomyopathy (principal); I25.10 Atherosclerotic heart disease of native coronary artery without angina pectoris; I11.0 Hypertensive heart disease with heart failure; I50.20 Unspecified systolic (congestive) heart failure; I48.92 Unspecified atrial flutter; I34.0 Nonrheumatic mitral (valve) insufficiency; E78.2 Mixed hyperlipidemia; Z79.01 Long term (current) use of anticoagulants | CPT/HCPCS: 99214 ==

== ENCOUNTER 2023-04-16 14:36 | Inpatient (IN) | payer MEDICARE, OTHER, SELFPAY ==
[2023-04-16] VITALS (19 sets, daily range): BP systolic 99–167; BP diastolic 55–77; PULSE 60–78; RESP 13–20; TEMP 37.8–38.1; O2SAT 91–98; BMI 22.8; BMI 23.8
--- NOTE | 2023-04-16 14:46 | XRR_ITS ---
PROCEDURE INFORMATION: Exam: XR Right Foot Exam date and time: 04/16/2023 3:14 PM Age: 88 years old Clinical indication: Swelling or effusion of joint; Ankle; Additional info: Fall, pain TECHNIQUE: Imaging protocol: Radiologic exam of the right foot. Views: 1 or 2 views. COMPARISON: CR XR ankle RT 2V [id number] 04/16/2023 3:10 PM FINDINGS: Bones/joints: No acute fracture or dislocation. Degenerative changes. Soft tissues: Ankle soft tissue swelling. Vascular calcifications. XR/XR foot RT 2V [id number] IMPRESSION: No acute findings.
--- NOTE | 2023-04-16 14:46 | XRR_ITS ---
PROCEDURE INFORMATION: Exam: XR Right Ankle Exam date and time: 04/16/2023 3:10 PM Age: 88 years old Clinical indication: Swelling or effusion of joint; Ankle; Additional info: Fall, pain TECHNIQUE: Imaging protocol: Radiologic exam of the right ankle. Views: 1 or 2 views. COMPARISON: No relevant prior studies available. FINDINGS: Bones/joints: No fracture or dislocation.Remote medial malleolar posttraumatic changes. Soft tissues: Ankle soft tissue swelling. XR/XR ankle RT 2V [id number] IMPRESSION: Ankle soft tissue swelling without acute fracture.
--- NOTE | 2023-04-16 14:56 | XRR_ITS ---
PROCEDURE INFORMATION: Exam: XR Right Knee Exam date and time: 04/16/2023 3:12 PM Age: 88 years old Clinical indication: Injury or trauma; Fall; Work related; Blunt trauma; Knee; Right TECHNIQUE: Imaging protocol: Radiologic exam of the right knee. Views: 3 views. COMPARISON: CR XR ankle RT 2V [id number] 04/16/2023 3:10 PM FINDINGS: Bones/joints: At least moderate tricompartment degenerative changes with joint space narrowing worst in the medial compartment. no acute fracture or dislocation Soft tissues: No large effusion. XR/XR knee RT 3V* [id number] IMPRESSION: At least moderate tricompartment osteoarthritis.
--- NOTE | 2023-04-16 14:58 | ECG_ITS ---
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 Measurements Intervals [place] Rate: 58 P: 73 [place]: 213 QRS: -61 QRSD: 161 T: 100 QT: 500 QTc: 492 Interpretive Statements SINUS BRADYCARDIA WITH FIRST DEGREE AV BLOCK LEFT AXIS DEVIATION [QRS AXIS < -30] LEFT BUNDLE BRANCH BLOCK [120+ ms QRS DURATION, 80+ ms Q/S IN V1/V2, 85+ ms R IN I/aVL/V5/V6] Compared to ECG 03/23/2021 19:30:57 Left bundle-branch block now present Intraventricular conduction delay no longer present Electronically Signed On 04-16-2023 15:33:48 BUILDING ASSOCIATE by Blake Griffin M.D. [email or web address]
--- NOTE | 2023-04-16 14:58 | XRR_ITS ---
PROCEDURE INFORMATION: Exam: XR Chest Exam date and time: 04/16/2023 3:20 PM Age: 88 years old Clinical indication: Cough and dyspnea; Additional info: Dyspnea/cough TECHNIQUE: Imaging protocol: Radiologic exam of the chest. Views: 1 view. COMPARISON: CT chest con [id number] 04/30/2021 11:20 AM FINDINGS: Lungs: No consolidation. Pleural spaces: No pleural effusion. No pneumothorax. Heart/Mediastinum: No cardiomegaly. Bones/joints: No acute findings. XR/XR chest 1V portable [id number] IMPRESSION: No acute findings.
--- NOTE | 2023-04-16 15:21 | ED_ITS ---
HPI - Extremity Problem 2 General: Chief complaint: Extremity Injury, Lower Stated complaint: Syncope, right ankle swollen Time Seen by Provider: 04/16/23 14:47 Source: patient Mode of arrival: wheelchair History of Present Illness: 88-year-old female presents to the emerg ency room after a syncopal episode. Patient had gone to the restroom and been sitting for period of time and when she stood she got lightheaded and dizzy states her legs got rubbery and she fell. After she had fallen she was down for about 20 minutes and she called her son who came to assist her. She does have a history of atrial fibrillation she does not recall getting any palpitations per her son at the bedside she usually can tell fairly well when she gets an episode of RVR. She had bitten her tongue yesterday and had quite a bit of bleeding her son is a physician and treated with silver nitrate it also advised her to hold her aspirin and Xarelto that she usually takes so she has missed 1 dose. She is complaining of a little bit discomfort in her right knee more noticeable discomfort in her right ankle with some moderate swelling and ecchymosis. MD Complaint: joint swelling and joint pain Onset (ago): hour(s) (11 AM) Pain Consistency: constant Location: right and lower extremity (Ankle and knee) Quality: aching Radiation: none Relieving factors: nothing Exacerbating factors: nothing Associated symptoms: Reports arthralgias; Deny chest pain, fever(s), myalgias, rash or short of breath Review of Systems 2 Const: Denies: fever(s) or chills Card: Denies: chest pain Resp: Denies: dyspnea GI: Denies: abdominal pain : Denies: dysuria, urinary frequency or urinary urgency Musc: Reports: joint pain and joint swelling; Denies: neck pain or back pain Skin/Breast: Denies: rash PFSH ED 2 PFSH: Medical History Mitral regurgitation Ischemic cardiomyopathy NSVT (nonsustained ventricular tachycardia) Dissection of coronary artery Breast cancer Anemia CHF (congestive heart failure) CAD (coronary artery disease) Atrial flutter Hyperlipidemia HTN (hypertension) Surgical History H/O mastectomy S/P right coronary artery (RCA) stent placement Status post insertion of drug-eluting stent into left anterior descending (LAD) artery for coronary artery disease Hx of colonoscopy with polypectomy Family History Mother Alzheimer disease Father Stroke Atrial fibrillation Other CAD (coronary artery disease) Hyperlipidemia Hypertension Social History Smoking and tobacco/nicotine status: never used tobacco/nicotine Alcohol intake: never Substance/Drug Use: never Physical Exam 2 Const: GENERAL APPEARANCE: cooperative and comfortable O RIENTATION/CONSCIOUSNESS: Yes awake, Yes oriented to person, Yes oriented to place and Yes oriented to time HENMT: COMMON NORMALS: normocephalic, atraumatic and hearing grossly normal bilaterally HEAD & SCALP: normocephalic and atraumatic Resp: COMMON NORMALS: normal respiratory effort, No retractions, No use of accessory muscles and clear to auscultation bilaterally AUSCULTATION: clear to auscultation bilaterally Cardio: COMMON NORMALS: regular rate and No murmurs present (Cardio) RATE: regular rate RHYTHM: abnormal rhythm irregularly irregular GI: COMMON NORMALS: Soft to palpation and No hepatosplenomegaly present A USCULTATION: Yes normoactive bowel sounds PALPATION: Yes Soft to palpation, No Tenderness to palpation present (GI), No Guarding due to palpation present (GI) and Yes No hepatosplenomegaly present Extremity: COMMON NORMALS: normal to inspection, capillary refill normal, no clubbing, cyanosis or edema, no calf tenderness and no pedal edema Neuro: SENSORIUM/ORIENTATION: Yes oriented to person, Yes oriented to place and Yes oriented to time Skin: COMMON NORMALS: no rashes or lesions noted GENERAL SKIN EXAM: no rashes or lesions noted Course 2 Vital Signs: Vital signs: Vital Signs Pulse Rate 64 04/16/23 15:46 Respiratory Rate 17 04/16/23 15:46 Blood Pressure 144/64 04/16/23 15:46 Pulse Oximetry 98 04/16/23 15:46 Oxygen Delivery Me thod Room Air 04/16/23 15:46 MDM - Extremity (Nontraumatic) Medical Decision Making Patient is using a bedside commode and had another syncopal episode she bradycardia down into the 40s. She was briefly nonresponsive. Hemoccult of her stool was negative. She has a history of an EF of 35% she is on amiodarone and carvedilol which she did take today. Suspicious she may also have COVID her liver enzymes are slightly elevated and she is borderline lymphocytopenia. Will place her on observation discussed with hospitalist orders written Medical Records I reviewed the patient's medical records. Lab Data I reviewed the patient's lab results. 04/16/23 15:06 04/16/23 15:06 Radiology Impressions Ankle X-Ray 04/16/23 14:46 IMPRESSION: Ankle soft tissue swelling without acute fracture. Foot X-Ray 04/16/23 14:46 IMPRESSION: No acute findings. Laboratory Results WBC 6.54 10^3/uL (3.29-11.43) 04/16/23 15:06 RBC 3.77 10^6/uL (3.85-5.65) L 04/16/23 15:06 Hgb 12.50 g/dL (11.27-16.99) 04/16/23 15:06 Hct 38.2 % (36-47) 04/16/23 15:06 MCV 101.3 fl (85-98) H 04/16/23 15:06 MCH 33.2 pg (27-33) H 04/16/23 15:06 MCHC 32.7 g/dL (30-55) 04/16/23 15:06 RDW 14.3 % (12.1-15.1) 04/16/23 15:06 Plt Count 153 10^3/cmm (157-399) L 04/16/23 15:06 MPV 9.4 fL (7.4-10.4) 04/16/23 15:06 Neut % (Auto) 69.6 % 04/16/23 15:06 Lymph % (Auto) 14.7 % 04/16/23 15:06 [place] % (Auto) 14.7 % 04/16/23 15:06 Eos % (Auto) 0.2 % 04/16/23 15:06 Baso % (Auto) 0.5 % 04/16/23 15:06 Neut # (Auto) 4.56 10^3/uL (1.8-7.7) 04/16/23 15:06 Lymph # (Auto) 1.0 10^3/uL (0.8-4.8) 04/16/23 15:06 [place] # (Auto) 1.0 10^3/uL (0.2-0.9) H 04/16/23 15:06 Eos # (Auto) 0.0 10^3/uL (0.0-0.8) 04/16/23 15:06 Baso # (Auto) 0.0 10^3/uL (0.0-0.1) 04/16/23 15:06 Nucleated RBC % (auto) 0 % 04/16/23 15:06 Nucleated RBCs # 0.0 /100WBC 04/16/23 15:06 Sodium 138 mmol/L (136-145) 04/16/23 15:06 Potassium 4.0 mmol/L (3.5-5.1) 04/16/23 15:06 Chloride 99 mmol/L (98-107) 04/16/23 15:06 Carbon Dioxide 24 mmol/L (22-29) 04/16/23 15:06 Anion Gap 19.0 (5-19) 04/16/23 15:06 BUN 21 mg/dL (8-23) 04/16/23 15:06 Creatinine 1.4 mg/dL (0.5-0.9) H 04/16/23 15:06 GFR Calculation Not Reportable 04/16/23 15:06 Glucose 118 mg/dL (65-115) H 04/16/23 15:06 Calculated Osmolality 290 mOsm/kg (285-295) 04/16/23 15:06 Calcium 8.8 mg/dL (8.5-10.5) 04/16/23 15:06 Magnesium 2.2 mg/dL (1.7-2.3) 04/16/23 15:06 Total Bilirubin 0.7 mg/dL (0.15-1.2) 04/16/23 15:06 AST 145 U/L (0-32) H 04/16/23 15:06 ALT 140 U/L (0-33) H 04/16/23 15:06 Alkaline Phosphatase 109 U/L (35-105) H 04/16/23 15:06 Total Protein 6.5 g/dL (6.6-8.7) L 04/16/23 15:06 Albumin 3.7 g/dL (3.5-5.2) 04/16/23 15:06 Globulin 2.8 g/dL (1.3-4.6) 04/16/23 15:06 All radiology interpretation(s) finalized by discharge Discharge Plan Discharge Patient Disposition: Placed in Observation Clinical Impression: Syncope, Ankle sprain and strain Condition: Stable Prescriptions: No Action furosemide 40 mg tablet 40 mg PO BID isosorbide mononitrate 60 mg tablet extended release 24 hr 60 mg PO BID docusate sodium [Colace] 100 mg capsule 100 mg PO DAILY PRN (Reason: Constipation) nitroglycerin 0.4 mg tablet, sublingual 0.4 mg sublingual Q5M PRN (Reason: chest pain) Qty: 30 6RF Rx Instructions: do not exceed 3 doses per episode ferrous sulfate 325 mg (65 mg iron) tablet,delayed release (DR/EC) 325 mg PO BID amiodarone [Pacerone] 200 mg Tablet 200 mg PO DAILY Qty: 30 0RF cyanocobalamin (vitamin B-12) [Vitamin B-12] 1,000 mcg Tablet 1,000 mcg PO DAILY Qty: 30 0RF aspirin 81 mg Tablet,Delayed Release (Dr/Ec) 81 mg PO DAILY@08 Qty: 30 0RF albuterol sulfate 90 mcg/actuation Hfa Aerosol Inhaler 2 puff INHALATION QID PRN (Reason: Shortness Of Breath) famotidine 20 mg Tablet 20 mg PO BID losartan 50 mg tablet 50 mg PO BID 90 Days Qty: 180 0RF carvedilol 3.125 mg Tablet 3.125 mg PO BID 90 Days Qty: 180 0RF potassium chloride 20 mEq tablet extended release 20 meq PO BID latanoprost 0.005 % drops 1 drp ophthalmic (eye) BEDTIME atorvastatin 20 mg tablet 20 mg PO BEDTIME amlodipine 2.5 mg tablet 2.5 mg PO DAILY Xarelto 15 mg tablet 15 mg PO QPM Rx Instructions: must administer with evening meal Referrals: Betty Abreu MD [Primary Care Provider] - Coding Level of Care Code ED Stack Yield Engineer for Kolby Alvarez
[2023-04-16 15:34] LABS: Basophils % 0.5 %; Eosinophils % 0.2 %; Hematocrit 38.2 % (36-47); Lymphocytes % 14.7 %; Mean Corpuscular HGB Conc 32.7 g/dL (30-55); Mean Corpuscular Hemoglobin 33.2 pg (27-33); Mean Corpuscular Volume 101.3 fl (85-98); Mean Platelet Volume 9.4 fL (7.4-10.4); Monocytes % 14.7 %; Neutrophils # 4.56 10^3/uL (1.8-7.7); Neutrophils % 69.6 %; Nucleated Red Blood Cells % 0 %; Platelet Count 153 10^3/cmm (157-399); Red Blood Count 3.77 10^6/uL (3.85-5.65); Red Cell Distribution Width 14.3 % (12.1-15.1); White Blood Count 6.54 10^3/uL (3.29-11.43)
[2023-04-16 15:53] LABS: Alanine Aminotransferase 140 U/L (0-33); Albumin Level 3.7 g/dL (3.5-5.2); Alkaline Phosphatase 109 U/L (35-105); Aspartate Amino Transferase 145 U/L (0-32); Blood Urea Nitrogen 21 mg/dL (8-23); Calcium 8.8 mg/dL (8.5-10.5); Carbon Dioxide 24 mmol/L (22-29); Chloride 99 mmol/L (98-107); Globulin 2.8 g/dL (1.3-4.6); Glucose 118 mg/dL (65-115); Magnesium 2.2 mg/dL (1.7-2.3); Osmolality Calculated 290 mOsm/kg (285-295); Sodium 138 mmol/L (136-145); Total Bilirubin 0.7 mg/dL (0.15-1.2); Total Protein 6.5 g/dL (6.6-8.7)
--- NOTE | 2023-04-16 16:30 | ECG_ITS ---
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 Measurements Intervals [place] Rate: 55 P: 64 MN: 206 QRS: -58 QRSD: 161 T: 97 QT: 527 QTc: 505 Interpretive Statements SINUS BRADYCARDIA WITH SINUS ARRHYTHMIA LEFT AXIS DEVIATION [QRS AXIS < -30] LEFT BUNDLE BRANCH BLOCK [120+ ms QRS DURATION, 80+ ms Q/S IN V1/V2, 85+ ms R IN I/aVL/V5/V6] Compared to ECG 04/16/2023 15:08:28 First degree AV block no longer present Electronically Signed On 04-17-2023 7:10:40 AIRCRAFT WORKER by Blake Griffin M.D. [id number]
[2023-04-16] MEDS: sodium chloride 0.9% 500 ML 999 ML IV (16:34)
--- NOTE | 2023-04-16 16:56 | ECG_ITS ---
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 Measurements Intervals [place] Rate: 69 P: -24 ID: [id number] QRS: 118 QRSD: 172 T: -44 QT: 479 QTc: 514 Interpretive Statements SINUS RHYTHM RIGHT AXIS DEVIATION [QRS AXIS > 100] INTRAVENTRICULAR CONDUCTION DELAY [130+ ms QRS DURATION] Compared to ECG 04/16/2023 15:08:28 Right-axis deviation now present Intraventricular conduction delay now present Sinus bradycardia no longer present First degree AV block no longer present Left-axis deviation no longer present Left bundle-branch block no longer present Electronically Signed On 04-17-2023 7:09:45 GEOTHERMAL OPERATIONS ENGINEER by Blake Griffin M.D. [id number]
[2023-04-16 16:58] LABS: Adenovirus Not Detected (NOT DETECT); Chlamydia Pneumoniae Not Detected (NOT DETECT); Coronavirus 229E,HKU1,NL63,OC4 Not Detected (NOT DETECT); Human Metapneumovirus Not Detected (NOT DETECT); Human Rhinovirus/Enterovirus Not Detected (NOT DETECT); Influenza A Not Detected (NOT DETECT); Influenza A H1 Not Detected (NOT DETECT); Influenza A H1-2009 Not Detected (NOT DETECT); Influenza A H3 Not Detected (NOT DETECT); Influenza B Not Detected (NOT DETECT); Mycoplasma Pneumoniae Not Detected (NOT DETECT); Parainfluenza Virus Type 1 Not Detected (NOT DETECT); Parainfluenza Virus Type 2 Not Detected (NOT DETECT); Parainfluenza Virus Type 3 Not Detected (NOT DETECT); Parainfluenza Virus Type 4 Not Detected (NOT DETECT); Respiratory Syncytial Virus A Not Detected (NOT DETECT); Respiratory Syncytial Virus B Not Detected (NOT DETECT)
--- NOTE | 2023-04-16 17:16 | XRR_ITS ---
PROCEDURE INFORMATION: Exam: XR Right Hip Exam date and time: 04/16/2023 5:27 PM Age: 88 years old Clinical indication: Injury or trauma; Fall; Blunt trauma (contusions or hematomas); Right; Hip; Additional info: Fall, pain TECHNIQUE: Imaging protocol: Radiologic exam of the right hip. Views: 1 view hip with pelvis when performed. COMPARISON: CT kidney stone [id number] 02/07/2022 2:25 PM FINDINGS: Bones/joints: No fracture or dislocation. Moderate osteoarthritis. Soft tissues: No acute findings. Vascular calcifications. XR/XR hip RT 2-3V wo/w pel* [id number] IMPRESSION: Moderate osteoarthritis of the right hip.
--- NOTE | 2023-04-16 17:19 | P.HP_ITS ---
Providers/Chief Complaint 2 Admitting Physician: Kevin Rodríguez MD Primary Care Provider: Betty Abreu MD Chief Complaint: Syncope, right ankle swollen History of Present Illness Nika Abreu is a 88 year old female with a past medical history of hypertension, hyperlipidemia, CAD status post stenting to circumflex, with history of balloon angioplasty to LAD, history of coronary artery dissection, history of atrial fibrillation on Xarelto, history of left bundle branch block, history of moderate MR, breast cancer, patient lives at home by herself, is ambulatory, can carry out acute obesity living on her own, who presents to [facility] for a fall, with right ankle pain, syncopal episode. Patient tells me that she has been feeling okay recently, no significant recent hospitalizations, no significant health concerns, she has had some sinus congestion, some soreness in her back of her throat, no fevers, chills, no significant cough, no abdominal pain, no diarrhea. Patient tells me that this morning she was getting up, with plans on going to the restroom, she felt that her knees and her legs gave out, she did feel lightheaded and dizzy, her legs felt rubbery, and she fell, she is not 100% if she passed out or not, but she was on the ground for about 20 minutes, when she called her family members to come and her sister. She tells me she was on the floor she was alert and awake, she had right ankle pain, right thigh pain. She does tell me that she bit her tongue yesterday, she did have bleeding from the tip of her tongue, she got silver nitrate to it yesterday, her aspirin and Xarelto were on hold yesterday. Her only complaint right now is right thigh pain right ankle pain feeling really cold. Does have chills currently. No dysuria, hematuria but does have a history of UTIs. She reports that here in the emergency room, she actually got up to the commode to have a bowel movement, which she passed out, this was witnessed by family members, she was able to get back into bed with the help of family numbers, she did develop sinus bradycardia, transient hypotension, but subsequently resolved, alert and awake, currently alert oriented x 3, following all commands, denies any chest pain, no palpitation no facial droop no slurring of words no focal weakness, no focal paresthesias, no chest pain, no palpitations. Review of Systems 2 Const: Reports: fatigue; Denies: fever(s), chills or malaise Card: Reports: syncope; Denies: chest pain or palpitations Resp: Denies: dyspnea or non-productive cough GI: Reports: nausea; Denies: abdominal pain : Denies: flank pain or difficulty voiding Musc: Denies: neck pain Skin/Breast: Denies: rash Neuro: Reports: weakness in extremities; Denies: headache(s), numbness in extremities, dizziness or vertigo Psych: Denies: anxiety Endo: Denies: polyuria Medications/Allergies Home Medications Medication Instructions Recorded Confirmed Last Taken Type amiodarone 200 mg tablet (Pacerone) 200 mg PO DAILY #30 tabs 08/14/20 04/16/23 04/16/23 Rx aspirin 81 mg tablet,delayed 81 mg PO DAILY@08 #30 tabs 08/14/20 04/16/23 02/07/22 Rx release cyanocobalamin (vitamin B-12) 1,000 mcg PO DAILY #30 tabs 08/14/20 04/16/23 04/16/23 Rx 1,000 mcg tablet (Vitamin B-12) albuterol sulfate 90 mcg/actuation 2 puff inhalation QID PRN 03/23/21 04/16/23 04/30/21 05:30 History aerosol inhaler Shortness Of Breath famotidine 20 mg tablet 20 mg PO BID 04/30/21 04/16/23 04/16/23 History carvedilol 3.125 mg tablet 3.125 mg PO BID 90 days #180 tabs 05/01/21 04/16/23 04/16/23 Rx losartan 50 mg tablet 50 mg PO BID 90 days #180 tabs 05/01/21 04/16/23 04/16/23 Rx furosemide 40 mg tablet 40 mg PO BID 06/12/21 04/16/23 04/16/23 History potassium chloride 20 mEq 20 meq PO BID 06/12/21 04/16/23 04/16/23 History tablet,extended release isosorbide mononitrate 60 mg 60 mg PO BID 10/30/21 04/16/23 04/16/23 History tablet,extended release 24 hr rivaroxaban 15 mg tablet (Xarelto) 15 mg PO QPM 02/07/22 04/16/23 02/06/22 History docusate sodium 100 mg capsule 100 mg PO DAILY PRN Constipation 05/03/22 04/16/23 04/16/23 History (Colace) nitroglycerin 0.4 mg sublingual 0.4 mg sublingual Q5M PRN chest 05/03/22 04/16/23 Unknown Rx tablet pain #30 tabs ferrous sulfate 325 mg (65 mg 325 mg PO BID 02/03/23 04/16/23 04/16/23 History iron) tablet,delayed release amlodipine 2.5 mg tablet 2.5 mg PO DAILY 04/16/23 04/16/23 04/16/23 History atorvastatin 20 mg tablet 20 mg PO BEDTIME 04/16/23 04/16/23 04/15/23 History latanoprost 0.005 % eye drops 1 drp ophthalmic (eye) BEDTIME 04/16/23 04/16/23 04/15/23 History Allergies Allergy/AdvReac Type Severity Reaction Status Date / Time Penicillins Allergy Unknown Verified 04/16/23 15:25 Sulfa (Sulfonamide Allergy Unknown Verified 04/16/23 15:25 Antibiotics) PFSH Acute 2 PFSH: Medical History Mitral regurgitation Ischemic cardiomyopathy NSVT (nonsustained ventricular tachycardia) Dissection of coronary artery Breast cancer Anemia CHF (congestive heart failure) CAD (coronary artery disease) Atrial flutter Hyperlipidemia HTN (hypertension) Surgical History H/O mastectomy S/P right coronary artery (RCA) stent placement Status post insertion of drug-eluting stent into left anterior descending (LAD) artery for coronary artery disease Hx of colonoscopy with polypectomy Family History Mother Alzheimer disease Father Stroke Atrial fibrillation Other CAD (coronary artery disease) Hyperlipidemia Hypertension Social History Smoking and tobacco/nicotine status: never used tobacco/nicotine Alcohol intake: never Substance/Drug Use: never Vitals/I&O/Wt Last Vital Signs Pulse 64 04/16/23 15:46 Resp 17 04/16/23 15:46 BP 144/64 04/16/23 15:46 Pulse Ox 98 04/16/23 15:46 O2 Del Method Room Air 04/16/23 15:46 Weight last 48 hrs Weight 60.328 kg Physical Exam 2 Const: COMMON NORMALS: no acute distress and patient oriented x3 HENMT: COMMON NORMALS: normocephalic HEAD & SCALP: normocephalic Eye: COMMON NORMALS: Equal, round and reactive pupils present and EOMs intact bilaterally Neck/C-Spine: COMMON NORMALS: no JVD Resp: COMMON NORMALS: normal respiratory effort, No retractions, No use of accessory muscles and clear to auscultation bilaterally AUSCULTATION: clear to auscultation bilaterally Cardio: COMMON NORMALS: regular rate, regular rhythm, S1 normal heart sound present and S2 normal heart sound present RATE: regular rate RHYTHM: r egular rhythm HEART SOUNDS: S1 normal heart sound present and S2 normal heart sound present GI: COMMON NORMALS: Normal to inspection, nondistended, normoactive bowel sounds present, Soft to palpation and non-tender Extremity: COMMON NORMALS: no calf tenderness and no pedal edema Neuro: COMMON NORMALS: patient oriented x3, CN's II-XII intact bilaterally and moves all extremities Psych: COMMON NORMALS: mental status grossly normal Data 04/16/23 15:06 04/16/23 15:06 A&P Assessment and plan (1) COVID-19: (2) Syncope: (3) Ankle sprain and strain: (4) CAD (coronary artery disease): Qualifiers: Coronary Disease-Associated Artery/Lesion type: [place] artery [place] vs. transplanted heart: [place] heart Associated angina: without angina Qualified Code(s): I25.10 - Atherosclerotic heart disease of [place] coronary artery without angina pectoris (5) Mitral regurgitation: Plan Syncope, -This sounds like a vasovagal syncope ? However she does have underlying cardiac etiology CAD ischemic cardiomyopathy ? Serial EKGs, serial troponins, telemetry monitoring ? Gentle IV hydration 75 cc 250 mL ? Will hold her evening doses of blood pressure medications ? Check orthostatic vitals, ? Neurochecks, aspiration precautions, and a stroke scale Hypertension ? Continue home BP P medications tomorrow COVID-19 positivity, ? Does have complaints of sinus congestion, sore throat ? No shortness of breath complaints, lungs clear to auscultation bilaterally ?currently on room air ? We will hold off on remdesivir for now and steroids, ? Likely will need Paxlovid on discharge ?Pro-Blair, CRP, D-dimer, troponin series Right ankle pain ? On examination right ankle is swollen, erythematous, does have tenderness around the lateral malleolus,, ? X-ray no acute fracture, ? Hydrocodone for pain control, can ? Will continue to monitor closely, ? PT OT, ? If she continues to have pain, pain with ambulation, will consider placing her in a boot and crutches for least 6 to 8 weeks, ? CPK LORRAINE ? Likely secondary to dehydration, gentle IV hydration Transaminitis likely secondary to COVID-19, continue to monitor next Right thigh pain, will do x-ray of right hip Full code, ? Continue Xarelto for DVT prophylaxis Attestations 2 Medical Necessity Statement*: Patient requires hospitalization, for syncope, COVID-19, right ankle pain, outpatient observation Diagnoses COVID-19 U07.1 Syncope R55 Ankle sprain and strain S93.409A; S96.919A Coronary artery disease involving [place] coronary artery of [place] heart without angina pectoris I25.10 Coronary Disease-Associated Artery/Lesion type: [place] artery [place] vs. transplanted heart: [place] heart Associated angina: without angina Mitral regurgitation I34.0
[2023-04-16 17:21] LABS: SARS-COV-2 Detected (NOT DETECT)
[2023-04-16 17:26] LABS: Troponin(5th) Baseline 90 ng/L (0-10)
[2023-04-16 17:31] LABS: Troponin 5 2HR 90.19 ng/L (0-10); Troponin 5 2HR Delta 0.19 ABS# (0-10)
[2023-04-16 17:46] LABS: Lactic Sepsis W/Reflex 1.2 mmol/L (0.5-2.2)
[2023-04-16 17:54] LABS: Procalcitonin 0.12 ng/mL (0-0.5)
--- NOTE | 2023-04-16 18:40 | PC.NURSE ---
Patient arrived from ED via stretcher. Patient is awake, alert, and stable. Nurse will review orders and continue to monitor.
[2023-04-16 19:08] LABS: Creatine Phosphokinase 60 U/L (26-192); Thyroid Stimulating Hormone 2.93 uIU/mL (0.27-4.20)
[2023-04-16 19:11] LABS: D Dimer 4.76 ug/mLFEU (0-0.59)
[2023-04-16] MEDS: pantoprazole 40 mg SDV IVP (19:42)
[2023-04-16] MEDS: atorvastatin 40 mg Tablet 20 MG PO (19:43)
[2023-04-16] MEDS: rivaroxaban 10 mg Tablet 15 MG PO (19:44)
[2023-04-16] MEDS: acetaminophen 325 mg Tablet 650 MG PO (19:45)
[2023-04-16] MEDS: ferrous sulfate EC 325 mg Tablet PO (19:46)
[2023-04-16] MEDS: famotidine 20 mg Tablet PO (19:46)
[2023-04-16] MEDS: remdesivir 200 MG in sodium chloride 0.9% (100 ml) 60 ML 100 MG IV (19:56)
[2023-04-16] MEDS: sodium chloride 0.9% 1,000 ML 75 ML IV (20:15)
[2023-04-16 21:12] LABS: Troponin 5 6HR 77.98 ng/L (0-10); Troponin 5 6HR Delta -12.02 ng/L (0-12)
[2023-04-16 21:36] LABS: Adenovirus Not Detected (NOT DETECT); Chlamydia Pneumoniae Not Detected (NOT DETECT); Coronavirus 229E,HKU1,NL63,OC4 Not Detected (NOT DETECT); Human Metapneumovirus Not Detected (NOT DETECT); Human Rhinovirus/Enterovirus Not Detected (NOT DETECT); Influenza A Not Detected (NOT DETECT); Influenza A H1 Not Detected (NOT DETECT); Influenza A H1-2009 Not Detected (NOT DETECT); Influenza A H3 Not Detected (NOT DETECT); Influenza B Not Detected (NOT DETECT); Mycoplasma Pneumoniae Not Detected (NOT DETECT); Parainfluenza Virus Type 1 Not Detected (NOT DETECT); Parainfluenza Virus Type 2 Not Detected (NOT DETECT); Parainfluenza Virus Type 3 Not Detected (NOT DETECT); Parainfluenza Virus Type 4 Not Detected (NOT DETECT); Respiratory Syncytial Virus A Not Detected (NOT DETECT); Respiratory Syncytial Virus B Not Detected (NOT DETECT)
[2023-04-16] MEDS: latanoprost 0.005% Op Soln 2.5 mL Btl 1 DROP EYE-BOTH (21:38)
[2023-04-16 21:55] LABS: SARS-COV-2 Detected (NOT DETECT)
[2023-04-16 22:13] LABS: Add Urine Microscopic? YES; Bacteria Urine 1+ /hpf; Bilirubin Urine Neg (Negative); Blood Urine 2+ (Negative); Glucose Urine UA Norm (Normal); Ketones Urine Negative (Negative); Leukocyte Esterase Urine 1+ (Negative); Nitrate Urine Negative (Negative); Protein Urine Neg (Negative); RBC Urine 0-4 /hpf (0-2); Squamous Epithelial Cell Urine 0-4 /hpf (0-5); Urine Appearance SL Hazy (CLEAR); Urine Color Yellow (Yellow); Urobilinogen Urine Norm (Negative); WBC Urine 15-25 /hpf (0-5); pH Urine 5 (5-7)
[2023-04-16 22:14] LABS: Add Urine Culture? Yes
--- NOTE | 2023-04-16 22:56 | ECG_ITS ---
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 Measurements Intervals [place] Rate: 66 P: 87 [place]: 213 QRS: -42 QRSD: 173 T: 116 QT: 498 QTc: 523 Interpretive Statements SINUS RHYTHM WITH FIRST DEGREE AV BLOCK MARKED LEFT AXIS DEVIATION [QRS AXIS < -30] LEFT BUNDLE BRANCH BLOCK [120+ ms QRS DURATION, 80+ ms Q/S IN V1/V2, 85+ ms R IN I/aVL/V5/V6] Compared to ECG 04/16/2023 17:46:38 First degree AV block now present Left-axis deviation now present Left bundle-branch block now present Right-axis deviation no longer present Intraventricular conduction delay no longer present Electronically Signed On 04-17-2023 7:10:37 CONCRETE PAVING MACHINE OPERATOR by Blake Griffin M.D. [id number]
[2023-04-17] VITALS (19 sets, daily range): BP systolic 113–169; BP diastolic 54–80; PULSE 61–85; RESP 15–22; TEMP 36.6–37.8; O2SAT 93–98
[2023-04-17] MEDS: acetaminophen 325 mg Tablet 650 MG PO ×3 (04:52→23:24)
[2023-04-17 05:23] LABS: Basophils % 0.2 %; Hematocrit 35.1 % (36-47); Lymphocytes # 0.6 10^3/uL (0.8-4.8); Lymphocytes % 11.5 %; Mean Corpuscular HGB Conc 32.2 g/dL (30-55); Mean Corpuscular Hemoglobin 32.5 pg (27-33); Mean Corpuscular Volume 100.9 fl (85-98); Mean Platelet Volume 9.9 fL (7.4-10.4); Monocytes # 0.7 10^3/uL (0.2-0.9); Neutrophils # 4.16 10^3/uL (1.8-7.7); Neutrophils % 75.9 %; Nucleated Red Blood Cells % 0 %; Platelet Count 134 10^3/cmm (157-399); Red Blood Count 3.48 10^6/uL (3.85-5.65); Red Cell Distribution Width 14.3 % (12.1-15.1); White Blood Count 5.48 10^3/uL (3.29-11.43)
[2023-04-17 05:43] LABS: Alanine Aminotransferase 215 U/L (0-33); Albumin Level 3.5 g/dL (3.5-5.2); Alkaline Phosphatase 97 U/L (35-105); Blood Urea Nitrogen 14 mg/dL (8-23); Calcium 8.6 mg/dL (8.5-10.5); Carbon Dioxide 23 mmol/L (22-29); Chloride 104 mmol/L (98-107); Globulin 2.6 g/dL (1.3-4.6); Glucose 116 mg/dL (65-115); Magnesium 2.1 mg/dL (1.7-2.3); Osmolality Calculated 287 mOsm/kg (285-295); Phosphorus 2.5 mg/dL (2.5-4.5); Sodium 138 mmol/L (136-145); Total Bilirubin 0.6 mg/dL (0.15-1.2); Total Protein 6.1 g/dL (6.6-8.7)
[2023-04-17 05:47] LABS: Anion Gap 14.5 (5-19); Aspartate Amino Transferase 182 U/L (0-32); Potassium 3.5 mmol/L (3.5-5.1)
[2023-04-17 05:48] LABS: NT Pro B Type Natriuretic Pept 2331 pg/mL (0-450)
[2023-04-17] MEDS: losartan 50 mg Tablet PO ×2 (08:55→18:28)
[2023-04-17] MEDS: ferrous sulfate EC 325 mg Tablet PO ×2 (08:55→18:29)
[2023-04-17] MEDS: isosorbide mononitrate ER 60 mg Tablet PO ×2 (08:55→18:27)
[2023-04-17] MEDS: famotidine 20 mg Tablet PO ×2 (08:55→18:28)
[2023-04-17] MEDS: amlodipine 5 mg Tablet 2.5 MG PO (08:56)
[2023-04-17] MEDS: aspirin 81 mg EC Tablet PO (08:56)
[2023-04-17] MEDS: potassium chloride ER 20 mEq Tablet PO ×2 (08:56→18:29)
[2023-04-17] MEDS: amiodarone 200 mg Tablet PO (08:56)
[2023-04-17] MEDS: carvedilol 3.125 mg Tablet PO ×2 (08:56→18:28)
[2023-04-17] MEDS: cyanocobalamin 1,000 mcg Tablet 1000 MCG PO (08:56)
[2023-04-17] MEDS: FUROsemide 10 mg/mL SDV 2mL 20 MG IVP (10:39)
--- NOTE | 2023-04-17 10:51 | PC.NURSE ---
Lasix given per order at this time ... head of bed elevated
--- NOTE | 2023-04-17 13:15 | PM.CONSULT ---
Providers/Reason For Consult Consulting Physician/Specialty*: Sacha Dye.P.M./podiatry Reason for Consult*: Right ankle pain Attending Physician: Gurpreet Herrera MD Primary Care Provider: Betty Abreu MD History of Present Illness History of Present Illness Nika Abreu is a 88 year old female who presented to the emergency department on 04/16/2023 after syncopal episode. Patient states that she stood up too fast got lightheaded and dizzy and she felt like her legs gave out from underneath her. She sustained an injury to the right ankle during the fall. She is able to bear weight on the right foot. However, weightbearing is more comfortable when she is partial weightbearing to the heel. Patient has multiple comorbidities including hypertension, CAD and is status post stenting and angioplasty. She was admitted to the ICU for further workup and evaluation. Podiatry was consulted to evaluate the right ankle and provide recommendations for treatment. Review of Systems General: Reports: 10 or more systems reviewed and unremarkable except in HPI and below Const: Denies: fever(s) or chills Eyes: Denies: change in vision or blurry vision Card: Denies: chest pain, palpitations or irregular heart rhythm Resp: Denies: dyspnea GI: Denies: abdominal pain, nausea or vomiting Musc: Reports: extremity pain, extremity swelling and limited range of motion Neuro: Denies: numbness in extremities or weakness in extremities Medications/Allergies Home Medications Medication Instructions Recorded Confirmed Last Taken Type amiodarone 200 mg tablet (Pacerone) 200 mg PO DAILY #30 tabs 08/14/20 04/16/23 04/16/23 Rx aspirin 81 mg tablet,delayed 81 mg PO DAILY@08 #30 tabs 08/14/20 04/16/23 02/07/22 Rx release cyanocobalamin (vitamin B-12) 1,000 mcg PO DAILY #30 tabs 08/14/20 04/16/23 04/16/23 Rx 1,000 mcg tablet (Vitamin B-12) albuterol sulfate 90 mcg/actuation 2 puff inhalation QID PRN 03/23/21 04/16/23 04/30/21 05:30 History aerosol inhaler Shortness Of Breath famotidine 20 mg tablet 20 mg PO BID 04/30/21 04/16/23 04/16/23 History carvedilol 3.125 mg tablet 3.125 mg PO BID 90 days #180 tabs 05/01/21 04/16/23 04/16/23 Rx losartan 50 mg tablet 50 mg PO BID 90 days #180 tabs 05/01/21 04/16/23 04/16/23 Rx furosemide 40 mg tablet 40 mg PO BID 06/12/21 04/16/23 04/16/23 History potassium chloride 20 mEq 20 meq PO BID 06/12/21 04/16/23 04/16/23 History tablet,extended release isosorbide mononitrate 60 mg 60 mg PO BID 10/30/21 04/16/23 04/16/23 History tablet,extended release 24 hr rivaroxaban 15 mg tablet (Xarelto) 15 mg PO QPM 02/07/22 04/16/23 02/06/22 History docusate sodium 100 mg capsule 100 mg PO DAILY PRN Constipation 05/03/22 04/16/23 04/16/23 History (Colace) nitroglycerin 0.4 mg sublingual 0.4 mg sublingual Q5M PRN chest 05/03/22 04/16/23 Unknown Rx tablet pain #30 tabs ferrous sulfate 325 mg (65 mg 325 mg PO BID 02/03/23 04/16/23 04/16/23 History iron) tablet,delayed release amlodipine 2.5 mg tablet 2.5 mg PO DAILY 04/16/23 04/16/23 04/16/23 History atorvastatin 20 mg tablet 20 mg PO BEDTIME 04/16/23 04/16/23 04/15/23 History latanoprost 0.005 % eye drops 1 drp ophthalmic (eye) BEDTIME 04/16/23 04/16/23 04/15/23 History Allergies Allergy/AdvReac Type Severity Reaction Status Date / Time Penicillins Allergy Unknown Verified 04/16/23 15:25 Sulfa (Sulfonamide Allergy Unknown Verified 04/16/23 15:25 Antibiotics) Current Medications Generic Name Dose Route Start Last Admin Trade Name Freq PRN Reason Stop Dose Admin Acetaminophen 650 mg 04/16/23 18:23 04/17/23 04:52 Acetaminophen 325 Mg Tablet PO 650 mg Q6H PRN Administration Mild/Mod Pain Or Temp >/= 101 Amiodarone HCl 200 mg 04/17/23 09:00 04/17/23 08:56 Amiodarone 200 Mg Tablet PO 200 mg DAILY IGOR Administration Amlodipine Besylate 2.5 mg 04/17/23 09:00 04/17/23 08:56 Amlodipine 5 Mg Tablet PO 2.5 mg DAILY IGOR Administration Aspirin 81 mg 04/17/23 08:00 04/17/23 08:56 Aspirin 81 Mg Ec Tablet PO 81 mg DAILY@08 IGOR Administration Atorvastatin Calcium 20 mg 04/16/23 21:00 04/16/23 19:43 Atorvastatin 40 Mg Tablet PO 20 mg BEDTIME IGOR Administration Carvedilol 3.125 mg 04/17/23 09:00 04/17/23 08:56 Carvedilol 3.125 Mg Tablet PO 3.125 mg BID IGOR Administration Cyanocobalamin 1,000 mcg 04/17/23 09:00 04/17/23 08:56 Cyanocobalamin 1,000 Mcg Tablet PO 1,000 mcg DAILY IGOR Administration Famotidine 20 mg 04/16/23 18:23 04/17/23 08:55 Famotidine 20 Mg Tablet PO 20 mg BID IGOR Administration Ferrous Sulfate 325 mg 04/16/23 18:23 04/17/23 08:55 Ferrous Sulfate Ec 325 Mg Tablet PO 325 mg BID IGOR Administration Isosorbide Mononitrate 60 mg 04/17/23 09:00 04/17/23 08:55 Isosorbide Mononitrate Er 60 Mg Tablet PO 60 mg BID IGOR Administration Latanoprost 1 drop 04/16/23 21:00 04/16/23 21:38 Latanoprost 0.005% Op Soln 2.5 Ml Btl EYE-BOTH 1 drop BEDTIME IGOR Administration Losartan Potassium 50 mg 04/17/23 09:00 04/17/23 08:55 Losartan 50 Mg Tablet PO 50 mg BID IGOR Administration Pantoprazole Sodium 40 mg 04/16/23 18:23 04/16/23 19:42 Pantoprazole 40 Mg Sdv IVP 40 mg Q24H IGOR Administration Potassium Chloride 20 meq 04/17/23 09:00 04/17/23 08:56 Potassium Chloride Er 20 Meq Tablet PO 20 meq BID IGOR Administration Rivaroxaban 15 mg 04/16/23 19:00 04/16/23 19:44 Rivaroxaban 10 Mg Tablet PO 15 mg QPM IGOR Administration PFSH Acute PFSH: Medical History Mitral regurgitation Ischemic cardiomyopathy NSVT (nonsustained ventricular tachycardia) Dissection of coronary artery Breast cancer Anemia CHF (congestive heart failure) CAD (coronary artery disease) Atrial flutter Hyperlipidemia HTN (hypertension) Surgical History H/O mastectomy S/P right coronary artery (RCA) stent placement Status post insertion of drug-eluting stent into left anterior descending (LAD) artery for coronary artery disease Hx of colonoscopy with polypectomy Family History Mother Alzheimer disease Father Stroke Atrial fibrillation Other CAD (coronary artery disease) Hyperlipidemia Hypertension Social History Smoking and tobacco/nicotine status: never used tobacco/nicotine Alcohol intake: never Substance/Drug Use: never Vitals/I&O/Wt Last Vital Signs Temp 99.3 F 04/17/23 12:03 Pulse 85 04/17/23 08:46 Resp 16 04/17/23 08:00 BP 169/54 04/17/23 08:55 Pulse Ox 95 04/17/23 08:00 O2 Del Method Room Air 04/17/23 08:00 04/16/23 04/17/23 04/17/23 22:59 06:59 14:59 Intake Total 750 / 750 250 / 1000 1340 / 1340 Output Total 100 / 100 300 / 400 Balance 650 / 650 -50 / 600 1340 / 1340 Weight last 48 hrs Weight 139 lb Weight 139 lb Weight 133 lb Physical Exam Narrative: BELOW IS A FOCUSED LOWER EXTREMITY EXAM GENERAL: A&O x 3 VASCULAR: DP/PT pulses palpable 2/4 with CFT intact, <3seconds to distal digits DERMATOLOGICAL: Skin turgor and temperature is within normal limits. No interdigital maceration noted. MUSCULOSKELETAL: Tenderness with palpation of medial malleolus right ankle. Tenderness to palpation of the deltoid ligament. Positive eversion stress test with pain elicited. Ankle joint and subtalar joint range of motion within normal limits without pain or crepitus. NEUROLOGICAL: Neurological sensation to the affected foot and ankle is present through L4-S1 dermatomes with no hyper/hypoesthesias, negative Tinel or Valleix's sign IMAGING: Three-view x-rays right ankle taken in the emergency department were personally reviewed by me which show increased medial clear space of the mortise. No readily visualized fracture. Osseous bodies noted about the medial malleolus likely attributed to prior injury. Lateral projection shows incongruency of ankle joint against gravity with increased gapping anteriorly. Data 04/17/23 04:58 04/17/23 04:58 A&P Assessment and plan (1) Ankle sprain and strain: (2) Sprain of right ankle: Plan -Right ankle sprain -Labs and vitals reviewed -VSS -Imaging: X-rays right ankle showed concern for possible soft tissue compromise from right ankle sprain. However, talus is well-positioned within the mortise with no fractures visualized -Diet: Okay for diet from podiatry stand -No surgical intervention from podiatry during this admission. Right ankle is overall stable. Patient sustained a grade 2 ankle sprain to the right ankle deltoid ligament. This can be treated nonoperatively. Recommend stabilization of the right ankle with either a cam boot or a PTT supinator brace. Cam boot may be too bulky and may impair patient's mobility in the outpatient setting which would predispose her to increased fall risk. Recommend physical therapy evaluation. Supinator brace would be appropriate based on my evaluation if well-tolerated -Weight bearing: Weightbearing as tolerated to right lower extremity in PTT supinator brace or cam boot -Discharge plan: Patient is okay to discharge home from podiatry standpoint with right ankle stabilized as described above. Recommend follow-up in the outpatient setting with Dr. Alegre within 2 weeks of discharge -Podiatry will continue to round on patient while inpatient and provide recommendations Coding Level of Care Code Acute Code for [facility] Fwd Diagnoses Ankle sprain and strain S93.409A; S96.919A Sprain of right ankle S93.401A
--- NOTE | 2023-04-17 13:43 | PM.PN ---
Subjective Subjective: Patient was seen this morning, she does complain of sinus congestion and sinus pressure, sore throat, no fevers, does report chills and feeling cold, she is COVID-19 positive as she is at high risk of progression she was started on remdesivir, she continues to complain of right ankle pain and swelling, will have PT OT work with her discussed consultation with orthopedic service, spoke to Dr. Nolasco will consult, discussed pain control, she denies any shortness of breath, Vitals/I&O/Wt Last Vital Signs Temp 99.3 F 04/17/23 12:03 Pulse 85 04/17/23 08:46 Resp 16 04/17/23 08:00 BP 169/54 04/17/23 08:55 Pulse Ox 95 04/17/23 08:00 O2 Del Method Room Air 04/17/23 08:00 04/16/23 04/17/23 04/17/23 22:59 06:59 14:59 Intake Total 750 / 750 250 / 1000 1340 / 1340 Output Total 100 / 100 300 / 400 Balance 650 / 650 -50 / 600 1340 / 1340 Weight last 48 hrs Weight 63.049 kg Weight 63.049 kg Weight 60.328 kg Physical Exam Const: COMMON NORMALS: no acute distress and patient oriented x3 Resp: COMMON NORMALS: normal respiratory effort, No retractions, No use of accessory muscles and clear to auscultation bilaterally AUSCULTATION: clear to auscultation bilaterally Cardio: COMMON NORMALS: regular rate, regular rhythm, S1 normal heart sound present and S2 normal heart sound present RATE: regular rate RHYTHM: regular rhythm HEART SOUNDS: S1 normal heart sound present and S2 normal heart sound present GI: COMMON NORMALS: Normal to inspection, nondistended, normoactive bowel sounds present and non-tender Extremity: COMMON NORMALS: no pedal edema NARRATIVE EXTREMITY EXAM: Right ankle significantly swollen, has medial and lateral malleolar pain on palpation, pain with range of motion Neuro: COMMON NORMALS: patient oriented x3 Psych: COMMON NORMALS: mental status grossly normal Data 04/17/23 04:58 04/17/23 04:58 A&P Assessment and plan (1) COVID-19: (2) Syncope: (3) Ankle sprain and strain: (4) CAD (coronary artery disease): Qualifiers: Coronary Disease-Associated Artery/Lesion type: [place] artery [place] vs. transplanted heart: [place] heart Associated angina: without angina Qualified Code(s): I25.10 - Atherosclerotic heart disease of [place] coronary artery without angina pectoris (5) Mitral regurgitation: Plan Syncope, -This sounds like a vasovagal syncope ? However she does have underlying cardiac etiology CAD ischemic cardiomyopathy ? Serial EKGs no acute ST-T wave changes serial troponins no significant delta troponin, telemetry monitoring ? Off fluids ? Check orthostatic vitals, ? Neurochecks, aspiration precautions, and a stroke scale Hypertension ? Continue home BP P medications COVID-19 positivity, ? Does have complaints of sinus congestion, sore throat ? No shortness of breath complaints, lungs clear to auscultation bilaterally ?currently on room air ? As she is high risk of progression to severe COVID, COVID symptoms are mild to moderate, will start her on remdesivir she received loading dose yesterday continue 100 mg IV every 24 hours starting today -D-dimer 4.72, no chest pain, no shortness of breath, is on room air Right ankle pain ? On examination right ankle is swollen, erythematous, does have tenderness around the lateral malleolus,, ? X-ray no acute fracture, ? Hydrocodone for pain control, can ? Will continue to monitor closely, ? PT OT, ? Consult Dr. Codey PETERS ? Likely secondary to dehydration, resolving Transaminitis likely secondary to COVID-19, continue to monitor Right thigh pain, will do x-ray of right hip, within normal limits Full code, ? Continue Xarelto for DVT prophylaxis Attestations Medical Necessity Statement*: Patient requires hospitalization for syncope, hypertension, COVID-19, right ankle pain, LORRAINE, transaminitis Diagnoses COVID-19 U07.1 Syncope R55 Ankle sprain and strain S93.409A; S96.919A Coronary artery disease involving [place] coronary artery of [place] heart without angina pectoris I25.10 Coronary Disease-Associated Artery/Lesion type: [place] artery [place] vs. transplanted heart: [place] heart Associated angina: without angina Mitral regurgitation I34.0
--- NOTE | 2023-04-17 15:03 | PC.NURSE ---
report given and transfer to med surg at this time .....
[2023-04-17] MEDS: remdesivir 100 MG in sodium chloride 0.9% (100 ml) 80 ML IV (18:27)
[2023-04-17] MEDS: rivaroxaban 10 mg Tablet 15 MG PO (18:28)
[2023-04-17] MEDS: pantoprazole 40 mg SDV IVP (18:48)
[2023-04-17] MEDS: atorvastatin 40 mg Tablet 20 MG PO (20:41)
[2023-04-17] MEDS: FUROsemide 40 mg Tablet PO (20:41)
[2023-04-17] MEDS: latanoprost 0.005% Op Soln 2.5 mL Btl 1 DROP EYE-BOTH (20:41)
[2023-04-18] VITALS (8 sets, daily range): BP systolic 112–126; BP diastolic 61–72; PULSE 58–64; RESP 16–18; TEMP 36.7–37.2; O2SAT 93–97
[2023-04-18] MEDS: FUROsemide 40 mg Tablet PO (06:20)
[2023-04-18] MEDS: cetylpyridinium Lozenge 1 EACH MUCOUS MEM (06:26)
[2023-04-18 06:34] LABS: Basophils % 0.2 %; Eosinophils % 0.6 %; Hematocrit 31.1 % (36-47); Lymphocytes % 20.4 %; Mean Corpuscular HGB Conc 32.5 g/dL (30-55); Mean Corpuscular Hemoglobin 32.6 pg (27-33); Mean Corpuscular Volume 100.3 fl (85-98); Mean Platelet Volume 9.9 fL (7.4-10.4); Monocytes # 0.7 10^3/uL (0.2-0.9); Monocytes % 14.9 %; Neutrophils # 3.16 10^3/uL (1.8-7.7); Neutrophils % 63.7 %; Nucleated Red Blood Cells % 0 %; Platelet Count 136 10^3/cmm (157-399); Red Cell Distribution Width 14.2 % (12.1-15.1); White Blood Count 4.96 10^3/uL (3.29-11.43)
[2023-04-18 07:11] LABS: Alanine Aminotransferase 239 U/L (0-33); Alkaline Phosphatase 85 U/L (35-105); Anion Gap 16.6 (5-19); Aspartate Amino Transferase 167 U/L (0-32); Blood Urea Nitrogen 18 mg/dL (8-23); Calcium 8.4 mg/dL (8.5-10.5); Carbon Dioxide 23 mmol/L (22-29); Chloride 102 mmol/L (98-107); Globulin 2.5 g/dL (1.3-4.6); Glucose 97 mg/dL (65-115); NT Pro B Type Natriuretic Pept 2590 pg/mL (0-450); Osmolality Calculated 288 mOsm/kg (285-295); Phosphorus 2.3 mg/dL (2.5-4.5); Potassium 3.6 mmol/L (3.5-5.1); Sodium 138 mmol/L (136-145); Total Bilirubin 0.7 mg/dL (0.15-1.2); Total Protein 5.5 g/dL (6.6-8.7)
--- NOTE | 2023-04-18 07:30 | PC.SOCIAL ---
Pg 2 IMM Explained to pt Pg 2 IMM. No questions voiced. Provided pt a copy. Initialed, dated, & timed a copy & placed in chart.
[2023-04-18] MEDS: amlodipine 5 mg Tablet 2.5 MG PO (08:21)
[2023-04-18] MEDS: cyanocobalamin 1,000 mcg Tablet 1000 MCG PO (08:21)
[2023-04-18] MEDS: aspirin 81 mg EC Tablet PO (08:21)
[2023-04-18] MEDS: potassium chloride ER 20 mEq Tablet PO (08:22)
[2023-04-18] MEDS: carvedilol 3.125 mg Tablet PO (08:22)
[2023-04-18] MEDS: ferrous sulfate EC 325 mg Tablet PO (08:22)
[2023-04-18] MEDS: losartan 50 mg Tablet PO (08:22)
[2023-04-18] MEDS: famotidine 20 mg Tablet PO (08:22)
[2023-04-18] MEDS: amiodarone 200 mg Tablet PO (08:22)
[2023-04-18] MEDS: isosorbide mononitrate ER 60 mg Tablet PO (08:22)
[2023-04-18 09:10] LABS: Ferritin 310 ng/mL (15-150); Iron 25 ug/dL (37-145); Percent Saturation 14.2 % (20-50); Total Iron Binding Capacity 176 mcg/dl; Unsaturated Iron Binding 151 ug/dL (112-347)
--- NOTE | 2023-04-18 09:12 | PC.CHAP ---
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 [] Patient/Family/Request visit [] Outpatient visit [] Follow-up visit [] Physician referral [] Code/Alert [x] Routine visit [] Staff referral [] Actively dying [] Patient sleeping [] Family support [] [] Out of room [] Palliative care [] [] Receiving care in room [] Pre-surgical visit [] Trauma [] Long length of stay [] ICU visit [] Other: Relational/Emotional Strength [x] Patient feels connected with others/family/visitors/staff [] Distress [] Loneliness/isolation [] Abandonment Spirituality of Patient [x] Person of Nerissa [] Attends Presybeterian of their Nerissa [x] Believes in Prayer [] Reads Bible or Caodaism materials [] There are Spiritual issues to be addressed Briquetting Machine Operator Interventions [x] Prayer [x] Active listening [] Non-anxious presence [x] Spiritual/emotional support [] Crisis/trauma care [] Spiritual counseling [] Bereavement support [] Provided bereavement packet [] Provided Bible/devotional materials [] Provided toy/stuffed animal, coloring book to patient or family member [] Provided Communion [] Anointing/[place] [] Salvation [x] Completed spiritual assessment [] Other: Impact on Illness or Injury [] Angry [] Fearful [] Anxious [] Often cries [] Exhaustion [] Unable to work [] Unable to attend jew [] Unable to walk/stand [] Unable to read [] Unable to drive [] Unable to eat/drink [] Unable to sleep [] Unable to be with family [] Patient intubated [] Other: Summary Time spent with patient 5 min
--- NOTE | 2023-04-18 10:18 | MR_ITS ---
WS: [id number] EXAMINATION: MR ankle RT wo con* [id number] ORDER DATE: 04/18/2023 11:19 AM COMPARISON: None. HISTORY: right and lateral maleolar pain CONTRAST: None. TECHNIQUE: Axial proton density fat sat, axial T1, sagittal proton density, sagittal STIR, coronal T2 fat sat, and coronal T1 sequences performed. FINDINGS: Osteopenia. Diffuse soft tissue edema lower leg and ankle. Ankle mortise appears intact. Plantar calc aneal spurring. Chronic appearing avulsion fractures at the tip of the medial malleolus. 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 Distal Achilles appe ars intact. Small amount of edema with tiny nondisplaced vertically oriented fracture involving the distal fibula extending into the posterior lateral malleolus. Tiny nondisplaced fracture involving the lateral asp ect of the posterior malleolus with a small amount of edema. Chronic erosive changes involving the tip of the lateral malleolus. Tenosynovitis involving the peron eal tendons. Extensor compartment tendons are intact. Tenosynovitis involving the flexor compartment tendons. Talar dome is intact. Advanced degenerative changes at the talonavicular and talocalcaneal articulati ons with subchondral cystic change. Tibial plafond appears intact. Normal cuboid. Base of the fifth metatarsal appears normal. No other visualized fractures. IMPRESSION: 1. Tiny nondisplaced vertically oriented hairline fracture with edema involving the distal fibula ex tending into the posterior lateral malleolus. Associated edema. 2. Tiny nondisplaced fracture involving the lateral aspect of the posterior malleolus with a small a mount of edema. 3. Diffuse edema involving the lower leg and foot subcutaneous soft tissues. 4. Tenosynovitis involving the peroneal tendons and flexor compartment tendons. 5. Advanced degenerative change involving the hindfoot and midfoot articulations. 6. Ankle mortise remains intact. 7. Chronic avulsion fractures involving the tip of the medial malleolus.
[2023-04-18 12:44] LABS: Hematocrit 32.2 % (36-47)
--- NOTE | 2023-04-18 12:49 | P.PN_ITS ---
Subjective 2 Subjective: Patient was seen this morning, patient's daughter is at bedside, she tells me that her sinus congestion, has improved, no significant cough no fevers, her chills have improved, no lightheadedness, dizziness, in terms of her ambulation she continues to have significant right ankle pain, pain with dorsi and plantarflexion, pain with inversion eversion, she is very hesitant about bearing weight in that right foot, on examination her Johnston sign was negative, significant weakness with dorsi and plantarflexion of right foot, she has a gel brace in place, she also has significant pain with inversion eversion, pain at distal fibula upon palpation, she is very hesitant about motion, I am very suspicious that she is either had a ligamentous tear or hairline fracture, would consider doing an MRI, will discuss with PT OT, continue rehab Vitals/I&O/Wt Last Vital Signs Temp 98.0 F 04/18/23 12:00 Pulse 58 L 04/18/23 12:00 Resp 16 04/18/23 12:00 BP 112/68 04/18/23 12:00 Pulse Ox 97 04/18/23 12:00 O2 Del Method Room Air 04/18/23 12:00 04/17/23 04/18/23 04/18/23 22:59 06:59 14:59 Intake Total 340 / 1930 480 / 2410 120 / 120 Output Total 300 / 303 Balance 40 / 1627 480 / 2107 120 / 120 Weight last 48 hrs Weight 68.096 kg Weight 63.049 kg Weight 63.049 kg Weight 60.328 kg Physical Exam 2 Const: COMMON NORMALS: no acute distress and patient oriented x3 Resp: COMMON NORMALS: normal respiratory effort, No retractions, No use of accessory muscles and clear to auscultation bilaterally AUSCULTATION: clear to auscultation bilaterally Cardio: COMMON NORMALS: regular rate, regular rhythm, S1 normal heart sound present and S2 normal heart sound present RATE: regular rate RHYTHM: r egular rhythm HEART SOUNDS: S1 normal heart sound present and S2 normal heart sound present GI: COMMON NORMALS: Normal to inspection, nondistended, normoactive bowel sounds present and non-tender Extremity: COMMON NORMALS: no pedal edema Neuro: COMMON NORMALS: patient oriented x3 Psych: COMMON NORMALS: mental status grossly normal Data 04/18/23 12:08 04/18/23 05:46 Micro: Microbiology 04/16/23 21:55 Urine Culture - Preliminary Urine,Clean Catch A&P Assessment and plan (1) COVID-19: (2) Syncope: (3) Ankle sprain and strain: (4) CAD (coronary artery disease): Qualifiers: Coronary Disease-Associated Artery/Lesion type: [place] artery [place] vs. transplanted heart: [place] heart Associated angina: without angina Qualified Code(s): I25.10 - Atherosclerotic heart disease of [place] coronary artery without angina pectoris (5) Mitral regurgitation: Plan Syncope, resolved -This sounds like a vasovagal syncope ? However she does have underlying cardiac etiology CAD ischemic cardiomyopathy ? Serial EKGs no acute ST-T wave changes serial troponins no significant delta troponin, telemetry monitoring ? Off fluids ? Check orthostatic vitals, ? Neurochecks, aspiration precautions, and a stroke scale Hypertension ? Continue home BP medications COVID-19 positivity, ? Does have complaints of sinus congestion, sore throat ? No shortness of breath complaints, lungs clear to auscultation bilaterally ?currently on room air ? As she is high risk of progression to severe COVID, COVID symptoms are mild to moderate, will start her on remdesivir she received loading dose yesterday continue 100 mg IV every 24 hours X2 doses -D-dimer 4.72, no chest pain, no shortness of breath, is on room air Right ankle pain ? On examination right ankle is swollen, erythematous, does have tenderness around the lateral malleolus,, ? X-ray no acute fracture, ? Ultram for pain ? Continues to have significant pain and limited range of motion, will do MRI of right ankle ? Will continue to monitor closely, ? PT OT, ? Consult Dr. Codey PETERS ? Likely secondary to dehydration, resolving Transaminitis likely secondary to COVID-19, continue to monitor Right thigh pain, will do x-ray of right hip, within normal limits Full code, ? Continue Xarelto for DVT prophylaxis Attestations 2 Medical Necessity Statement*: Patient requires hospitalization for persistent right ankle pain, pain with range of motion, requiring MRI, COVID-19 positivity Diagnoses COVID-19 U07.1 Syncope R55 Ankle sprain and strain S93.409A; S96.919A Coronary artery disease involving [place] coronary artery of [place] heart without angina pectoris I25.10 Coronary Disease-Associated Artery/Lesion type: [place] artery [place] vs. transplanted heart: [place] heart Associated angina: without angina Mitral regurgitation I34.0
--- NOTE | 2023-04-18 13:21 | P.PN_ITS ---
Subjective 2 Subjective: Patient seen resting in chair at bedside today. No overnight events. MRI obtained today which showed tiny nondisplaced hairline fracture of fibula and tiny nondisplaced fracture involving lateral aspect of posterior malleolus Vitals/I&O/Wt Last Vital Signs Temp 98.0 F 04/18/23 12:00 Pulse 58 L 04/18/23 12:00 Resp 16 04/18/23 12:00 BP 112/68 04/18/23 12:00 Pulse Ox 97 04/18/23 12:00 O2 Del Method Room Air 04/18/23 12:00 04/17/23 04/18/23 04/18/23 22:59 06:59 14:59 Intake Total 340 / 1930 480 / 2410 120 / 120 Output Total 300 / 303 Balance 40 / 1627 480 / 2107 120 / 120 Weight last 48 hrs Weight 150 lb 2 oz Weight 139 lb Weight 139 lb Weight 133 lb Physical Exam 2 Narrative: BELOW IS A FOCUSED LOWER EXTREMITY EXAM GENERAL: A&O x 3 VASCULAR: DP/PT pulses palpable 2/4 with CFT intact, <3seconds to distal digits DERMATOLOGICAL: Skin turgor and temperature is within normal limits. No interdigital maceration noted. MUSCULOSKELETAL: Tenderness with palpation of medial malleolus right ankle. Tenderness to palpation of the deltoid ligament. Positive eversion stress test with pain elicited. Ankle joint and subtalar joint range of motion within normal limits without pain or crepitus. NEUROLOGICAL: Neurological sensation to the affected foot and ankle is present through L4-S1 dermatomes with no hyper/hypoesthesias, negative Tinel or Valleix's sign IMAGING: Three-view x-rays right ankle taken in the emergency department were personally reviewed by me which show increased medial clear space of the mortise. No readily visualized fracture. Osseous bodies noted about the medial malleolus likely attributed to prior injury. Lateral projection shows incongruency of ankle joint against gravity with increased gapping anteriorly. -MRI right ankle personally interpreted by me which shows nondisplaced hairline fracture of fibula and lateral tuberosity posterior malleolus. No deltoid involvement. Diffuse edema. Data 04/18/23 12:08 04/18/23 05:46 Micro: Microbiology 04/16/23 21:55 Urine Culture - Preliminary Urine,Clean Catch A&P Assessment and plan (1) Ankle sprain and strain: (2) Sprain of right ankle: Plan -Right ankle sprain -Labs and vitals reviewed -VSS -Imaging: X-rays right ankle showed concern for possible soft tissue compromise from right ankle sprain. However, talus is well-positioned within the mortise with no fractures visualized -- MRI revealed hairline fracture of distal fibula and posterior malleolus -Diet: Okay for diet from podiatry stand -No surgical intervention from podiatry during this admission. Right ankle is overall stable. -Based on MRI findings, recommend nonweightbearing to right lower extremity. I believe the cam boot would be a better option for nonweightbearing versus a fiberglass cast at this time. -Weight bearing: Nonweightbearing to right lower extremity in cam boot given new findings on MRI -Discharge plan: Patient is okay to discharge home from podiatry standpoint with right ankle stabilized as described above. Recommend follow-up in the outpatient setting with Dr. Alegre within 2 weeks of discharge. Appreciate physical therapy recommendations to aid patient with nonweightbearing status to right lower extremity -Podiatry will continue to round on patient while inpatient and provide recommendations Attestations 2 Medical Necessity Statement*: See hospitalist note Coding Level of Care Code [facility] Diagnoses Ankle sprain and strain S93.409A; S96.919A Sprain of right ankle S93.401A
--- NOTE | 2023-04-18 14:17 | PM.DCS ---
Discharge Providers Date of Admission: 04/17/23 16:45 Date of Discharge: April 18, 2023 Attending Provider at Admission: Kevin Rodríguez MD Attending Provider at Discharge: Gurpreet Herrera MD Primary Care Provider: Betty Abreu MD Diagnoses at Discharge Discharge Diagnosis (1) Ankle sprain and strain: Status: Acute (2) Sprain of right ankle: Status: Acute Reason for Visit Reason for Visit: Syncope, right ankle swollen Hospital Course Hospital Course Nika Abreu is a 88 year old female with a past medical history of hypertension, hyperlipidemia, CAD status post stenting to circumflex, with history of balloon angioplasty to LAD, history of coronary artery dissection, history of atrial fibrillation on Xarelto, history of left bundle branch block, history of moderate MR, breast cancer, patient lives at home by herself, is ambulatory, can carry out acute obesity living on her own, who presents to [facility] for a fall, with right ankle pain, syncopal episode. Patient tells me that she has been feeling okay recently, no significant recent hospitalizations, no significant health concerns, she has had some sinus congestion, some soreness in her back of her throat, no fevers, chills, no significant cough, no abdominal pain, no diarrhea. Patient tells me that this morning she was getting up, with plans on going to the restroom, she felt that her knees and her legs gave out, she did feel lightheaded and dizzy, her legs felt rubbery, and she fell, she is not 100% if she passed out or not, but she was on the ground for about 20 minutes, when she called her family members to come and her sister. She tells me she was on the floor she was alert and awake, she had right ankle pain, right thigh pain. She does tell me that she bit her tongue yesterday, she did have bleeding from the tip of her tongue, she got silver nitrate to it yesterday, her aspirin and Xarelto were on hold yesterday. Her only complaint right now is right thigh pain right ankle pain feeling really cold. Does have chills currently. No dysuria, hematuria but does have a history of UTIs. She reports that here in the emergency room, she actually got up to the commode to have a bowel movement, which she passed out, this was witnessed by family members, she was able to get back into bed with the help of family numbers, she did develop sinus bradycardia, transient hypotension, but subsequently resolved, alert and awake, currently alert oriented x 3, following all commands, denies any chest pain, no palpitation no facial droop no slurring of words no focal weakness, no focal paresthesias, no chest pain, no palpitations. Patient was admitted to [facility] for syncope, patient was admitted to [facility] for syncope, likely vasovagal, no recurrent syncopal episodes, orthostatics within normal limits, received IV fluids, EKG shows chronic left bundle branch block, no acute ST-T wave changes, Patient was COVID 19 positive, due to high risk of progression to severe COVID received 3 days of inpatient remdesivir, remains relatively asymptomatic, on room air, lungs clear to auscultation, is on Xarelto for history of atrial fibrillation, for which she should continue, discussed hypercoagulable events if so go to emergency room, For her fall and right ankle pain, continues to have right ankle pain with range of motion and hospitalization MRI performed 1. Tiny nondisplaced vertically oriented hairline fracture with edema involving the distal fibula extending into the posterior lateral malleolus. Associated edema. 2. Tiny nondisplaced fracture involving the lateral aspect of the posterior malleolus with a small amount of edema. 3. Diffuse edema involving the lower leg and foot subcutaneous soft tissues. 4. Tenosynovitis involving the peroneal tendons and flexor compartment tendons. 5. Advanced degenerative change involving the hindfoot and midfoot articulations. 6. Ankle mortise remains intact. 7. Chronic avulsion fractures involving the tip of the medial malleolus. patient will be discharged nonweightbearing for at least 4 to 6 weeks, discharged in a [facility] boot, home health care, with close follow-up with Dr. Alegre as outpatient, discharged on tramadol to be used sparingly for pain, rest ice compression elevation, For transaminitis likely sec to COVID-19, monitor as outpatient, repeat blood work in 1 week Physical Exam Const: COMMON NORMALS: no acute distress and patient oriented x3 Resp: COMMON NORMALS: normal respiratory effort, No retractions, No use of accessory muscles and clear to auscultation bilaterally AUSCULTATION: clear to auscultation bilaterally Cardio: COMMON NORMALS: regular rate, regular rhythm, S1 normal heart sound present and S2 normal heart sound present RATE: regular rate RHYTHM: regular rhythm HEART SOUNDS: S1 normal heart sound present and S2 normal heart sound present GI: COMMON NORMALS: Normal to inspection, nondistended, normoactive bowel sounds present and non-tender Extremity: COMMON NORMALS: no pedal edema Neuro: COMMON NORMALS: patient oriented x3 Psych: COMMON NORMALS: mental status grossly normal Discharge Data Studies Completed and Pending Completed Studies During Hospitalization Category Date Time Status XR ankle RT 2V [id number] Stat Exams 04/16/23 14:46 Completed XR chest 1V portable [id number] Stat Exams 04/16/23 14:58 Completed XR foot RT 2V [id number] Stat Exams 04/16/23 14:46 Completed XR hip RT 2-3V wo/w pel* [id number] Routine Exams 04/16/23 17:16 Completed XR knee RT 3V* [id number] Stat Exams 04/16/23 14:56 Completed MR ankle RT wo con* [id number] Stat MRI 04/18/23 10:18 Completed Pending at discharge Category Date Time Status Complete Blood Count w/Auto AM LABS Lab 04/19/23 04:00 Ordered Comprehensive Metabolic Panel AM LABS Lab 04/19/23 04:00 Ordered Magnesium AM LABS Lab 04/19/23 04:00 Ordered NT Pro B Type Natriuretic Pept QAM Lab 04/19/23 06:00 Ordered Phosphorus AM LABS Lab 04/19/23 04:00 Ordered Urine Culture Stat Lab 04/16/23 21:55 Results Radiology Impressions Ankle X-Ray 04/16/23 14:46 IMPRESSION: Ankle soft tissue swelling without acute fracture. Foot X-Ray 04/16/23 14:46 IMPRESSION: No acute findings. Knee X-Ray 04/16/23 14:56 IMPRESSION: At least moderate tricompartment osteoarthritis. Chest X-Ray 04/16/23 14:58 IMPRESSION: No acute findings. Hip/Pelvis X-Ray 04/16/23 17:16 IMPRESSION: Moderate osteoarthritis of the right hip. Laboratory Results WBC 4.96 10^3/uL (3.29-11.43) 04/18/23 05:46 RBC 3.10 10^6/uL (3.85-5.65) L 04/18/23 05:46 Hgb 10.40 g/dL (11.27-16.99) L 04/18/23 12:08 Hct 32.2 % (36-47) L 04/18/23 12:08 MCV 100.3 fl (85-98) H 04/18/23 05:46 MCH 32.6 pg (27-33) 04/18/23 05:46 MCHC 32.5 g/dL (30-55) 04/18/23 05:46 RDW 14.2 % (12.1-15.1) 04/18/23 05:46 Plt Count 136 10^3/cmm (157-399) L 04/18/23 05:46 MPV 9.9 fL (7.4-10.4) 04/18/23 05:46 Neut % (Auto) 63.7 % 04/18/23 05:46 Lymph % (Auto) 20.4 % 04/18/23 05:46 [place] % (Auto) 14.9 % 04/18/23 05:46 Eos % (Auto) 0.6 % 04/18/23 05:46 Baso % (Auto) 0.2 % 04/18/23 05:46 Neut # (Auto) 3.16 10^3/uL (1.8-7.7) 04/18/23 05:46 Lymph # (Auto) 1.0 10^3/uL (0.8-4.8) 04/18/23 05:46 [place] # (Auto) 0.7 10^3/uL (0.2-0.9) 04/18/23 05:46 Eos # (Auto) 0.0 10^3/uL (0.0-0.8) 04/18/23 05:46 Baso # (Auto) 0.0 10^3/uL (0.0-0.1) 04/18/23 05:46 Nucleated RBC % (auto) 0 % 04/18/23 05:46 Nucleated RBCs # 0.0 /100WBC 04/18/23 05:46 D-Dimer 4.76 ug/mLFEU (0-0.59) H 04/16/23 15:06 Sodium 138 mmol/L (136-145) 04/18/23 05:46 Potassium 3.6 mmol/L (3.5-5.1) 04/18/23 05:46 Chloride 102 mmol/L (98-107) 04/18/23 05:46 Carbon Dioxide 23 mmol/L (22-29) 04/18/23 05:46 Anion Gap 16.6 (5-19) 04/18/23 05:46 BUN 18 mg/dL (8-23) 04/18/23 05:46 Creatinine 1.2 mg/dL (0.5-0.9) H 04/18/23 05:46 GFR Calculation Not Reportable 04/18/23 05:46 Glucose 97 mg/dL (65-115) 04/18/23 05:46 Calculated Osmolality 288 mOsm/kg (285-295) 04/18/23 05:46 Lactic Acid 1.2 mmol/L (0.5-2.2) 04/16/23 15:06 Calcium 8.4 mg/dL (8.5-10.5) L 04/18/23 05:46 Phosphorus 2.3 mg/dL (2.5-4.5) L 04/18/23 05:46 Magnesium 2.0 mg/dL (1.7-2.3) 04/18/23 05:46 Iron 25 ug/dL (37-145) L 04/18/23 05:46 TIBC 176 mcg/dl 04/18/23 05:46 % Saturation 14.2 % (20-50) L 04/18/23 05:46 Unsat Iron Binding 151 ug/dL (112-347) 04/18/23 05:46 Ferritin 310 ng/mL (15-150) H 04/18/23 05:46 Total Bilirubin 0.7 mg/dL (0.15-1.2) 04/18/23 05:46 AST 167 U/L (0-32) H 04/18/23 05:46 ALT 239 U/L (0-33) H 04/18/23 05:46 Alkaline Phosphatase 85 U/L (35-105) 04/18/23 05:46 Creatine Kinase 60 U/L (26-192) 04/16/23 15:06 Troponin T Baseline 90 ng/L (0-10) H 04/16/23 15:06 Troponin T 120 Minute 90.19 ng/L (0-10) H 04/16/23 17:09 Delta Troponin T 0.19 ABS# (0-10) 04/16/23 17:09 Troponin T Hi Sens 6Hr 77.98 ng/L (0-10) H 04/16/23 20:47 Troponin T Hi Sens 6Hr Delta -12.02 ng/L (0-12) L 04/16/23 20:47 NT-Pro-B Natriuret Pep 2590 pg/mL (0-450) H 04/18/23 05:46 NT-Pro-B Natriuret Pep Cancelled 04/18/23 05:46 Total Protein 5.5 g/dL (6.6-8.7) L 04/18/23 05:46 Albumin 3.0 g/dL (3.5-5.2) L 04/18/23 05:46 Globulin 2.5 g/dL (1.3-4.6) 04/18/23 05:46 Procalcitonin 0.12 ng/mL (0-0.5) 04/16/23 15:06 TSH 2.93 uIU/mL (0.27-4.20) 04/16/23 15:06 Urine Color Yellow (Yellow) 04/16/23 21:55 Urine Appearance Sl hazy (CLEAR) A 04/16/23 21:55 Urine pH 5 (5-7) 04/16/23 21:55 Ur Specific [place] 1.020 (1.005-1.030) 04/16/23 21:55 Urine Protein Neg (Negative) 04/16/23 21:55 Urine Glucose (UA) Norm (Normal) 04/16/23 21:55 Urine Ketones Negative (Negative) 04/16/23 21:55 Urine Blood 2+ (Negative) H 04/16/23 21:55 Urine Nitrate Negative (Negative) 04/16/23 21:55 Urine Bilirubin Neg (Negative) 04/16/23 21:55 Urine Urobilinogen Norm mg/dL (Negative) 04/16/23 21:55 Ur Leukocyte Esterase 1+ (Negative) H 04/16/23 21:55 Urine RBC 0-4 /hpf (0-2) H 04/16/23 21:55 Urine WBC 15-25 /hpf (0-5) H 04/16/23 21:55 Ur Squamous Epith Cells 0-4 /hpf (0-5) H 04/16/23 21:55 Amorphous Sediment Not Reportable 04/16/23 21:55 Urine Bacteria 1+ /hpf (NONE) H 04/16/23 21:55 Nasal Influ A H1 2009 PCR Not detected (NOT DETECT) 04/16/23 19:48 Adenovirus (PCR) Not detected (NOT DETECT) 04/16/23 19:48 C. pneumoniae DNA (PCR) Not detected (NOT DETECT) 04/16/23 19:48 Coronavirus 229E (PCR) Not detected (NOT DETECT) 04/16/23 19:48 Human Metapneumovir PCR Not detected (NOT DETECT) 04/16/23 19:48 Influenza A (H1) PCR Not detected (NOT DETECT) 04/16/23 19:48 Influenza A (H3) PCR Not detected (NOT DETECT) 04/16/23 19:48 Influenza Type A (PCR) Not detected (NOT DETECT) 04/16/23 19:48 Influenza Type B (PCR) Not detected (NOT DETECT) 04/16/23 19:48 M. pneumoniae (PCR) Not detected (NOT DETECT) 04/16/23 19:48 Parainfluenza 1 (PCR) Not detected (NOT DETECT) 04/16/23 19:48 Parainfluenza 2 (PCR) Not detected (NOT DETECT) 04/16/23 19:48 Parainfluenza 3 (PCR) Not detected (NOT DETECT) 04/16/23 19:48 Parainfluenza 4 (PCR) Not detected (NOT DETECT) 04/16/23 19:48 RSV Type A (PCR) Not detected (NOT DETECT) 04/16/23 19:48 RSV Type B (PCR) Not detected (NOT DETECT) 04/16/23 19:48 Entero/Rhino (PCR) Not detected (NOT DETECT) 04/16/23 19:48 SARS-CoV-2 (PCR) Detected (NOT DETECT) A 04/16/23 19:48 Vitals Last Vital Signs Temp 98.0 F 04/18/23 12:00 Pulse 58 L 04/18/23 12:00 Resp 16 04/18/23 12:00 BP 112/68 04/18/23 12:00 Pulse Ox 97 04/18/23 12:00 O2 Del Method Room Air 04/18/23 12:00 Discharge Plan Discharge Patient Disposition: Home Condition: Stable Prescriptions: New tramadol 50 mg Tablet 25 mg PO Q6H PRN (Reason: Moderate Pain) 7 Days Qty: 14 0RF Continued furosemide 40 mg tablet 40 mg PO BID isosorbide mononitrate 60 mg tablet extended release 24 hr 60 mg PO BID docusate sodium [Colace] 100 mg capsule 100 mg PO DAILY PRN (Reason: Constipation) nitroglycerin 0.4 mg tablet, sublingual 0.4 mg sublingual Q5M PRN (Reason: chest pain) Qty: 30 6RF Rx Instructions: do not exceed 3 doses per episode ferrous sulfate 325 mg (65 mg iron) tablet,delayed release (DR/EC) 325 mg PO BID amiodarone [Pacerone] 200 mg Tablet 200 mg PO DAILY Qty: 30 0RF cyanocobalamin (vitamin B-12) [Vitamin B-12] 1,000 mcg Tablet 1,000 mcg PO DAILY Qty: 30 0RF aspirin 81 mg Tablet,Delayed Release (Dr/Ec) 81 mg PO DAILY@08 Qty: 30 0RF albuterol sulfate 90 mcg/actuation Hfa Aerosol Inhaler 2 puff INHALATION QID PRN (Reason: Shortness Of Breath) famotidine 20 mg Tablet 20 mg PO BID losartan 50 mg tablet 50 mg PO BID 90 Days Qty: 180 0RF carvedilol 3.125 mg Tablet 3.125 mg PO BID 90 Days Qty: 180 0RF potassium chloride 20 mEq tablet extended release 20 meq PO BID latanoprost 0.005 % drops 1 drp ophthalmic (eye) BEDTIME atorvastatin 20 mg tablet 20 mg PO BEDTIME amlodipine 2.5 mg tablet 2.5 mg PO DAILY Xarelto 15 mg tablet 15 mg PO QPM Rx Instructions: must administer with evening meal Discharge Orders: Discharge Order (Routine); Ordered 04/18/23 Ordered By: Gurpreet Herrera Referrals: [facility] [Outside] Betty Abreu MD [Primary Care Provider] - Cory Alegre DPM [Physician] - 3 weeks Discharge Diet: Cardiac Discharge Activity: Resume usual activity Patient Instructions: Opioid Safety Activity Restrictions/Additional Instructions: -please use tramadol sparingly for pain, do not drive, or operate heavy machinery or drink while taking medication Discharge Attestations Time Spent in Discharge Care*: greater than 30 min Status at Discharge: Cognitive status at discharge: cognitively intact, Behavioral status at discharge: cooperative, Quality Metrics Clinical Quality Measures [ No reported AMI, CVA or VTE this stay] Coding Level of Care Code 70159 Total time (in minutes) for Discharge: 45 Diagnoses Ankle sprain and strain S93.409A; S96.919A Sprain of right ankle S93.401A
[2023-04-18] MEDS: acetaminophen 325 mg Tablet 650 MG PO (14:24)
[2023-04-18] MEDS: remdesivir 100 MG in sodium chloride 0.9% (100 ml) 80 ML IV (15:05)
== END 2023-04-18 16:40 | disposition home health service (06) | DRG 312 ==
LOC: ER 16:58 → ICU 18:23 → MEDSURG 04-17 15:02
PROVIDERS: Admitting Provider Internal Medicine; Emergency Provider Family Medicine; PCP Family Medicine; Visit Provider Family Medicine
DX: R55 Syncope and collapse (principal); U07.1 COVID-19; N17.9 Acute kidney failure, unspecified; I48.91 Unspecified atrial fibrillation; Z79.01 Long term (current) use of anticoagulants; I44.7 Left bundle-branch block, unspecified; E78.5 Hyperlipidemia, unspecified; I25.10 Atherosclerotic heart disease of native coronary artery without angina pectoris; Z95.5 Presence of coronary angioplasty implant and graft; I11.0 Hypertensive heart disease with heart failure; I50.9 Heart failure, unspecified; I25.5 Ischemic cardiomyopathy; Z87.440 Personal history of urinary (tract) infections; I34.0 Nonrheumatic mitral (valve) insufficiency; E86.0 Dehydration; R00.1 Bradycardia, unspecified; I95.89 Other hypotension; S82.64XA Nondisplaced fracture of lateral malleolus of right fibula, initial encounter for closed fracture; W01.0XXA Fall on same level from slipping, tripping and stumbling without subsequent striking against object, initial encounter; Y92.008 Other place in unspecified non-institutional (private) residence as the place of occurrence of the external cause
CPT/HCPCS: 36415; 71045; 73502; 73562; 73600; 73620; 73721; 80053; 81001; 82550; 82728; 83540; 83550; 83605; 83735; 83880; 84100; 84145; 84443; 84484; 85014; 85018; 85025; 85378; 87086; 87486; 87581; 87633; 87635; 93005; 94664; 97110; 97161; 97165; 97530; 97760; 99285; C9113; G0378; J0248; J1940; J7030; J7040; L1902; L4350; L4361

== ENCOUNTER → 2023-05-08 12:50 | Outpatient (BNVA) | payer MEDICARE, OTHER, SELFPAY | PROVIDERS: PCP Family Medicine; Visit Provider Podiatrist Foot & Ankle Surgery | DX: S93.401A Sprain of unspecified ligament of right ankle, initial encounter (principal); X58.XXXA Exposure to other specified factors, initial encounter; R55 Syncope and collapse | CPT/HCPCS: 99203 ==

== ENCOUNTER → 2023-11-03 11:15 | Outpatient (BNVA) | payer MEDICARE, OTHER, SELFPAY | PROVIDERS: PCP Family Medicine; Visit Provider Internal Medicine Cardiovascular Disease | DX: I25.10 Atherosclerotic heart disease of native coronary artery without angina pectoris (principal); I48.92 Unspecified atrial flutter; R23.3 Spontaneous ecchymoses; E78.2 Mixed hyperlipidemia; I25.5 Ischemic cardiomyopathy; I34.0 Nonrheumatic mitral (valve) insufficiency; I11.0 Hypertensive heart disease with heart failure; I50.9 Heart failure, unspecified; Z79.01 Long term (current) use of anticoagulants | CPT/HCPCS: 99214 ==

== ENCOUNTER 2023-12-17 09:38 | Outpatient (CLI) | payer MEDICARE, OTHER, SELFPAY ==
--- NOTE | 2023-12-17 10:00 | USCV_ITS ---
Nika Abreu Age: 88 Gender: F : 1935 Exam Date: 12/17/2023 09:49 Ordering Phys: Herber Snyder MD ([email or web address]) Technologist: CT Exam Location: [facility] [place] Indication: chf/ mr BP: 110 / 58 HR: 46 Rhythm: Sinus Technical Quality: Adequate MEASUREMENTS (Male / Female) Normal Values 2D ECHO LVOT Diameter 2.0 cm LV Ejection Fraction MOD 4C 46.7 % LV Ejection Fraction MOD 2C 52.3 % LV Ejection Fraction 2C AL 56.1 % LA Diameter 3.9 cm RA Systolic Volume 4C AL 30.0 ml RA Systolic Volume 4C MOD 28.4 ml LA Sys Volume AL 93.3 cm cubed LA Sys Volume Index AL 56.3 cm cubed/m squared Aorta at Sinotubular Diameter 2.1 cm M-MODE LA Ao Ratio MM 1.9 AV Cusp Separation MM 2.0 cm DOPPLER AV Peak Velocity 182.3 cm/s LVOT Peak Velocity 90.0 cm/s AV Area Cont Eq vti 2.0 cm squared AV Area Cont Eq pk 1.6 cm squared MV Peak Velocity 104.0 cm/s MV Area PHT 1.6 cm squared Mitral E to A Ratio 1.4 TR Peak Velocity 273.5 cm/s TR Peak Gradient 29.9 mmHg TR Mean Velocity 205.0 cm/s TR Mean Gradient 18.6 mmHg TR Velocity Time Integral 86.0 cm TV Peak E Velocity 56.0 cm/s Right Atrial Pressure 3.0 mmHg Pulmonary Artery Systolic Pressu 32.9 mmHg PV Peak Velocity 96.5 cm/s FINDINGS Left Ventricle Moderate hypokinesia of the mid and apical septum in the anteroseptal segments. Moderate hypokinesis of the basal inferior wall segment. overall LV ejection fraction of 45 to 50%. Mild to moderate concentric left-ventricular hypertrophy.Grade III/IV diastolic dysfunction (restrictive filling pattern), severely elevated filling pressures. Right Ventricle The right ventricle is normal in size and function. Right Atrium The right atrium is normal in size. Left Atrium Moderately increased left atrial size. Mitral Valve Mildly thickened mitral valve. Moderate mitral valve regurgitation. Aortic Valve Mild aortic valve regurgitation. Aortic valve sclerosis. Tricuspid Valve Mild tricuspid valve regurgitation. Estimated pulmonary artery peak systolic pressure 33 mmHg Pulmonic Valve Mild pulmonary valve regurgitation. Pericardium Normal pericardium without effusion. Aorta Normal ascending aorta dimension. IVC Inferior vena cava not visualized. CONCLUSIONS 1. Hypokinetic mid and apical anteroseptum, septum and basal inferior wall segments with a diminished ejection fraction of 45 to 50%. 2. Moderately increased left atrial size. 3. Mildly thickened mitral valve. Moderate mitral valve regurgitation. 4. Mild aortic valve regurgitation. Aortic valve sclerosis. 5. Mild tricuspid valve regurgitation. Estimated pulmonary artery peak systolic pressure 33 mmHg. 6. Mild pulmonary valve regurgitation. There is no pericardial effusion. There are no intracardiac masses. Compared to the study from 05/10/2021, there may be a slight improvement in the LV ejection fraction. Dr Herber Snyder MD FACC (Electronically Signed) Final Date: 25 December 2023 07:09 S
== END 2023-12-17 09:39 | disposition home or self-care (01) ==
PROVIDERS: PCP Family Medicine; Visit Provider Internal Medicine Cardiovascular Disease
DX: I50.30 Unspecified diastolic (congestive) heart failure (principal); R06.09 Other forms of dyspnea; I51.89 Other ill-defined heart diseases; R94.39 Abnormal result of other cardiovascular function study; I35.8 Other nonrheumatic aortic valve disorders
CPT/HCPCS: 93306